=== PATIENT | male | born 1940 | race Caucasian/White ===

== ENCOUNTER 2024-06-28 05:46 | Emergency (ER) | payer MEDICARE, SELFPAY ==
[2024-06-28 05:52] VITALS: BP 166/88; PULSE 98; TEMP 37.2; O2SAT 91; BMI 22.6
--- NOTE | 2024-06-28 06:37 | ED_ITS ---
HPI - Abdominal Pain General Chief Complaint: Abdominal Pain Stated Complaint: LEFT FLANK PAIN Time Seen by Provider: 06/28/24 06:21 Source: patient Mode of arrival: walk-in Limitations: no limitations History of Present Illness HPI narrative: 83-year-old male to the emergency department with chief complaint of left-sided flank/abdominal pain. Patient reports it has been ongoing for the last week. He reports it is intermittent in nature. It was worse tonight. Seems to have moved lower to the level of the hip. He reports a history of kidney stones with similar symptoms. He denies any fever, sweats, chills, nausea, vomiting. No blood in the urine. No dysuria, urgency, frequency. He is otherwise at his baseline health. Reports normal bowel movements. Related Data Allergies Allergy/AdvReac Type Severity Reaction Status Date / Time codeine Allergy Unknown Unknown Verified 06/28/24 05:52 Review of Systems ROS Status of ROS 10 or more systems reviewed and unremark able except as noted in history and below PFSH PFSH Social History Little interest or pleasure in doing things: not at all Feeling down, depressed, or hopeless: not at all Exam Narrative Exam Narrative: VITALS: I have reviewed the triage vital signs. GENERAL: Well developed, well appearing adult in no acute distress. NEURO: Alert and oriented. Moves all extremities. Face is symmetric and expressive. EYES: PERRL. No scleral icterus or conjunctival injection. No discharge. HENT: Normocephalic, atraumatic. Hearing is grossly intact. Nares grossly patent and without discharge. Mucous membranes moist. NECK: No JVD. Patient moves neck without restriction. CARDIO: Rhythm regular. Normal rate. No murmur, rub, or gallop. Pulses equal bilaterally in the upper and lower extremity. No lower extremity edema. PULM: Lungs clear to auscultation in all live. No wheezes, rales, or rhonchi. No conversational dyspnea. No splinting, stridor, or accessory muscle use. GI/: Abdomen is soft and non-tender. Normoactive bowel sounds. EXTREMITIES: Symmetric muscle bulk. No joint swelling. No clubbing, cyanosis, or deformity. SKIN: Warm and dry. Normal turgor. No rash or lesions appreciated. PSYCH: Mood, affect, and interaction is appropriate to the setting. Constitutional Vital Signs, click to edit/add: Last Vital Signs Temp 98.9 F 06/28/24 05:52 Pulse 98 H 06/28/24 05:52 Resp 18 06/28/24 05:52 BP 166/88 H 06/28/24 05:52 Pulse Ox 91 L 06/28/24 05:52 O2 Del Method Room Air 06/28/24 05:52 Course Vital Signs Vital signs: Vital Signs Temperature 98.9 F 06/28/24 05:52 Pulse Rate 98 H 06/28/24 05:52 Respiratory Rate 18 06/28/24 05:52 Blood Pressure 166/88 H 06/28/24 05:52 Pulse Oximetry 91 L 06/28/24 05:52 Oxygen Delivery Method Room Air 06/28/24 05:52 Temperature 98.9 F 06/28/24 05:52 Pulse Rate 98 H 06/28/24 05:52 Respiratory Rate 18 06/28/24 05:52 Blood Pressure 166/88 H 06/28/24 05:52 Pulse Oximetry 91 L 06/28/24 05:52 Oxygen Delivery Method Room Air 06/28/24 05:52 MDM - Abdominal Pain MDM Narrative Medical decision making narrative: 83-year-old male to the emergency department chief complaint of left lower quadrant pain. Vital stable, the patient is afebrile. He has no tenderness on exam. CT scan without contrast is ordered to look for kidney stone. CBC, chemistry, urinalysis is ordered. He declines any pain medication. Care was signed out to Dr. Iqbal with results of diagnostic workup and disposition pending. Differential Diagnosis Differential diagnosis: Likely abdominal pain, calculus of kidney, constipation and diverticulitis Medical Records Attestation: I reviewed the patient's medical records. Discharge Plan Discharge Chief Complaint: Abdominal Pain Clinical Impression: Abdominal pain Patient Disposition: Still a Patient Print Language: Azerbaijani Referrals: MARII VAZQUEZ [Primary Care Provider] - 1 week
--- NOTE | 2024-06-28 06:37 | CT_ITS ---
[address] [address] Patient Name: NEGAR SABA MRN: [id number] date: 1940 Sex: M Assigned Patient Location: ER Current Patient Location: .[facility] Accession/Order Number: [id number] Exam Date: 06/28/2024 06:50 Report Date: 06/28/2024 07:23 At the request of: NGOC ALCARAZ Procedure: CT abdomen pelvis wo con EXAMINATION: CT abdomen pelvis wo con HISTORY: left flank pain COMPARISON: No relevant comparison available. TECHNIQUE: Axial, Coronal, and Sagittal images were created without IV contrast. Dose reduction techniques were achieved by using automated exposure control and/or adjustment of mA and/or kV according to patient size and/or use of iterative reconstruction technique. FINDINGS: LUNG BASES: Severe centrilobular emphysema. Focal density identified medial basilar segment of the right lower lobe axial image #5 measuring 3.8 x 1.9 cm LIVER: Scattered subcentimeter hypodensities too small to characterize BILIARY: No dilatation or calcification. PANCREAS: No lesion, fluid collection, ductal dilatation, or atrophy. SPLEEN: No enlargement or focal lesion. ADRENALS: No mass or enlargement. KIDNEYS: Right renal cortical cyst. Asymmetric enlargement of the left kidney with perinephric stranding. Moderate left hydroureteronephrosis extending to a 5.9 mm proximal ureterolith axial image #53. BOWEL/MESENTERY: Moderate hiatal hernia. Nonobstructive bowel gas pattern AORTA/VASCULAR: No aortic aneurysm. Extensive calcific atherosclerosis RETROPERITONEUM: No mass or adenopathy. LYMPH NODES: No adenopathy. URINARY BLADDER: Calcifications identified layering dependently within the urinary bladder, indeterminate measuring up to 10 mm PELVIC ORGANS: Enlarged prostate with calcifications ABDOMINAL WALL: No mass or hernia. BONES: No bony lesion or fracture. OTHER: Negative. CT/CT abdomen pelvis wo con IMPRESSION: 5.9 mm proximal left ureterolith with moderate obstructive uropathy Calcifications in the urinary bladder, indeterminate Right basilar infiltrate, atelectasis suspected Electronically authenticated by: ZEKE TREVINO Date: 06/28/2024 07:23
[2024-06-28 06:51] LABS: Basophils Absolute Auto 0.1 10^3/uL (0.0-0.1); Basophils Percent Auto 0.6 % (0.2-2.0); Eosinophils Absolute Auto 0.1 10^3/uL (0.0-0.7); Hematocrit 45.5 % (42.0-54.0); Hemoglobin 15.3 g/dL (14.0-18.0); Immature Granulocytes Abs Auto 0.04 10^3/uL (0.00-0.03); Immature Granulocytes Pct Auto 0.3 % (0.0-0.5); Mean Corpuscular HGB Conc 33.6 g/dL (29.9-35.2); Mean Corpuscular Hemoglobin 30.8 pg (25.9-34.0); Mean Corpuscular Volume 91.5 fL (80.0-94.0); Mean Platelet Volume 9.2 fL (9.5-13.5); Monocytes Absolute Auto 1.4 10^3/uL (0.3-0.8); Monocytes Percent Auto 11.1 % (1.7-12.0); Neutrophils Absolute Auto 10.1 10^3/uL (1.4-6.5); Platelet Count 371 10^3/uL (150-450); Red Blood Count 4.97 10^6/uL (4.70-6.10); Red Cell Distribution Width 13.2 % (11.0-15.0); White Blood Count 12.8 10^3/uL (4.0-11.0)
[2024-06-28 06:51] LABS: Bilirubin Urine NEGATIVE (NEGATIVE); Blood Urine MODERATE (NEGATIVE); Clarity Urine CLEAR (CLEAR); Color Urine LT. YELLOW (YELLOW); Glucose Urine UA NEGATIVE (NEGATIVE); Ketones Urine 15 mg/dL (NEGATIVE); Leukocyte Esterase Urine NEGATIVE (NEGATIVE); Nitrite Urine NEGATIVE (NEGATIVE); Protein Urine 30 mg/dL (NEG/TRACE); Specific Gravity Urine 1.025 (1.005-1.025); Urobilinogen Urine 0.2 EU/dL (0.2-1.0); pH Urine 5.5 (5.0-9.0)
[2024-06-28 07:00] LABS: Anion Gap 11.1; BUN Creatinine Ratio 13.1; Calcium 9.4 mg/dL (8.5-10.1); Carbon Dioxide 26.6 mmol/L (21.0-32.0); Chloride 98 mmol/L (98-107); Estimated GFR (African America 39 (>=60 mL/min/1.73m^2); Estimated GFR (Non-African Ame 32 (>=60 mL/min/1.73m^2); Glucose 140 mg/dL (74-106); Potassium 3.7 mmol/L (3.5-5.1); Sodium 132 mmol/L (136-145)
[2024-06-28 07:13] LABS: RBC Urine 0-2 #/HPF (0-2); WBC Urine 0-2 #/HPF (NONE SEEN)
[2024-06-28 07:14] LABS: Bacteria Urine NONE SEEN #/HPF (NONE SEEN); Calcium Oxalate Crystals Urine RARE; Crystals Seen? Seen #/HPF (None Seen); Mucus Urine NONE SEEN (NONE SEEN); Squamous Epithelial Cell Urine FEW #/LPF (NONE/RARE)
[2024-06-28 07:15] LABS: Urine Culture Indicated NO
--- NOTE | 2024-06-28 07:50 | ED.GENADUL1 ---
HPI HPI - General Adult General Chief complaint: Abdominal Pain Stated complaint: LEFT FLANK PAIN Time Seen by Provider: 06/28/24 06:21 Source: patient Mode of arrival: walk-in Limitations: no limitations History of Present Illness HPI narrative: 83-year-old male presented to the emergency department and was initially seen by Dr. Slaughter and signed out to me after discussing the case with him thoroughly. Please see his full history and physical exam. Related Data Previous Rx's ?Medication ?Instructions ?Recorded ondansetron 4 mg disintegrating 4 mg PO Q6H PRN nausea and 06/28/24 tablet vomiting #20 tabs tamsulosin 0.4 mg capsule (Flomax) 0.4 mg PO DAILY #7 caps 06/28/24 tramadol 25 mg tablet 25 mg PO Q6H PRN pain #14 tabs 06/28/24 Allergies Allergy/AdvReac Type Severity Reaction Status Date / Time codeine Allergy Unknown Unknown Verified 06/28/24 05:52 Opioid HPI Opioid Management Most Recent Opioid Data: No Data to Display PFSH PFSH Social History Little interest or pleasure in doing things: not at all Feeling down, depressed, or hopeless: not at all Exam Constitutional Vital Signs, click to edit/add: Last Vital Signs Temp 98.9 F 06/28/24 05:52 Pulse 98 H 06/28/24 05:52 Resp 18 06/28/24 05:52 BP 166/88 H 06/28/24 05:52 Pulse Ox 91 L 06/28/24 05:52 O2 Del Method Room Air 06/28/24 05:52 Course Vital Signs Vital signs: Vital Signs Temperature 98.9 F 06/28/24 05:52 Pulse Rate 98 H 06/28/24 05:52 Respiratory Rate 18 06/28/24 05:52 Blood Pressure 166/88 H 06/28/24 05:52 Pulse Oximetry 91 L 06/28/24 05:52 Oxygen Delivery Method Room Air 06/28/24 05:52 Temperature 98.9 F 06/28/24 05:52 Pulse Rate 98 H 06/28/24 05:52 Respiratory Rate 18 06/28/24 05:52 Blood Pressure 166/88 H 06/28/24 05:52 Pulse Oximetry 91 L 06/28/24 05:52 Oxygen Delivery Method Room Air 06/28/24 05:52 Medical Decision Making MDM Narrative Medical decision making narrative: 5.9 mm ureteral stone is identified on the CAT scan. No evidence of UTI and he is discharged home with prescriptions for Flomax, Ultram, and Zofran. The patient states that he is very sensitive to pain medications and that he cannot take codeine so I will put him on a very low-dose of Ultram. Treatment diagnosis and follow-up were discussed with the patient and his . Differential Diagnosis Differential Diagnosis: Kidney stone, UTI Lab Data Lab results reviewed: Yes I reviewed the patient's lab results Labs: Lab Results 06/28/24 06/28/24 Range/Units 06:40 06:45 WBC 12.8 H (4.0-11.0) 10^3/uL RBC 4.97 (4.70-6.10) 10^6/uL Hgb 15.3 (14.0-18.0) g/dL Hct 45.5 (42.0-54.0) % MCV 91.5 (80.0-94.0) fL MCH 30.8 (25.9-34.0) pg MCHC 33.6 (29.9-35.2) g/dL RDW 13.2 (11.0-15.0) % Plt Count 371 (150-450) 10^3/uL MPV 9.2 L (9.5-13.5) fL Neut % (Auto) 79.0 H (43.0-75.0) % Lymph % (Auto) 8.0 L (20.5-60.0) % [place] % (Auto) 11.1 (1.7-12.0) % Eos % (Auto) 1.0 (0.9-7.0) % Baso % (Auto) 0.6 (0.2-2.0) % Neut # (Auto) 10.1 H (1.4-6.5) 10^3/uL Lymph # (Auto) 1.0 L (1.2-3.8) 10^3/uL [place] # (Auto) 1.4 H (0.3-0.8) 10^3/uL Eos # (Auto) 0.1 (0.0-0.7) 10^3/uL Baso # (Auto) 0.1 (0.0-0.1) 10^3/uL Abs Immat Gran (auto) 0.04 H (0.00-0.03) 10^3/uL Imm/Tot Granulo (auto) 0.3 (0.0-0.5) % Sodium 132 L (136-145) mmol/L Potassium 3.7 (3.5-5.1) mmol/L Chloride 98 (98-107) mmol/L Carbon Dioxide 26.6 (21.0-32.0) mmol/L Anion Gap 11.1 BUN 26.0 H (7.0-18.0) mg/dL Creatinine 1.99 H (0.70-1.30) mg/dL Est GFR ( Amer) 39 L (>=60 mL/min/1.73m^2) Est GFR (Non-Af Amer) 32 L (>=60 mL/min/1.73m^2) BUN/Creatinine Ratio 13.1 Glucose 140 H (74-106) mg/dL Calcium 9.4 (8.5-10.1) mg/dL Urine Color Lt. yellow (YELLOW) Urine Clarity Clear (CLEAR) Urine pH 5.5 (5.0-9.0) Ur Specific [place] 1.025 (1.005-1.025) Urine Protein 30 A (NEG/TRACE) mg/dL Urine Glucose (UA) Negative (NEGATIVE) mg/dL Urine Ketones 15 A (NEGATIVE) mg/dL Urine Occult Blood Moderate A (NEGATIVE) Urine Nitrite Negative (NEGATIVE) Urine Bilirubin Negative (NEGATIVE) Urine Urobilinogen 0.2 (0.2-1.0) EU/dL Ur Leukocyte Esterase Negative (NEGATIVE) Urine RBC 0-2 (0-2) #/HPF Urine WBC 0-2 A (NONE SEEN) #/HPF Ur Squamous Epith Cells Few A (NONE/RARE) #/LPF Urine Crystals Seen A (None Seen) #/HPF Calcium Oxalate Crystal Rare Urine Bacteria None seen (NONE SEEN) #/HPF Urine Mucus None seen (NONE SEEN) Ur Culture Indicated? No Imaging Data CT scan - abdomen: Radiologist's impression: ITS Impressions Abdomen/Pelvis CT 06/28/24 06:37 IMPRESSION: 5.9 mm proximal left ureterolith with moderate obstructive uropathy Calcifications in the urinary bladder, indeterminate Right basilar infiltrate, atelectasis suspected Electronically authenticated by: ZEKE TREVINO Date: 06/28/2024 07:23 Discharge Plan Discharge Chief Complaint: Abdominal Pain Clinical Impression: Kidney stone Patient Disposition: Home, Self-Care Time of Disposition Decision: 07:47 Condition: Good Mode of Transportation: Private Vehicle Prescriptions / Home Meds: New tamsulosin [Flomax] 0.4 mg capsule 0.4 mg PO DAILY Qty: 7 0RF ondansetron 4 mg tablet,disintegrating 4 mg PO Q6H PRN (Reason: nausea and vomiting) Qty: 20 0RF tramadol 25 mg tablet 25 mg PO Q6H PRN (Reason: pain) Qty: 14 0RF Print Language: Nigerien Instructions: Kidney Stones (ED), How to Strain Your Urine (ED) Referrals: MARII VAZQUEZ [Primary Care Provider] - 1 week Clyde Goodson MD [Physician] - 1 week
== END 2024-06-28 07:58 | disposition home or self-care (01) ==
PROVIDERS: Student in an Organized Health Care Education/Training Program; Emergency Provider Emergency Medicine; PCP Internal Medicine
DX: N20.0 Calculus of kidney (principal)
CPT/HCPCS: 36415; 74176; 80048; 81001; 85025; 99284

== ENCOUNTER 2025-02-08 11:05 | Emergency (ER) | payer MEDICARE, SELFPAY ==
--- OUTSIDE RECORDS SUMMARY | 2025-01-26 10:28 | XMS_ITS | Encounter Summary ---
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 to be water-tight. An intracameral injection of moxifloxa yuki/hydrocortisone was injected at the end of the case for antiinfective and antiinflammatory prophylaxis. The wound was watertight, and the intraocular pressure to be adequate. The drapes were removed, a drop of prednisolone sodium phosphate/bromphenac/moxifloxacin was placedinto the patient's operative eye, and a plastic eye shield was placed. The patient was taken from the operative suite suffering no complications. documented in this encounter Plan of Treatment Not on file documented as of this encounter Goals Goal Patient Goal Type Associated Problems Recent Progress Patient-Stated? Author Home with OP therapy General Yes Jeanette Orozco RN Note: Evaluation of progress towards goal: Patient plans to return home with OP therapy. documented as of this encounter Procedures Procedure Name Priority Date/Time Associated Diagnosis Comments DE REMV CATARACT EXTRACAP,INSERT LENS 01/26/2025 11:52 AM EDT cataract left eye documented in this encounter Visit Diagnoses Not on filedocumented in this encounter Administered Medications Inactive Administered Medications - up to 3 most recent administrations Medication Order MAR Action Action Date Dose Rate Site lactated ringers infusion 20 mL/hr, intravenous, Continuous, Starting on Vicki 01/26/25 at 1100, Pre-op Restarted 01/26/2025 12:09 PM EDT Continued by Anesthesia 01/26/2025 11:51 AM EDT 20 mL/hr New Bag 01/26/2025 11:06 AM EDT 20 mL/hr 20 mL/hr moxifloxacin 0.5%-prednisoLONE 1%-bromfenac 0.09% ophthalmic drops - Buderer 1 drop, left eye, Every 10 min, First dose on Vicki 01/26/25 at 1100, For 2 doses, Pre-op, Instill into operative eye every ten minutes for 2 doses. Look-alike/sound-alike medication - verify indication for use. Given 01/26/2025 12:01 PM EDT 1 d rop Given 01/26/2025 10:58 AM EDT 1 drop Given 01/26/2025 10:47 AM EDT 1 drop phenylephrine 3.5%, tropicamide 1% in SWFI ophth solution 1 drop, left eye, Every 10 min, First dose on Vicki 01/26/25 at 1100, For 4 doses, Pre-op Given 01/26/2025 11:15 AM EDT 1 drop Given 01/26/2025 11:06 AM EDT 1 drop Given 01/26/2025 10:58 AM EDT 1 drop tetracaine HCl (PF) (ALTACAINE) 0.5 % ophthalmic solution 1 drop 1 drop, left eye, Every 10 min PRN, q 10 minutes x 4, Starting on Vicki 01/26/25 at 1047, For 4 doses, Pre-op Given 01/26/2025 11:15 AM EDT 1 drop Given 01/26/2025 11:06 AM EDT 1 drop Given 01/26/2025 10:58 AM EDT 1 drop documented in this encounter Active and Recently Administered Medications Times are shown in EDT. Scheduled Medication Order 01/24/2025 01/25/2025 01/26/2025 lidocaine 0.75% EPINEPHrine 1:4000 in BSS metabisulfite and PF sterile injection (COMPLETED) left eye, Once, On Vicki 01/26/25 at 1100, For 1 dose, Pre-op, For intraoperative use. Look-alike/sound-alike medication - verify indication for use. 1100 (Due)1200 (Give n - Provider: Danette Santa MD) moxifloxacin 0.5%-prednisoLONE 1%-bromfenac 0.09% ophthalmic drops - Buderer (COMPLETED) 1 drop, left eye, Every 10 min, First dose on Vicki 01/26/25 at 1100, For 2 doses, Pre-op, Instill into operative eye every ten minutes for 2 doses. Look-alike/sound-alike medication - verify indication for use. 1047 (Given - Provid er: Kallie Gunderson RN)1058 (Given - Provider: Kallie Gunderson RN)1201 (Given - Provider: Renée Saravia, CAT - Comment: Per ) moxifloxacin 0.5mg, hydrocortisone 920 mcg (sod succinate) in BSS per 0.2mL ophth solution (COMPLETED) 0.5 mL, left eye, Once, On Vicki 01/26/25 at 1100, For 1 dose, Pre-op, For intraoperative use. 1100 (Due)1200 (Give n - Provider: Danette Santa MD) phenylephrine 3.5%, tropicamide 1% in SWFI ophth solution (COMPLETED) 1 drop, left eye, Every 10 min, First dose on Vicki 01/26/25 at 1100, For 4 doses, Pre-op 1047 (Given - Provid er: Kallie Gunderson RN)1058 (Given - Provider: Kallie Gunderson RN)1106 (Given - Provider: Zenobia Singh RN)1115 (Given - Provider: Zenobia Singh RN) Continuous Medication Order 01/24/2025 01/25/2025 01/26/2025 lactated ringers infusion (CANCELED) 20 mL/hr, intravenous, Continuous, Starting on Vicki 01/26/25 at 1100, Pre-op 1106 (New Bag - Prov ider: Zenobia Singh RN)1151 (Continued by Anesthesia - Provider: KENDRA Merrill)1208 (Paused - Provider: KENDRA Merrill - Comment: Switch to gravity)1209 (Restarted - Provider: KENDRA Merrill)1238 (Due: Order Ending - Provider: Automatic Transfer Provider - Comment: [Order ends at this time. Document the following action when infusion is complete: Stop Bag]) PRN Medication Order 01/24/2025 01/25/2025 01/26/2025 balanced salt soln no.1 irrig. (BSS PLUS) solution (CANCELED) As needed, Starting on Vicki 01/26/25 at 1159, Intra-op 1159 (Given - Provid er: Danette Santa MD - Comment: with epi) balanced salt soln no.2 irrig. (BSS) solution (CANCELED) As needed, Starting on Vicki 01/26/25 at 1159, Intra-op 1159 (Given - Provid er: Danette Santa MD) chondroitin sulf-sod hyaluron (DISCOVISC) intra-ocular injection (CANCELED) As needed, Starting on Vicki 01/26/25 at 1159, Intra-op 1159 (Given - Provid er: Danette Santa MD) EPINEPHrine (ADRENALIN) 1 mg/mL (1 mL) injection (CANCELED) As needed, Starting on Vicki 01/26/25 at 1159, Intra-op 1159 (Given - Provid er: Danette Santa MD - Comment: in BSS PLUS) hypromellose 2 % intraocular injection (CANCELED) As needed, Starting on Vicki 01/26/25 at 1200, Intra-op 1200 (Given - Provid er: Dantete Santa MD) lidocaine (XYLOCAINE) 2 % jelly (CANCELED) As needed, Starting on Vicki 01/26/25 at 1154, Intra-op 1154 (Given - Provid er: Danette Santa MD) tetracaine HCl (PF) (ALTACAINE) 0.5 % ophthalmic solution 1 drop (COMPLETED) 1 drop, left eye, Every 10 min PRN, q 10 minutes x 4, Starting on Vicki 01/26/25 at 1047, For 4 doses, Pre-op 1047 (Given - Provid er: Kallie Gunderson RN)1058 (Given - Provider: Kallie Gunderson RN)1106 (Given - Provider: Zenobia Singh RN)1115 (Given - Provider: Zenobia Singh RN) tetracaine HCl (PF) (ALTACAINE) 0.5 % ophthalmic solution (CANCELED) As needed, Starting on Vicki 01/26/25 at 1153, Intra-op 1145 (Given - Provid er: Austin North RN) documented in this encounter Additional Health Concerns Assessment Noted Time PHQ-9 Depression Total Score: 0 04/06/20 24 6:16 PM EST documented as of this encounter Care Teams Resident Care Supervisor Relationship Specialty Start Date End Date Damion Nuñez MD [address] [address] PCP - General Internal Medicine 02/17/18 documented as of this encounter
--- OUTSIDE RECORDS SUMMARY | 2025-01-26 11:51 | XMS_ITS | Encounter Summary ---
Author Organization [facility] tem Address [id number] [address] [place] [address] Care Team Providers Care Communication Technician Name Role Phone Damion Nuñez MD Primary Care Provider [phone] Reason for Visit * Auth/Cert Specialty Diagnoses / Procedures Referred By Yessica t Referred To Contact Diagnoses cataract left eye Procedures CA REMV CATARACT EXTRACAP,INSERT LENS EXTRACTION CATARACT INTRAOCULAR LENS Danette Santa MD [address] [place] [id number] Phone: tel: fax: Referral ID Status Reason Start Date Expiration Date Visits Re quested Visits Authorized [id number] 1 1 Encounter Details Date Type Department Care Team (Late st Contact Info) Description 01/26/2025 11:51 AM EDT Anesthesia Event [facility] - Surgery [address] [place] [address] Ryan Brown, DO [address] [place] [address] Anesthesia Record Procedure Summary Procedure Name Responsible Anesthesiologist Anesthesia Start Time Anesthesia Stop Time EXTRACTION CATARACT INTRAOCULAR LENS (Left: Eye) Ryan Brown DO 01/26/25 1151 01/26/25 1212 Events Date Time Event Comment 01/26/2025 1036 1151 An Start 1152 An Start Data 1152 An Induction The patient was reevaluated immediately before moderate or deep sedation use and before anesthesia induction. 1152 Patient Ready for Surgeon 1152 Position 1212 an stop data 1212 Transport/Transfer From the OR 1212 Handoff to RN Transported to :Phase II, Spontaneous Ventilation, O2 per Nasal Cannula, 3 LPM Pt. Tolerated procedure well, vital signs stable and document on nursing record Care transferred to receiving RN 1212 An Stop Meds Name Total midazolam (VERSED) injection 2 mg/2 mL 2 mg fentaNYL (SUBLIMAZE) injection 100 mcg lactated ringers infusion 300 mL * Agents No agents on file. * Blood No blood administrations on file. Lines, Drains, and Airways Type Details Placement Removal Wound 01/12/25; 1055; Inci arpit; Eye; Right; LENS SHLD CLR TIDISHIELD ANFG ANST [id number] DISP REPOSABLES 01/12/25 1055 by Karely Santos RN Wound 01/26/25; 1106; Inci arpit; Eye; Left; Clear eye shield 01/26/25 1106 by Renée Saravia RN Peripheral IV Placement Date: 12/31 01/23; Placement Time: 1057; Orientation: Left, Posterior; Location: Hand; Site Prep: Chlorhexadine and isopropyl alcohol; Local Anes: None; Technique: Anatomical landmarks; Inserted by: puja lawson; Insertion Attempts: 1; Patient Tolerance: Tolerated well; Removal Date: 01/26/25; Removal Time: 1238 01/26/25 1057 by Kallie Gunderson RN 01/26/25 1238 by Pat Gunderson RN documented in this encounter Social History Tobacco Use Types Packs/Day Years Used Date Smoking Tobacco: Former Cigarettes Q uit: 01/12/2002 Smokeless Tobacco: Never Comments:quit 20 years ago. Alcohol Use Standard Drinks/Week Comments Yes 0 (1 standard drink = 0.6 oz pur e alcohol) occasional [facility] Utilities Answer Date Recorded In the past 12 months has [employer], oil, or water [employer] threatened to shut off services in your [...] week 04/06/2024 How often do you attend [facility] or hindu services? Never 04/06/2024 Do you belong to any clubs o r organizations such as synagogue groups, unions, fraternal or athletic groups, or [...] Answer Date Recorded Total Score 0 04/06/2024 [facility] - Occupational Stress Questionnaire Answer Date Recorded [...] Recorded Do you need help finding a [facility] career center and/or a training program? No [...] PM EST documented as of this encounter OR Notes * Anesthesia Postprocedure Evaluation - Ryan Brown DO - 01/26/2025 12:32 PM EDT ANESTHESIA POST-EVALUATION [facility] Procedure Summary Date: 01/26/25 Room / Location: [address] SURGERY Anesthesia Start: 1151 Anesthesia Stop: 1212 Procedure: EXTRACTION CATARACT INTRAOCULAR LENS (Left: Eye) Diagnosis: (cataract left eye) Surgeons: Danette Santa MD Responsible Provider: Ryan Brown DO Anesthesia Type: MAC ASA Status: 3 Vitals: 01/26/25 1215 BP: 159/82 Pulse: 62 Resp: 13 Temp: 36.4 ??C (97.5 ??F) SpO2: 96% Patient Evaluated: Phase II Patient Participation: Complete - patient participated Patient Level of Consciousness: Awake and Alert Pain Score: 2 Pain Management: Adequate Airway Patency: Patent Anesthetic Complications: No Cardiovascular Status: Hemodynamically Stable Respiratory Status: Stable/Baseline Post-op Hydration: Euvolemic Final Anesthesia Type: MAC No notable events documented. * Anesthesia Preprocedure Evaluation - Ryan Brown DO - 12/28/2024 8:21 AM EDT Images from the original note were not included. ANESTHESIA PRE-PROCEDURE EVALUATION [facility] Procedure(s): EXTRACTION CATARACT INTRAOCULAR LENS ANESTHESIA PHYSICAL EXAM Patient summary reviewed and nursing notes reviewed. Airway Mallampati: II TM distance: <3 FB Neck ROM: Limited Patient is not intubated Patient does not have tracheostomy Dental Pulmonary : exam normal Cardiovascular : exam normal Neuro Abdominal : exam normal Other Findings ANESTHESIA PLAN ASA 3 Anesthesia Type: MAC Induction: Intravenous Anesthetic risks, plan and alternatives discussed with Patient. Plan discussed with POSTAL INSPECTOR. Airway Management: Nasal Cannula Transfer to Phase II PONV: Low Risk Total Score: 1 Non-smoker Criteria that do not apply: Female patient History of PONV and/or Motion Sickness Intended opioid administration RCRI: Low Risk: Score of 0 = 3.9% (2.8-5.4%) Risk of major cardiac event Score of 1 = 6.0% (4.9-7.4%) Risk of major cardiac event Total Score: 0 Criteria that do not apply: Cerebrovascular Disease Ischemic Heart Disease Congestive Heart Failure Elevated Risk Surgery Pre-operative Treatment with Insulin Pre-operative Creatinine >2 mg/dL / 176.8 mol/L Patient Active Problem List Diagnosis Nephrolithiasis Mineral metabolism disorder Renal cyst Prostate cancer ([facility] Renal insufficiency Calculus of upper urinary tract Closed fracture of right tibia and fibula, initial encounter Acute respiratory failure with hypoxia ([facility]) Other emphysema ([facility]) documented in this encounter Plan of Treatment Not on file documented as of this encounter Goals Goal Patient Goal Type Associated Problems Recent Progress Patient-Stated? Author Home with OP therapy General Yes Jeanette Orozco RN Note: Evaluation of progress towards goal: Patient plans to return home with OP therapy. documented as of this encounter Visit Diagnoses Not on filedocumented in this encounter Administered Medications Inactive Administered Medications - up to 3 most recent administrations Medication Order MAR Action Action Date Dose Rate Site fentaNYL (SUBLIMAZE) injection intravenous, As needed, Starting on Vicki 01/26/25 at 1154, Anesthesia Intra-op Given 01/26/2025 12:00 PM EDT 50 mcg Given 01/26/2025 11:54 AM EDT 50 mcg lactated ringers infusion 20 mL/hr, intravenous, Continuous, Starting on Vicki 01/26/25 at 1100, Pre-op Restarted 01/26/2025 12:09 PM EDT Continued by Anesthesia 01/26/2025 11:51 AM EDT 20 mL/hr New Bag 01/26/2025 11:06 AM EDT 20 mL/hr 20 mL/hr midazolam (VERSED) injection intravenous, As needed, Starting on Vicki 01/26/25 at 1151, Anesthesia Intra-op Given 01/26/2025 11:51 AM EDT 2 mg documented in this encounter Additional Health Concerns Assessment Noted Time PHQ-9 Depression Total Score: 0 04/06/20 24 6:16 PM EST documented as of this encounter Care Teams Communication Technician Relationship Specialty Start Date End Date Damion Nuñez MD [address] [phone] PCP - General Internal Medicine 02/17/18 documented as of this encounter
--- OUTSIDE RECORDS SUMMARY | 2025-01-26 12:45 | XMS_ITS | Encounter Summary ---
Author Organization [employer] [facility] [employer] [facility] Address [facility] [id number] [address] [place] [address] Care Team Providers Care Superintendent Container Terminal Name Role Phone Damion Nuñez MD Primary Care Provider [phone] Reason for Visit * Auth/Cert Specialty Diagnoses / Procedures Referred By Yessica t Referred To Contact Diagnoses cataract left eye Procedures VA REMV CATARACT EXTRACAP,INSERT LENS EXTRACTION CATARACT INTRAOCULAR LENS Danette Santa MD [address] [place] [id number] Phone: tel: fax: Referral ID Status Reason Start Date Expiration Date Visits Re quested Visits Authorized [id number] 1 1 Encounter Details Date Type Department Care Team (Late st Contact Info) Description 01/26/2025 12:45 PM EDT - 01/26/2025 1:30 PM EDT Surgery [facility] - Surgery [address] [place] [id number] Danette Santa MD [address] [place] [address] [phone] EXTRACTION CATARACT INTRAOCULAR LENS [66902 (CPT )] Surgery Details Date/Time Status Location OR Service Patient Class Case Class Case Type Trauma Case? 01/26/2025 12:45 PM Posted [address] Outpatient Surgery Elective Panel 1 Procedure LRB Anes Op Region Wound Class Comments EXTRACTION CATARACT INTRAOCULAR LENS Left Monitored Anesthesia Care Eye Clean Contaminated Surgeon Surgeon Role Service Panel Danette Santa MD Primary Ophthalmology 1 documented in this encounter Social History Tobacco Use Types Packs/Day Years Used Date Smoking Tobacco: Former Cigarettes Q uit: 01/12/2002 Smokeless Tobacco: Never Comments:quit 20 years ago. Alcohol Use Standard Drinks/Week Comments Yes 0 (1 standard drink = 0.6 oz pur e alcohol) occasional [facility] Utilities Answer Date Recorded In the past 12 months has th e electric, gas, oil, or water company threatened to shut off services in your [...] 04/06/2024 How often do you attend chur ch or restoration services? Never 04/06/2024 Do you belong to any clubs o r organizations such as presybeterian groups, unions, fraternal or athletic groups, or [...] Answer Date Recorded Total Score 0 04/06/2024 [place] [facility] - Occupational Stress [...] Recorded Do you need help finding a [facility] career center and/or a training program? No [...] REQUIRE THE PATIENT TO REPURCHASE IT FROM [facility] IN [place], AND REPLACEMENTS ARE NOT COVERED BY MEDICAL INSURANCE. The eye shield is to remain in place for 24 hours after surgery, removing only to put in eye medications. After the first day, the eye shield will be worn when you sleep and when you shower for one week. It is recommended you bring a wheat combine driver to your first postoperative appointment. Activity [...] kept. Please call the [facility] office or [place] office Immediately if you experience any of [...] swallowing) Questions, Problems, Concerns Preop phone number [phone] ext [phone] documented in this encounter Medications at Time of Discharge albuterol (PROVENTIL HFA;VENTOLIN HFA) 90 mcg/actuation inhalerIndication s:Chronic obstructive pulmonary disease, unspecified COPD type ([facility]) Inhale 2 puffs every 6 (six) hours [...] week, then daily for three weeks. 01/26/2025 moxifloxacin HCl (MOXIFLOXACIN 0.5%-PREDNISOLONE 1%-BROMFENAC 0.09% DROPS - BUDERER ) Administer 1 drop into the left eye in the morning and 1 drop before bedtime. Do all this for 30 days. One drop twice a day to operative eye for one week, then daily for three weeks. 01/26/2025 NON FORMULARY Take 12 each by mouth in the morning. Med Name: sun chlorello. NON FORMULARY Take 1 each by mouth in the morning. Med Name: immuno 150. documented as of this encounter H&P Notes * Danette Santa MD - 01/26/2025 11:08 AM EDT HISTORY AND PHYSICAL INTERVAL NOTE: Raul Shea 1940 [id number] H&P reviewed. The patient was examined and [...] 02/04/2017 Performed by Yvon Tello MD at [facility] CYSTOSCOPY HOLMIUM LASER URETEROSCOPY Right 02/04/2017 Performed by Yvon Tello MD at [facility] CYSTOSCOPY LITHOCLAST Right 02/04/2017 Performed by Yvon Tello MD at [facility] CYSTOSCOPY REMOVAL STENT Left 04/08/2021 Performed by Yvon Tello MD at [facility] CYSTOSCOPY REMOVAL STENT Right 02/23/2017 Performed by Yvon Tello MD at [facility] EXTRACTION CATARACT INTRAOCULAR LENS Right 01/12/2025 Performed by Danette Santa MD at [facility] LASER HOLMIUM URETEROSCOPY RENAL STONES < OR=1CM Left 03/25/2021 Performed by Yvon Tello MD at [facility] OPEN REDUCTION INTERNAL FIXATION TIBIA AND FIBULA Right 04/07/2024 Performed by Bradford Meredith MD at [facility] Travel History Travel Screening No screening recorded [...] min Stress: No Stress Concern Present (04/06/2024) [place] [facility] - Occupational Stress Questionnaire Feeling of Stress : Only a little Social Connections: Moderately Isolated (04/06/2024) Social Connection and Isolation Panel [NHANES] Frequency of Communication with Friends and Family: Once a week Frequency of Social Gatherings with Friends and Family: More than three times a week Attends Congregation Services: Never Active Member of Clubs or [...] 02/04/2017 Performed by Yvon Tello MD at [facility] CYSTOSCOPY HOLMIUM LASER URETEROSCOPY Right 02/04/2017 Performed by Yvon Tello MD at [facility] CYSTOSCOPY LITHOCLAST Right 02/04/2017 Performed by Yvon Tello MD at [facility] CYSTOSCOPY REMOVAL STENT Left 04/08/2021 Performed by Yvon Tello MD at [facility] CYSTOSCOPY REMOVAL STENT Right 02/23/2017 Performed by Yvon Tello MD at [facility] EXTRACTION CATARACT INTRAOCULAR LENS Right 01/12/2025 Performed by Danette Santa MD at [facility] LASER HOLMIUM URETEROSCOPY RENAL STONES < OR=1CM Left 03/25/2021 Performed by Yvon Tello MD at [facility] OPEN REDUCTION INTERNAL FIXATION TIBIA AND FIBULA Right 04/07/2024 Performed by Bradford Meredith MD at [facility] Travel History Travel Screening No screening recorded [...] min Stress: No Stress Concern Present (04/06/2024) [place] [facility] - Occupational Stress Questionnaire Feeling of Stress : Only a little Social Connections: Moderately Isolated (04/06/2024) Social Connection and Isolation Panel [NHANES] Frequency of Communication with Friends and Family: Once a week Frequency of Social Gatherings with Friends and Family: More than three times a week Attends Congregation Services: Never Active Member of Clubs or [...] 01/26/2025 11:52 AM EDT Patient Name: Raul Shea MRN Number: [id number] : 1940 Date of Operation: 01/26/25 Surgeon: Danette Santa MD Anesthesia: Topical with IV MAC per Anesthesiologist: Ryan Brown DO SPEECH LANGUAGE PATHOLOGIST ASSISTANT: KENDRA Merrill Preoperative Diagnosis: Nuclear Sclerotic Cataract, LEFT EYE Corneal Astigmatism, LEFT Eye Presbyopia, Left Eye Postoperative Diagnosis: Nuclear Sclerotic Cataract, LEFT EYE Corneal Astigmatism, LEFT Eye Presbyopia, Left Eye Procedure: Phacoemulsification with posterior chamber intraocular lens implantation, LEFT EYE Estimated Blood Loss: NONE Complications: none CDE: 12.60 Specimens: None Implants: Implant Name Type Inv. Item Serial No. Surface To Air Weapons Officer Lot No. LRB No. Used Action Clareon Vivity Toric UV IOL Lens [id number] 22.5 [id number] [employer] NA Left 1 Implanted [...] residual cellular debris was removed with the latvian setting. The capsular bag was inflated with [...] Procedure Name Priority Date/Time Associated Diagnosis Comments VA REMV CATARACT EXTRACAP,INSERT LENS 01/26/2025 11:52 AM EDT cataract left eye documented in this encounter Visit Diagnoses Not on filedocumented in this encounter Administered Medications Inactive Administered Medications - up to 3 most recent administrations Medication Order MAR Action Action Date Dose Rate Site balanced salt soln no.1 irrig. (BSS PLUS) solution As needed, Starting on Vicki 01/26/25 at 1159, Intra-op Given 01/26/2025 11:59 AM EDT 200 mL balanced salt soln no.2 irrig. (BSS) solution As needed, Starting on Vicki 01/26/25 at 1159, Intra-op Given 01/26/2025 11:59 AM EDT 20 mL chondroitin sulf-sod hyaluron (DISCOVISC) intra-ocular injection As needed, Starting on Vicki 01/26/25 at 1159, Intra-op Given 01/26/2025 11:59 AM EDT 1 mL EPINEPHrine (ADRENALIN) 1 mg/mL (1 mL) injection As needed, Starting on Vicki 01/26/25 at 1159, Intra-op Given 01/26/2025 11:59 AM EDT 0.5 mg hypromellose 2 % intraocular injection As needed, Starting on Vicki 01/26/25 at 1200, Intra-op Given 01/26/2025 12:00 PM EDT 1 mL lactated ringers infusion 20 mL/hr, intravenous, Continuous, Starting on Vicki 01/26/25 at 1100, Pre-op Restarted 01/26/2025 12:09 PM EDT Continued by Anesthesia 01/26/2025 11:51 AM EDT 20 mL/hr New Bag 01/26/2025 11:06 AM EDT 20 mL/hr 20 mL/hr lidocaine (XYLOCAINE) 2 % jelly As needed, Starting on Vicki 01/26/25 at 1154, Intra-op Given 01/26/2025 11:54 AM EDT 1 Application Operative Site lidocaine 0.75% EPINEPHrine 1:4000 in BSS metabisulfite and PF sterile injection left eye, Once, On Vicki 01/26/25 at 1100, For 1 dose, Pre-op, For intraoperative use. Look-alike/sound-alike medication - verify indication for use. Given 01/26/2025 12:00 PM EDT 1 mL moxifloxacin 0.5%-prednisoLONE 1%-bromfenac 0.09% ophthalmic drops - Buderer 1 drop, left eye, Every 10 min, First dose on Vicki 01/26/25 at 1100, For 2 doses, Pre-op, Instill into operative eye every ten minutes for 2 doses. Look-alike/sound-alike medication - verify indication for use. Given 01/26/2025 12:01 PM EDT 1 drop Given 01/26/2025 10:58 AM EDT 1 drop Given 01/26/2025 10:47 AM EDT 1 drop moxifloxacin 0.5mg, hydrocortisone 920 mcg (sod succinate) in BSS per 0.2mL ophth solution 0.5 mL, left eye, Once, On Vicki 01/26/25 at 1100, For 1 dose, Pre-op, For intraoperative use. Given 01/26/2025 12:00 PM EDT 0.5 mL phenylephrine 3.5%, tropicamide 1% in SWFI ophth [...] HCl (PF) (ALTACAINE) 0.5 % ophthalmic solution As needed, Starting on Vicki 01/26/25 at 1153, Intra-op Given 01/26/2025 11:45 AM EDT 1 drop Operative Site documented in this encounter Active and Recently [...] eye, Every 10 min, First dose on Vicik 01/26/25 at 1100, For 2 doses, Pre-op, Instill into operative eye every ten minutes for 2 doses. Look-alike/sound-alike medication - verify indication for use. 1047 (Given - Provid er: Kallie Gunderson RN)1058 (Given - Provider: Kallie Gunderson RN)1201 (Given - Provider: Renée Saravia RN - Comment: Per ) moxifloxacin 0.5mg, hydrocortisone [...] 1200, Intra-op 1200 (Given - Provid er: Danette Santa MD) lidocaine (XYLOCAINE) 2 % jelly [...] documented as of this encounter Care Teams Superintendent Container Terminal Relationship Specialty Start Date End Date Damion Nuñez MD [address] [address] PCP - General Internal Medicine 02/17/18 documented as of this encounter
--- OUTSIDE RECORDS SUMMARY | 2025-02-08 11:28 | XMS_ITS | Encounter Summary ---
Author Organization [employer] Address [id number] [address] [place] [address] Care Team Providers Care Chief Procurement Officer Name Role Phone Damion Nuñez MD Primary Care Provider [phone] Encounter Details Date Type Department Care Team ([facility] st Contact Info) Description 04/11/2024 Telephone [facility] Pulmonary/Sleep Medicine [address] [facility] [address] [place] [address] Steffen Awan MD [address] [place] [address] Social History Tobacco Use Types Packs/Day Years Used Date Smoking Tobacco: Former Smokeless Tobacco: Never Comments:quit 20 years ago. Alcohol Use Standard Drinks/Week Comments Yes 0 (1 standard drink = 0.6 oz pur e alcohol) occasional C Utilities Answer Date Recorded In the past 12 months has [employer], gas, oil, or water [employer] [place] threatened to shut off services in your [...] any clubs o r organizations such as adventist groups, unions, fraternal or athletic groups, or [...] Answer Date Recorded Total Score 0 04/06/2024 [facility] ional [facility] - [...] Recorded Do you need help finding a [facility] career center and/or a training program? [...] PM EST documented as of this encounter Miscellaneous Notes * Telephone Encounter - Amina Tatum - 04/11/2024 11:09 AM EST New patient scheduled 05/16 with [facility] in [place] for sob/hypoxia. Will need PFT order. Thanks' documented in this encounter Plan of Treatment Not on file documented as of this encounter Goals Goal Patient Goal Type Associated Problems Recent Progress Patient-Stated? Author Home with OP therapy General Yes Jeanette Orozco, CAT Note: Evaluation of progress towards goal: Patient plans to return home with OP therapy. documented as of this encounter Visit Diagnoses Not on filedocumented in this encounter Additional Health Concerns Assessment Noted Time PHQ-9 Depression Total Score: 0 04/06/20 24 6:16 PM EST documented as of this encounter Care Teams Chief Procurement Officer Relationship Specialty Start Date End Date Damion Nuñez MD [address] [facility] [address] [place] [address] PCP - General Internal Medicine 02/17/18 documented as of this encounter
--- OUTSIDE RECORDS SUMMARY | 2025-02-08 11:28 | XMS_ITS | Encounter Summary ---
Author Organization [employer] Address [facility] [id number] [address] [place] [address] Care Team Providers Care Laboratory Machinist Name Role Phone Damion Nuñez MD Primary Care Provider [phone] Encounter Details Date Type Department Care Team (Late st Contact Info) Description 01/09/2021 Orders Only [facility] [employer] [facility] [place] [address] Transcribe, Orders Support User Pain (Primary Dx) Social History Tobacco Use Types Packs/Day Years Used Date Smoking Tobacco: Former Smokeless Tobacco: Never Alcohol Use Standard Drinks/Week Comments Yes 0 (1 standard drink = 0.6 oz pur e alcohol) Childcare Answer Date Recorded Childcare Unknown 11/10/2018 Employment Answer Date Recorded Employment Unknown 11/10/2018 Purpose - Life Answer Date Recorded Purpose and direction in life Unknown Sex and Gender Information Value Date Recorded Sex Assigned at Not on file Legal Sex Male 11:33 AM EDT Gender Identity Not on file Sexual Orientation Straight 04/06/2024 6: 11 PM EST COVID-19 Exposure Response Date Recorded In the last month, have you been in contact with someone who was confirmed or suspected to have Coronavirus / COVID-19? No / Unsure 01/07/2021 12:30 PM EDT documented as of this encounter Plan of Treatment Not on file documented as of this encounter Results * CT abdomen and pelvis without contrast (12/21/2020 7:30 AM EDT) us Scanning Provider External IMG CT ORDERABLES Fin al Result documented in this encounter Visit Diagnoses Diagnosis Pain- Primary Generalized pain documented in this encounter Care Teams Laboratory Machinist Relationship Specialty Start Date End Date Damion Nuñez MD [address] [facility], [address] [address] PCP - General Internal Medicine 02/17/18 documented as of this encounter
--- OUTSIDE RECORDS SUMMARY | 2025-02-08 11:28 | XMS_ITS | Continuity of Care Document ---
Author Organization [facility] Address [address] [place] [id number] Problems Unknown Problems Results Test Value / Unit Interpretation Reference Ran ge SARS-CoV-2 (COVID-19), RT-PC R/TMA[[id number]] Collected: 04/05/2021 02:58 PM Specimen Received: 04/06/2021 05:06 PM SARS-CoV-2 INTERPRETATION [[id number]] Negative Gayathri l See Note SARS-CoV-2 RNA NOT DETECTEDN egative results do not preclude SARS-CoV-2 infection and should notbe used as the sole basis for patient management decisions. Negativeresults must be combined with clinical observations, patient history,and epidemiological information. Optimum specimen types and timingfor peak viral levels during infections caused by SARS-CoV-2 have notbeen determined. Collection of multiple specimens or types ofspecimens may be necessary to detect virus. Improper specimencollection and handling, sequence variability under primers/probes,or organism present below the limit of detection may lead to falsenegative results. Positive and negative predictive values oftesting are highly dependent on prevalence. False negative testresults are more likely when prevalence is high. SOURCE [[id number]] NASOPHARYNGEAL Normal Note: Methodology is Florin Bridestoryas Real-Time RT-PCR. The expected result or reference range is NEGATIVE (Not Detected). For more information regarding COVID-19 testing to include clinicalinformation, methodology detail, intended use, FDA authorization andrecommended fact sheets for patients or healthcare providers, see NewTest Announcement: SARS-CoV-2 (COVID-19) by NAAT at URL below (note,fact sheets are provided by method given in report:[email or web address]/client-communications/ Alternatively, see downloadable PDF fact sheet at:[email or web address]/DNAHV-49-GQ-PCR Allergies, adverse reactions, alerts No known allergies and adverse reactions Medications No administered medications reported Vital Signs No vital signs reported Social History No smoking Hx information available
--- OUTSIDE RECORDS SUMMARY | 2025-02-08 11:28 | XMS_ITS | Encounter Summary ---
Author Organization [facility] Address [address] [place] [address] Care Team Providers Care Breastfeeding Educator Name Role Phone Damion Nuñez MD Unavailable [phone] Damion Nuñez MD Primary Care Provider [phone] Thursday, Rochelle GOTTI Unavailable [phone] Encounter Details Date Type Department Care Team (Late st Contact Info) Description 04/27/2024 Abstract [facility] Matthew Chen [address] [facility] [address] [place] [phone] Damion Nuñez MD [address] [facility] [address] [place] [address] Social History Tobacco Use Types Packs/Day Years Used Date Smoking Tobacco: Never Smokeless Tobacco: Never Alcohol Use Standard Drinks/Week Comments Yes 1 (1 standard drink = 0.6 oz pur e alcohol) PHQ-2 Answer Date Recorded Patient Health Questionnaire-2 Score 0 12/16/2023 Sex and Gender Information Value Date Recorded Sex Assigned at Not on file Legal Sex Male 8:23 PM EDT Gender Identity Not on file Sexual Orientation Not on file documented as of this encounter Plan of Treatment Upcoming Encounters Date Type Department Care Team (Late st Contact Info) Description 12/04/2025 10:30 AM EDT Office Visit [facility] Chen [address] [facility] [address] [place] [address] Damion Nuñez MD [address] [facility] [address] [place] [address] documented as of this encounter Visit Diagnoses Not on filedocumented in this encounter Care Teams Breastfeeding Educator Relationship Specialty Start Date End Date Damion Nuñez MD [address] [place] [address] [place] [address] PCP - Emilio LICEA 06/01/21 Damion Nuñez MD [address] [place] [address] [place] [address] PCP - General Internal Medicine 12/10/22Thursday, SHEN Byrd [address] [place] [address] Licensed Practical Nurse Family Medicine 05/06/24 05/12/24 documented as of this encounter
--- OUTSIDE RECORDS SUMMARY | 2025-02-08 11:28 | XMS_ITS | Encounter Summary ---
Author Organization [employer] Address [facility] [id number] [address] [place] [address] Care Team Providers Care Levelman Name Role Phone Damion Nueñz MD Primary Care Provider [phone] Encounter Details Date Type Department Care Team (Late st Contact Info) Description 04/12/2024 Orders Only [facility] Pulmonary/Sleep Medicine [address] [facility] [address] [place] [address] Mae Ludwig LPN Acute respiratory failure with hypoxia (CMS-HCC) (Primary Dx) Social History Tobacco Use Types Packs/Day Years Used Date Smoking Tobacco: Former Smokeless Tobacco: Never Comments:quit 20 years ago. Alcohol Use Standard Drinks/Week Comments Yes 0 (1 standard drink = 0.6 oz pur e alcohol) occasional [facility] Utilities Answer Date Recorded In the past 12 months has e electric, gas, oil, or water company [...] often do you attend chur ch or scientologist services? Never 04/06/2024 Do you belong to any clubs o r organizations such as hinduism groups, unions, fraternal or athletic groups, or [...] Answer Date Recorded Total Score 0 04/06/2024 [facility] of Occupat ional Health - Occupational Stress [...] Recorded Do you need help finding a l al career center and/or a training program? No [...] PM EST documented as of this encounter Plan of Treatment Not on file documented as of this encounter Goals Goal Patient Goal Type Associated Problems Recent Progress Patient-Stated? Author Home with OP therapy General Yes Jeanette Orozco RN Note: Evaluation of progress towards goal: Patient plans to return home with OP therapy. documented as of this encounter Results * SPIROMETRY PRE/POST BRONCHODILATOR AND DLCO (04/26/2024 11:26 AM EST) Narrative MANUALLY TRANSCRIBED RESULTS - 05/16/2024 1:03 PM EST Date of Testin05/16/2024 Quality of Data: The patient's efforts are acceptable and reproducible. Test Performed: Pulmonary Function Test Spirometry Findings: Spirometry shows moderately reduced FEV1 to 67 of predicted with improvement by 15% after bronchodilators. Forced vital capacity is normal. FEV1/FVC ratio is severely reduced to 0.36 that improved to 0.45 after bronchodilators however continues to be obstructed. The response to bronchodilators is positive. Flow volume loops is consistent with severe obstructive pattern Diffusion Capacity: Diffusion capacity is reduced to 65% of predicted. Conclusions: The study is consistent with obstructive lung disease with reduction in diffusion capacity indicating parenchymal involvement. Most likely secondary to COPD however there is positive response to bronchodilators. Clinical correlation advised Steffen Awan MD 05/16/24 us Steffen Awan MD PFT ORDERABLES Final Result MANUALLY TRANSCRIBED RESULTS documented in this encounter Visit Diagnoses Diagnosis Acute respiratory failure with hypoxia (CMS-HCC)- Primary Acute respiratory failure with hypoxia (CMS-HCC) documented in this encounter Additional Health Concerns Assessment Noted Time PHQ-9 Depression Total Score: 0 04/06/20 24 6:16 PM EST documented as of this encounter Care Teams Levelman Relationship Specialty Start Date End Date Damion Nuñez MD [address] [facility] [address] [place] [address] PCP - General Internal Medicine 02/17/18 documented as of this encounter
--- OUTSIDE RECORDS SUMMARY | 2025-02-08 11:28 | XMS_ITS | Encounter Summary ---
Author Organization [employer] Address [facility]-[id number] [address] [place] [address] Care Team Providers Care Ranch Hand Name Role Phone Damion Nuñez MD Primary Care Provider [phone] Encounter Details Date Type Department Care Team (Late st Contact Info) Description 12/09/2016 Telephone [facility] [address] [place] [phone] Yvon Tello MD [address] [place] [id number] Social History Tobacco Use Types Packs/Day Years Used Date Smoking Tobacco: Former Smokeless Tobacco: Never Alcohol Use Standard Drinks/Week Comments Yes 0 (1 standard drink = 0.6 oz pur e alcohol) Sex and Gender Information Value Date Recorded Sex Assigned at Not on file Legal Sex Male 11:33 AM EDT Gender Identity Not on file Sexual Orientation Straight 04/06/2024 6: 11 PM EST documented as of this encounter Plan of Treatment Not on file documented as of this encounter Visit Diagnoses Not on filedocumented in this encounter Care Teams Ranch Hand Relationship Specialty Start Date End Date Damion Nuñez MD [address] [facility] [address] [place] [phone] PCP - General Internal Medicine 02/17/18 documented as of this encounter
--- OUTSIDE RECORDS SUMMARY | 2025-02-08 11:28 | XMS_ITS | Encounter Summary ---
Author Organization [facility] Address [address] [place] [address] Care Team Providers Care Subject Scientific Research Name Role Phone Damion Nuñez MD Unavailable [phone] Damion Nuñez MD Primary Care Provider [phone] Encounter Details Date Type Department Care Team (Late Contact Info) Description 06/29/2024 Abstract [facility] [place] [address] [facility] 110 [place] [phone] Damion Nuñez MD [address] [facility] [address] [place] [address] Social History Tobacco Use Types Packs/Day Years Used Date Smoking Tobacco: Never Smokeless Tobacco: Never Alcohol Use Standard Drinks/Week Comments Yes 1 (1 standard drink = 0.6 oz pur e alcohol) PHQ-2 Answer Date Recorded Patient Health Questionnaire-2 Score 0 06/22/2024 Sex and Gender Information Value Date Recorded Sex Assigned at Not on file Legal Sex Male 8:23 PM EDT Gender Identity Not on file Sexual Orientation Not on file documented as of this encounter Plan of Treatment Upcoming Encounters Date Type Department Care Team (Late st Contact Info) Description 12/04/2025 10:30 AM EDT Office Visit [facility] [place] [facility] [address] [facility] [address] [place] [phone] Damion Nuñez MD 112 [facility] [address] [place] [address] documented as of this encounter Visit Diagnoses Not on filedocumented in this encounter Care Teams Subject Scientific Research Relationship Specialty Start Date End Date Damion Nuñez MD [address] [facility] [address] [place] [address] PCP - Emilio LICEA 06/01/21 Damion Nuñez MD [address] [facility] [address] [place] [address] PCP - General Internal Medicine 12/10/22 documented as of this encounter
--- OUTSIDE RECORDS SUMMARY | 2025-02-08 11:28 | XMS_ITS ---
Author Organization [employer] Address [id number] [address] [place] [address] Care Team Providers Care Credit Verification Clerk Name Role Phone Damion Nuñez MD Primary Care Provider [phone] Active Problems Problem Noted Date Diagnosed Date Acute respiratory failure with hypoxia Other emphysema 04/08/2024 Closed fracture of right tib ia and fibula, initial encounter 04/06/2024 Calculus of upper urinary tract 01/22/2021 Overview (01/22/2021): Added automatically from request for surgery [id number] Renal insufficiency 02/17/2018 Overview (01/20/2022): ==== 01/20/2022 ==== most recent creatinine and GFR were normal. Basically 1st baseline creatinine 1.32. Patient really has not had primary medical care for years prior. Patient contact Dr. Nuñez is office. Copy of creatinine given the patient Prostate cancer 12/08/2016 Overview (01/20/2022): ==== 01/20/2022 ==== PSA 6.9.----8.23. September 2021. ==== 07/15/2021 ==== I again went through patient has well as significant other the rationale for active surveillance the need for periodic biopsies revealed discussed imaging study with MRI. Biopsy potentially under anesthesia. He understands all this for an wishes only to follow with PSA potential rectal exams in the future. ==== 01/21/2021 ==== with a discuss prostate cancer after resolution of stone ==== 01/07/2021 ==== lost to follow-up. PSA 6.07 December 2020. LORI is benign ==== 12/08/2016 ==== good size prostate on CT. ==== 04/13/2017 ==== New problem, additional workup planned. PSA 6.89. Previous PSA 6.98. 65 cc prostate #### 2 areas G 3+3=6 5%. NCCN Very low Risk prostate cancer. Life tables approx 17-18 years at the best quartile (average 11.11) ==== 08/10/2017 ==== here with and daughter and He wishes active surveillance. He understands need for psa. He does not want MRI and recent NCCN guidelines no need for molecular testing Assessment & Plan (07/28/2022 2:19 PM EST): Patient is satisfied with monitoring PSA only. PSA 6.9. It is a good number for him. Stable for him. Will see him back in 6 months time with PSA. I ordered 1 but if he gets 1 through his PCP that is fine as well Assessment & Plan (01/20/2022 1:54 PM EDT): Still only wants to check psa only. He is happy at this point. Assessment & Plan (01/07/2021 1:11 PM EDT): Give consideration for MRI or surveillance biopsy. Assessment & Plan (02/17/2018 1:38 PM EDT): The PSA centrally stable. See him back in 6 months time with a PSA repeat. Patient wishes to maintain active surveillance Assessment & Plan (06/08/2017 1:13 PM EST): New problem, additional workup planned. We had long discussion re: the NCCN guidelines and his options. Based on guidelines leaning towards ACtive Surveillance. Name date of confirmed on path report. Path report was given. Printed material given as well. NCCN guidelines as well. PLAN: Return to clinic 2 months. Patient to bring questions. 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 No family history. Mixed calcium oxalate stone. 2014 urine litho link relatively decent. Discussed adding citrate with lemon juice and increasing fluids. ==== 11/26/2016 ==== patient has been drinking fluids as well as taking lemon juice Renal cyst 11/25/2016 Overview (01/20/2022): ==== 01/20/2022 ==== ultrasound stable status no indication for any further evaluation. ==== 07/15/2021 ==== stable simple appearing cyst was visualized on ultrasound +++++++++ 11/25/2016 ALLSCRIPTS SUMMARY +++++++++++ Spring 2013 incidentally found 2.2 cm left exophytic superior pole lesion with questionable calcification. Subsequent MRI demonstrates hyperdense cyst as well as smaller simple cyst. Nephrolithiasis 11/04/2016 Overview (01/20/2022): ==== 01/20/2022 ==== no flank pain. leila is negative for stones and stable mild dilation--not an issue. ==== 07/15/2021 ==== status post left ureteroscopy stent then room placement stent removal. Ultrasound demonstrates basically some fullness left greater than right but bilateral ureteral jets are noted in he is asymptomatic from that standpoint. Repeat ultrasound but 6 months ==== 01/21/2021 ==== no significant discomfort. Stone may have migrated little bit proximally. Hounsfield units are greater than 1300. This would exclude to a degree ESWL. PLAN: Ureteroscopy holmium laser lithotripsy left side ==== 01/21/2021 ==== Established problem, worsening. Acute onset left-sided discomfort ER visit. About a 6-8 mm stone left UPJ. He is on tamsulosin. Plan: Full discussion as below. It is calcified based on the CT KUB portion. By this spine on the left. Acceptable plan for the patient is continue on with medical expulsion therapy KUB in 2 weeks if no progression then proceed with either ESWL or ureteroscopy.. +++++++++ 01/21/2021 ALLSCRIPTS SUMMARY +++++++++++ 2013 through 2014 had a long medical expulsive therapy stone right ureter eventually passed at the time of induction of anesthesia for ureteroscopy. Assessment & Plan (01/21/2021 3:16 PM EDT): We discussed low likelihood of success with ESWL given the Hounsfield units. Discussed higher success rate with the ureteroscopy for proximal stone. Understands may have a stent as well. Understands he could have a ureter which is narrow enough that would necessitate us to place a stent and come back later. Assessment & Plan (01/07/2021 1:04 PM EDT): Urinalysis was obtained: yes today Stone was Documented on imaging (CT/KUB/renal leila) CT scan Stone size and location: left sie approx 8mm prox ureter/UPJ If stone<= 10mm and non-obstructing observation was offered. Yes but not recommended If stone <= 10mm and in the distal ureter Medical expulsive therapy discussed and offered: N/a If observation/ medical expulsive therapy was not elected and the stone was in the proximal ureter, patient was informed the ESWL is the procedure with the least morbidity and lowest complication rate, but URS has a greater stone-free rate in a single procedure.yes If observation/ medical expulsive therapy was not elected and the stone was in the mid or distal ureter URS was discussed as first-line therapy. n/a Assessment & Plan (04/29/2017 1:45 PM EST): Stone protocol CT scans negative for hydronephrosis. Negative for any stones in the ureter. The calcification seen in the dependent portion of the bladder are certainly just that and from his prior cystolitholapaxy. Assessment & Plan (04/13/2017 2:44 PM EST): ==== 04/13/2017 ==== patient did have a right stent removal. Had relief of pain for short period time but has had persistent right-sided colic. Evaluate with CT scan for any residual calculi or any evidence of hydronephrosis. Assessment & Plan (12/08/2016 11:46 AM EDT): Established problem, worsening. Right proximal 8 mm stone. Calcified. Also some bladder stones. Large prostate on CT. Success rate with a ESWL certainly less than ureteroscopy also cannot treat bladder stones with ESWL. Plan: Discussed ureteroscopy in detail. Holmium laser lithotripsy. Probable stenting. In the meantime will give medical expulsive therapy. Assessment & Plan (11/26/2016 1:14 PM EDT): Established problem, worsening. KUB suggests 7 millimeter stone on the right. This will be larger than prior. Therefore CT scan to confirm. Current Treatment and Therapy Plans No current plan information found. Past Treatment and Therapy Plans No past plan information found. Lifetime Dose Tracking * Chemical Lifetime Dose Automatic Entry Manual Entr y Fluoroscopy 44.12 mGy 44.12 mGy 0 mGy Resolved Problems Problem Noted Date Diagnosed Date Resolved Date Urinary urgency 11/25/2016 02/17/2018 Overview (11/25/2016): +++++++++ 11/25/2016 ALLSCRIPTS SUMMARY +++++++++++ Had urgency frequency but these symptoms resolved after stone passage.
--- OUTSIDE RECORDS SUMMARY | 2025-02-08 11:28 | XMS_ITS | Clinical Summary ---
Author Organization [facility] Address [address] [place] [address] Care Team Providers Care Clothes Separator Name Role Phone Damion Nuñez MD Unavailable [phone] Damion Nuñez MD Primary Care Provider [phone] Allergies Active Allergy Reactions Criticality Noted Date Comments Codeine Other 02/04/2017 Pt stated he felt edgy and uptight when he took T3. 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 Family History Relation Name Status Comments Father Mother Social History Tobacco Use Types Packs/Day Years Used Date Smoking Tobacco: Never Smokeless Tobacco: Never Tobacco Cessation:Counseling Given: Not Answered Alcohol Use Standard Drinks/Week Comments Yes 1 (1 standard drink = 0.6 oz pur e alcohol) PHQ-2 Answer Date Recorded Patient Health Questionnaire-2 Score 0 06/22/2024 Sex and Gender Information Value Date Recorded Sex Assigned at Not on file Legal Sex Male 8:23 PM EDT Gender Identity Not on file Sexual Orientation Not on file Last Filed Vital Signs Vital Sign Reading Time Taken Comments Blood Pressure 128/70 06/22/2024 11:29 AM EST Pulse 70 06/22/2024 11:29 AM EST Temperature - - Respiratory Rate - - Oxygen Saturation 95% 06/22/2024 11:29 AM EST Inhaled Oxygen Concentration - - Weight 68 kg (150 lb) 06/22/2024 11:29 AM EST Height 170.2 cm (5' 7 ) 06/22/2024 11:29 AM EST Body Mass Index 23.49 06/22/2024 11:29 AM EST Plan of Treatment Upcoming Encounters Date Type Department Care Team (Late st Contact Info) Description 12/04/2025 10:30 AM EDT Office Visit [facility] [place] [facility] [address] [facility] [address] [place] [phone] Damion Nuñez MD [address] [facility] [address] [place] [address] Health Maintenance Due Date Last Done Comments Influenza Vaccine (#1) 2025 Medicare Annual Wellness (AWV) 06/22/2025 06/22/2024, 12/16/2023, 12/10/2022 Pneumococcal Vaccine: 65+ Years (1 of 2 - PCV) 06/22/2025 Postponed from 09/01 (Patient Refused) Insurance [employer] Care Teams Clothes Separator Relationship Specialty Start Date End Date Damion Nuñez MD [address] [facility] [address] [place] [address] PCP - [place] VINAYAK 06/01/21 Damion Nuñez MD [address] [facility] [address] [place], [place] [phone] PCP - General Internal Medicine 12/10/22
--- OUTSIDE RECORDS SUMMARY | 2025-02-08 11:28 | XMS_ITS | Encounter Summary ---
Author Organization [facility] Address [address] [place] [address] Care Team Providers Care Geographic Information System Surveyor Name Role Phone Damion Nuñez MD Unavailable [phone] Damion Nuñez MD Primary Care Provider [phone] Encounter Details Date Type Department Care Team (Late st Contact Info) Description 06/21/2024 Abstract [facility] [place] [facility] [address] [place] [address] [place] [phone] Damion Nuñez MD [address] [facility] [address] [place] [address] Social History Tobacco Use Types Packs/Day Years [...] on file documented as of this encounter Functional Status * Over the past 2 weeks, how often have you been bothered by any of the following problems? Question Answer Date of Assessment Author Little interest or pleasure in doing things Not at all 06/22/2024 11:00 AM Holli Rasmussen L PN Feeling down, depressed, or hopeless Not at all 06/22/2024 11:00 AM Holli Rasmussen L PN Patient Health Questionnaire -2 Score 0 06/22/2024 11:00 AM Holli Rasmussen L PN documented as of this encounter Plan of Treatment Upcoming Encounters Date Type Department Care Team (Late st Contact Info) Description 12/04/2025 10:30 AM EDT Office Visit [facility] [place] [address] [facility] [address] [place] [address] Damion Nuñez MD [address] [place] [address] [place] [address] documented as of this encounter Visit Diagnoses Not on filedocumented in this encounter Care Teams Geographic Information System Surveyor Relationship Specialty Start Date End Date Damion Nuñez MD [address] [facility] [address] [place] [address] PCP - Emilio LICEA 06/01/21 Damino Nuñez MD [address] [facility] [address] [place] [address] PCP - General Internal Medicine 12/10/22 documented as of this encounter
--- OUTSIDE RECORDS SUMMARY | 2025-02-08 11:28 | XMS_ITS | Encounter Summary ---
Author Organization [facility] Address [address] [place] [address] Care Team Providers Care Fiscal Analyst Name Role Phone Damion Nuñez MD Unavailable [phone] Damion Nuñez MD Primary Care Provider [phone] Encounter Details Date Type Department Care Team (Late st Contact Info) Description 06/22/2024 Abstract [facility] [place] [facility] [address] [place] [address] [place] [phone] Damion Nuñez MD [address] [facility] [address] [place] [address] Social History Tobacco Use Types Packs/Day Years [...] Visit [facility] [place] [address] [facility] [address] [place] [address] Damion Nuñez MD [address] [facility] [address] [place] [address] documented as of this encounter Visit Diagnoses Not on filedocumented in this encounter Care Teams Fiscal Analyst Relationship Specialty Start Date End Date Damion Nuñez MD [address] [facility] [address] [place] [address] PCP - Emilio LICEA 06/01/21 Damion Nuñez MD [address] [facility] [address] [place] [address] PCP - General Internal Medicine 12/10/22 documented as of this encounter
--- OUTSIDE RECORDS SUMMARY | 2025-02-08 11:28 | XMS_ITS | Clinical Summary ---
Author Organization [employer] Address [id number] [address] [place] [address] Care Team Providers Care Fabric Sourcer Name Role Phone Damion Nuñez MD Primary Care Provider [phone] Allergies Active Allergy Reactions Criticality Noted Date Comments Codeine Other (See Comments) 02/04/2017 Pt stated he felt edgy and uptight when he took T3. Methylprednisolone Swelling 01/21/2017 Pain Medicine Anxiety Low 01/21/2017 Pt does not know the name of the medicine. Medications albuterol (PROVENTIL HFA;VENTOLIN HFA) 90 mcg/actuation inhalerIndicat ions:Chronic obstructive pulmonary disease, unspecified COPD type ([facility]) Inhale 2 puffs every 6 (six) hours as needed for wheezing. 18 g 11 05/16/20 24 Active diphenhydrAMIN E (BENADRYL) 25 mg capsule Take 1 capsule (25 mg total) by mouth nightly as needed for itching. Active APPLE CIDER VINEGAR ORAL Take 3 capsules by mouth in the morning. Active NON FORMULARY Take 12 each by mouth in the morning. Med Name: sun chlorello. Active NON FORMULARY Take 1 each by mouth in the morning. Med Name: immuno 150. Active moxifloxacin HCl (MOXIFLOXACIN 0.5%-PREDNISOL ONE 1%-BROMFENAC 0.09% DROPS - BUDERER ) Administer 1 drop to the right eye in the morning for 14 days. One drop twice a day to operative eye for one week, then daily for three weeks. 01/27/20 25 025 Active moxifloxacin HCl (MOXIFLOXACIN 0.5%-PREDNISOL ONE 1%-BROMFENAC 0.09% DROPS - BUDERER ) Administer 1 drop into the left eye in the morning and 1 drop before bedtime. Do all this for 30 days. One drop twice a day to operative eye for one week, then daily for three weeks. 01/27/20 25 025 Active tiotropium-olo dateroL (STIOLTO RESPIMAT) 2.5-2.5 mcg/actuation mistIndication s:Chronic obstructive pulmonary disease, unspecified COPD type ([facility]) Inhale 2 Inhalations in the morning. 12 g 11 05/16/20 24 025 Discontinued(T herapy completed) moxifloxacin HCl (MOXIFLOXACIN 0.5%-PREDNISOL ONE 1%-BROMFENAC 0.09% DROPS - BUDERER ) Administer 1 drop to the right eye in the morning and 1 drop before bedtime. Do all this for 30 days. One drop twice a day to operative eye for one week, then daily for three weeks. 01/13/20 025 Discontinued Active Problems Problem Noted Date Diagnosed Date Acute respiratory failure with hypoxia Other emphysema 04/08/2024 Closed fracture of right tib ia and fibula, initial encounter 04/06/2024 Calculus of upper urinary tract 01/22/2021 Overview (01/22/2021): Added automatically from request for surgery [id number] Renal insufficiency 02/17/2018 Overview (01/20/2022): ==== 01/20/2022 ==== most recent creatinine and GFR were normal. Basically 1st baseline creatinine 1.32. Patient really has not had primary medical care for years prior. Patient contact Dr. Nuñez is office. Copy of creatinine given the patient Prostate cancer 12/08/2016 Overview (01/20/2022): ==== 01/20/2022 ==== PSA -2020 6.9.----8.23. September 2021. ==== 07/15/2021 ==== I [...] Previous PSA 6.98. 65 cc prostate #### -2016 2 areas G 3+3=6 5%. NCCN Very [...] than prior. Therefore CT scan to confirm. Resolved Problems Problem Noted Date Diagnosed Date Resolved Date Urinary urgency 11/25/2016 02/17/2018 Overview (11/25/2016): +++++++++ 11/25/2016 ALLSCRIPTS SUMMARY +++++++++++ Had urgency frequency but these symptoms resolved after stone passage. Encounters Date Type Department Care Team Description 01/26/2025 12:45 PM EDT - 01/26/2025 1:30 PM EDT Surgery [facility] - Surgery [address] [place] [address] Danette Santa MD EXTRACTION CATARACT INTRAOCULAR LENS [59658 (CPT )] 01/26/2025 11:51 AM EDT Anesthesia Event [facility] - Surgery [address] [place] [address] Ryan Brown, DO 01/26/2025 10:28 AM EDT - 01/26/2025 12:39 PM EDT Hospital Encounter [facility] - Surgery [address] [place] [address] Danette Santa MD Discharge Disposition: Home 01/26/2025 Travel 01/12/2025 12:45 PM EDT - 01/12/2025 1:30 PM EDT Surgery [facility] - Surgery [address] [place] [address] Danette Santa MD EXTRACTION CATARACT INTRAOCULAR LENS [[id number] (CPT )] 01/12/2025 12:02 PM EDT Anesthesia Event [facility] - Surgery [address] [place] [address] Grant Quiñones MD Reynolds, Vern D, DO 01/12/2025 10:33 AM EDT - 01/12/2025 1:02 PM EDT Hospital Encounter [facility] - Surgery [address] [place] [address] Danette Santa MD Discharge Disposition: Home 01/12/2025 Travel 12/22/2024 10:31 AM EDT - 12/22/2024 11:59 PM EDT Hospital Encounter [facility] - Cardiovascular [address] [place] [address] Grant Quiñones MD Preop examination; Other emphysema ([facility]) Discharge Disposition: Home 12/22/2024 10:30 AM EDT Procedure visit [facility] - Pre Admit [address] [place] [address] Preop examination (Primary Dx); Other emphysema ([facility]) 12/22/2024 Travel from Last 3 Months Family History Relation Name Status Comments Father Mother Social History Tobacco Use Types Packs/Day Years Used Date Smoking Tobacco: Former Cigarettes Q uit: 01/12/2002 Smokeless Tobacco: Never Tobacco Cessation:Counseling Given: Not Answered Comments:quit 20 years ago. Alcohol Use Standard Drinks/Week Comments Yes 0 (1 standard drink = 0.6 oz pur e alcohol) occasional [facility] Utilities Answer Date Recorded In the past [...] often do you attend chur ch or tenriism services? Never 04/06/2024 Do you belong to any clubs o r organizations such as amish groups, unions, fraternal or athletic groups, or [...] Answer Date Recorded Total Score 0 04/06/2024 [facility] of Occupat ional Health - Occupational Stress [...] Recorded Do you need help finding a [employer] [facility] me center and/or a training program? No 04/06/2024 [...] Orientation Straight 04/06/2024 6: 11 PM EST Last Filed Vital Signs Vital Sign Reading [...] Mass Index 21.61 01/26/2025 11:00 AM EDT Plan of Treatment Health Maintenance Due Date Last Done Comments DTaP,Tdap and Td Vaccines (1 - Tdap) 1960 Zoster (Shingles) Vaccine (1 of 2) 1960 Fall Risk Screening 2006 Influenza Vaccine 01/30/2025 Depression Screening 04/06/2025 04/06/2024 Tobacco Screening 01/26/2026 01/26/2025 Abdominal Aortic Aneurysm (A AA) Screen Completed 01/06/2022, 06/11/2021, 04/09/2021 Goals Goal Patient Goal Type Associated Problems Recent Progress Patient-Stated? Author Home with OP therapy General Yes Jeanette Orozco RN Note: Evaluation of progress towards goal: Patient plans to return home with OP therapy. Medical Devices Implanted Type Area Auxiliary Engineer Device Identifier Shelf Expiration Date Model / Serial / Lot Clareon Vivity Toric Iol Implanted:Qty: 1 on 01/12/2025 by Danette Santa MD at [facility] Lens [employer] 03/10/2027 CCWET4 / [id number] / Clareon Vivity Toric Uv Iol Implanted:Qty: 1 on 01/26/2025 by Danette Santa MD at [facility] Lens Left: Eye [employer] 06/30/2027 CCWET4 / [id number] / NA Nail Im 345mm 12mm Mr Conditional Tn Adv Ti Al Vndm Pk Adlt - Sna - [id number] Implanted:Qty: 1 on 04/07/2024 by Bradford Meredith MD at [facility] Nail Right: Tibia DEPffk environment 03/31/2032 04.043.435 S / NA / [id number] Screw Bn 40mm 5mm Lck X25 Strl Im Nl - Sna - [id number] Implanted:Qty: 1 on 04/07/2024 by Bradford Meredith MD at [facility] Screw Right: Tibia DEPUY [employer] 08/29/2033 04.045.040 S / NA / [id number] Screw Bn 36mm 5mm Lck X25 Im Nl - Sna - [id number] Implanted:Qty: 1 on 04/07/2024 by Bardford Meredith MD at [facility] Screw Right: Tibia DEPUY [employer]ES [employer] 08/29/2033 04.045.036 S / NA / [id number] Screw Bn 34mm 5mm Lck Strl Im Nl - Sna - [id number] Implanted:Qty: 1 on 04/07/2024 by Bradford Meredith MD at [facility] Screw Right: Tibia [employer] 01/29/2034 04.045.034 S / NA / [id number] Screw Bn 44mm 5mm Lck X25 Im Nl - Sna - [id number] Implanted:Qty: 1 on 04/07/2024 by Bradford Meredith MD at [facility] Screw Right: Tibia [employer] 11/28/2032 04.045.044 S / NA / [id number] Screw Bn 34mm 5mm Lck Strl Im Nl - Sna - [id number] Implanted:Qty: 1 on 04/07/2024 by Bradford Meredith MD at [facility] Screw Right: Tibia DEPUY [employer] 11/28/2033 04.045.034 S / NA / [id number] Screw Bn 38mm 4mm 5mm 1.35mm Cnn St Slf Drl Sm Hex Sckt Ss . - Sna - [id number] Implanted:Qty: 1 on 04/07/2024 by Bradford Meredith MD at [facility] Screw Right: Tibia DEPUY [employer] SALES 207.738 / NA / NA Stent Percuflex 6x28 - [id number] Implanted:Qty: 1 on 02/04/2017 by Yvon Tello MD at [facility] Stent Right: Ureter [employer] 06/04/2019 [id number] / NA / [id number] Explanted Type Area Auxiliary Engineer Device Identifier Shelf Expiration Date Model / Serial / Lot Stent Uret 6fr 28cm Pgtl Crv Tpr Tip Bldr Mrk Lp Lg Inr Lum Rpl [id number] 5793 Phs Ias [place] [id number] - Sna - [id number] Implanted:Qty: 1 on 03/25/2021 by Yvon Tello MD at [facility] Explanted:Qty: 1 on 04/08/2021 by Yvon Tello MD at [facility] Stent Left: Ureter [employer] 09/06/2023 [id number] / NA / [id number] Procedures Procedure Name Priority Date/Time Associated Diagnosis Comments CO REMV CATARACT EXTRACAP,INSERT LENS 01/26/2025 11:52 AM EDT cataract left eye CO REMV CATARACT EXTRACAP,INSERT LENS 01/12/2025 12:02 PM EDT cataract right eye ECG 12-LEAD Routine 12/22/2024 10:35 AM EDT Preop examination Other emphysema (CMS-HCC) US RETROPERITONEAL COMPLETE Routine 01/06/2022 1:03 PM EDT Nephrolithiasis from Last 3 Months or Most Recently Relevant to Health Maintenance Results * ECG 12 lead (12/22/2024 10:35 AM EDT) 12/22/2024 10:3 5 AM EDT Narrative TRACEMASTERVUE - 12/22/2024 6:08 PM EDT Grant Quiñones MD ECG ORDERABLES Final Result TRACEMASTERVUE * Ultrasound retroperitoneal complete (01/06/2022 1:03 PM EDT) Anatomical Region Laterality Modality Pelvis, Body Ultrasound 01/06/2022 2:53 PM EDT Narrative 01/06/2022 2:56 PM EDT History: Kidney stones Exam/Technique: Multiple sonographic images of both kidneys were obtained. Comparison: 06/11/2021 Findings: The kidneys normal in size with right measuring 10.5 x 4.9 x 6.0 cm and left measuring 10.9 x 3.9 x 4.9 cm. Mild pelvocaliectasis of the left kidney is again seen and is unchanged. No right-sided hydronephrosis is seen. No shadowing calculi or solid renal masses were seen either kidney. Stable right renal cysts are unchanged requiring no further evaluation. Urinary bladder was sent to a volume of 204.25 mL. No mucosal abnormalities are seen. Ureteral jets are visualized bilaterally. Prostate gland is enlarged measuring 5.8 x 4.9 x 4.5 centers. IMPRESSION: 1. Stable left pelvocaliectasis. 2. Otherwise normal renal and urinary bladder ultrasound. Finalized by Grant Gold MD on 01/06/2022 2:56 PM Procedure Note Grant Gold MD - 01/06/2022 History: Kidney stones Exam/Technique: Multiple sonographic images of both kidneys wereobtained. Comparison: 06/11/2021 Findings: The kidneys normal in size with right measuring 10.5 x 4.9 x6.0 cm and left measuring 10.9 x 3.9 x 4.9 cm. Mild pelvocaliectasis of the left kidney is again seen and is unchanged.No right-sided hydronephrosis is seen. No shadowing calculi or solid renal masses were seen either kidney. Stable right renal cysts are unchanged requiring no further evaluation. Urinary bladder was sent to a volume of 204.25 mL. No mucosalabnormalities are seen. Ureteral jets are visualized bilaterally. Prostate gland is enlarged measuring 5.8 x 4.9 x 4.5 centers. IMPRESSION: 1. Stable left pelvocaliectasis. 2. Otherwise normal renal and urinary bladder ultrasound. Finalized by Grant Gold MD on 01/06/2022 2:56 PM Yvon Tello MD [facility] ORDERABLES Final Resu lt from Last 3 Months or Most Recently Relevant to Health Maintenance Insurance [address] [place] [address] [employer] Member Subscriber Plan / Payer (Ef fective 2017-Present) Name:Raul Shea Relation to Subscriber:Self Name:Raul Shea Payer ID:[id number] (NAIC) Group ID:[id number] Type:Not on file Address: [address] [place] [phone] [facility] MEDIC[facility] Member Subscriber Plan / Payer (Ef fective 2017-Present) Name:Raul Shea Relation to Subscriber:Self Name:Raul Shea Payer ID:[id number] (NAIC) Group ID:[id number] Type:Not on file Address: [facility] [address] [place] [phone] Advance Directives Documents on File Type Date Recorded Patient Respiratory Care Technician Expl anation Durable Power of Table Top Tile Setter 04/18/2024 2:07 PM * Full Code (Latest Code Status on File) Date Activated Date Inactivated Comments 04/06/2024 8:11 PM 04/10/2024 2:11 PM Care Teams Fabric Sourcer Relationship Specialty Start Date End Date Damion Nuñez MD [address] [facility] 110 [place] [address] PCP - General Internal Medicine 02/17/18
--- OUTSIDE RECORDS SUMMARY | 2025-02-08 11:28 | XMS_ITS | Encounter Summary ---
Author Organization [facility] Address [address] [place] [address] Care Team Providers Care Asphalt Tile Floor Layer Name Role Phone Damion Nuñez MD Unavailable [phone] Damion Nuñez MD Primary Care Provider [phone] Thursday, Rochelle GOTTI Unavailable [phone] Encounter Details Date Type Department Care Team (Late st Contact Info) Description 05/02/2024 Abstract [facility] [place] Chen [address] [facility] [address] [place] [address] Damion Nuñez MD [address] [facility] 110 [place] [address] Social History Tobacco Use Types Packs/Day Years [...] Visit [facility] Matthew Chen [address] [facility] [address] [place] [address] Damion Nuñez MD [address] [facility] [address] [place] [address] documented as of this encounter Visit Diagnoses Not on filedocumented in this encounter Care Teams Asphalt Tile Floor Layer Relationship Specialty Start Date End Date Damion Nuñez MD [address] [facility] [address] [place] [address] PCP - Emilio LICEA 06/01/21 Damion Nuñez MD [address] [facility] [address] [place] [address] PCP - General Internal Medicine 12/10/22Thursday, SHEN Byrd [address] [place] [address] Licensed Practical Nurse Family Medicine 05/06/24 05/12/24 documented as of this encounter
--- OUTSIDE RECORDS SUMMARY | 2025-02-08 11:28 | XMS_ITS | Encounter Summary ---
Author Organization [facility] Address [address] [place] [address] Care Team Providers Care Hydroblaster Name Role Phone Damion Nuñez MD Unavailable [phone] Damion Nuñez MD Primary Care Provider [phone] Encounter Details Date Type Department Care Team (Late Contact Info) Description 05/23/2024 Abstract [facility] [place] [address] [facility] 110 [place] [phone] Damion Nuñez MD [address] [facility] 110 [place] [address] Social History Tobacco Use Types Packs/Day Years [...] Office Visit [facility] [place] Quinnnce [address] [facility] [address] [place] [phone] Damion Nuñez MD 112 [facility] 110 [place] [address] documented as of this encounter Visit Diagnoses Not on filedocumented in this encounter Care Teams Hydroblaster Relationship Specialty Start Date End Date Damion Nuñez MD [address] [facility] 110 [place] [address] PCP - Emilio LICEA 06/01/21 Damion Nuñez MD [address] [facility] [address] [place] [address] PCP - General Internal Medicine 12/10/22 documented as of this encounter
--- OUTSIDE RECORDS SUMMARY | 2025-02-08 11:28 | XMS_ITS | Encounter Summary ---
Author Organization [facility] tem Address [id number] [address] [place] [address] Care Team Providers Care Hr Internship Name Role Phone Damion Nuñez MD Primary Care Provider [phone] Encounter Details Date Type Department Care Team (Latest Contact Info) Description 01/26/2025 Travel Social History Tobacco Use Types Packs/Day Years Used Date Smoking Tobacco: Former Cigarettes Q uit: 01/12/2002 Smokeless Tobacco: Never Comments:quit 20 years ago. Alcohol Use Standard Drinks/Week Comments Yes 0 (1 standard drink = 0.6 oz pur e alcohol) occasional C Utilities Answer Date Recorded In the past 12 months has [employer] electric, gas, oil, or water company threatened [...] any clubs o r organizations such as spiritism groups, unions, fraternal or athletic groups, or [...] Answer Date Recorded Total Score 0 04/06/2024 [facility] of Occupat ional Health - Occupational Stress [...] Recorded Do you need help finding a [facility] career center and/or a training program? No [...] with OP therapy General Yes Jeanette Orozco, RN Note: Evaluation of progress towards goal: Patient plans to return home with OP therapy. documented as of this encounter Visit Diagnoses Not on filedocumented in this encounter Additional Health Concerns Assessment Noted Time PHQ-9 Depression Total Score: 0 04/06/20 24 6:16 PM EST documented as of this encounter Care Teams Hr Internship Relationship Specialty Start Date End Date Damion Nuñez MD [address] [facility] [address] [place] [address] PCP - General Internal Medicine 02/17/18 documented as of this encounter
--- OUTSIDE RECORDS SUMMARY | 2025-02-08 11:28 | XMS_ITS | Encounter Summary ---
Author Organization [facility] Address [address] [place] [address] Care Team Providers Care Computer Engineering Technologist Name Role Phone Damion Nuñez MD Unavailable [phone] Damion Nuñez MD Primary Care Provider [phone] Thursday, Rochelle GOTTI Unavailable [phone] Encounter Details Date Type Department Care Team (Late st Contact Info) Description 04/04/2024 Abstract [facility] Matthew Chen [address] [facility] [address] [place] [address] Damion Nuñez MD [address] [facility] [address] [place] [address] Social History Tobacco Use Types Packs/Day Years [...] Visit [facility] Matthew Chen [address] [facility] [address] [place] [address] Damion Nuñez MD [address] [facility] [address] [place] [address] documented as of this encounter Visit Diagnoses Not on filedocumented in this encounter Care Teams Computer Engineering Technologist Relationship Specialty Start Date End Date Damion Nuñez MD [address] [facility] [address] [place] [address] PCP - Emilio LICEA 06/01/21 Damion Nuñez MD [address] [facility] [address] [place] [address] PCP - General Internal Medicine 12/10/22Thursday, SHEN Byrd [address] [place] [address] Licensed Practical Nurse Family Medicine 05/06/24 05/12/24 documented as of this encounter
--- OUTSIDE RECORDS SUMMARY | 2025-02-08 11:29 | XMS_ITS | Encounter Summary ---
Author Organization [facility] Address [address] [place] [address] Care Team Providers Care Vp Communications Name Role Phone Damion Nuñez MD Unavailable [phone] Damion Nuñez MD Primary Care Provider [phone] Thursday, Rochelle GOTTI Unavailable [phone] Encounter Details Date Type Department Care Team (Late st Contact Info) Description 12/17/2023 Abstract [facility] Matthew Chen [address] [facility] [address] [place] [address] Damion Nuñez MD [address] [facility] [address] [place] [address] Social History Tobacco Use Types Packs/Day Years [...] Visit [facility] Matthew Chen [address] [facility] [address] [place] [address] Damion Nuñez MD [address] [facility] [address] [place] [address] documented as of this encounter Visit Diagnoses Not on filedocumented in this encounter Care Teams Vp Communications Relationship Specialty Start Date End Date Damion Nñuez MD [address] [facility] [address] [place] [address] PCP - Emilio LICEA 06/01/21 Damion Nuñez MD [address] [facility] [address] [place] [address] PCP - General Internal Medicine 12/10/22Thursday, SHEN Byrd [address] [place] [address] Licensed Practical Nurse Family Medicine 05/06/24 05/12/24 documented as of this encounter
--- OUTSIDE RECORDS SUMMARY | 2025-02-08 11:29 | XMS_ITS | Encounter Summary ---
Author Organization [facility] Address [address] [place] [address] Care Team Providers Care Rn Shift Mgr Name Role Phone Damion Nuñez MD Unavailable [phone] Damion Nuñez MD Primary Care Provider [phone] Thursday, Rochelle GOTTI Unavailable [phone] Encounter Details Date Type Department Care Team (Late st Contact Info) Description 12/10/2022 Abstract [facility] [place] [facility] [address] [facility] 110 [place] [address] Damion Nuñez MD [address] [facility] 110 [place] [address] Social History Tobacco Use Types Packs/Day Years Used Date Smoking Tobacco: Never Smokeless Tobacco: Never Tobacco Cessation:Counseling Given: Not Answered Alcohol Use Standard Drinks/Week Comments Yes 1 (1 standard drink = 0.6 oz pur e alcohol) PHQ-2 Answer Date Recorded Patient Health Questionnaire-2 Score 0 12/10/2022 Sex and Gender Information Value Date Recorded [...] pleasure in doing things Not at all 12/10/2022 12:00 PM EDT Holli Noe L PN Feeling down, depressed, or hopeless Not at all 12/10/2022 12:00 PM EDT Holli Noe L PN Patient Health Questionnaire -2 Score 0 12/10/2022 12:00 PM EDT Holli Noe L PN documented as of this encounter Plan of Treatment Upcoming Encounters Date Type Department Care Team (Late st Contact Info) Description 12/04/2025 10:30 AM EDT Office Visit [facility] [place] [address] [place] [address] [place] [address] Damion Nuñez MD [address] [facility] [address] [place] [address] documented as of this encounter Visit Diagnoses Not on filedocumented in this encounter Care Teams Rn Shift Mgr Relationship Specialty Start Date End Date Damion Nuñez MD [address] [facility] [address] [place] [address] PCP - Emilio LICEA 06/01/21 Damion Nuñez MD [address] [facility] [address] [place] [address] PCP - General Internal Medicine 12/10/22Thursday, SHEN Byrd [address] [place] [address] Licensed Practical Nurse Family Medicine 05/06/24 05/12/24 documented as of this encounter
--- OUTSIDE RECORDS SUMMARY | 2025-02-08 11:29 | XMS_ITS | Encounter Summary ---
Author Organization [facility] Address [address] [place] [address] Care Team Providers Care Heart Surgeon Name Role Phone Damion Nuñez MD Unavailable [phone] Damion Nuñez MD Primary Care Provider [phone] Thursday, Rochelle GOTTI Unavailable [phone] Encounter Details Date Type Department Care Team (Late st Contact Info) Description 12/23/2022 Abstract [facility] Matthew Chen [address] [facility] 110 [place] [address] Damion Nuñez MD [address] [facility] 110 [place] [address] Social History Tobacco Use Types Packs/Day Years [...] Visit [facility] Matthew Chen [address] [facility] [address] [place] [address] Damion Nuñez MD [address] [facility] 110 [place] [address] documented as of this encounter Visit Diagnoses Not on filedocumented in this encounter Care Teams Heart Surgeon Relationship Specialty Start Date End Date Damion Nuñez MD [address] [facility] [address] [place] [address] PCP - Emilio LICEA 06/01/21 Damion Nuñez MD [address] [facility] [address] [place] [address] PCP - General Internal Medicine 12/10/22Thursday, SHEN Byrd [address] [place] [address] Licensed Practical Nurse Family Medicine 05/06/24 05/12/24 documented as of this encounter
--- OUTSIDE RECORDS SUMMARY | 2025-02-08 11:30 | XMS_ITS | CCD ---
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 fibular and distal tibial fractures. Finalized by Tommy Fraser MD on 04/06/2024 12:36 PM Normal [facility] RESPIRATORY PANEL PLUSon Adenovirus Not detected Normal NOT DETECTED [facility] Comment on above: Performed By: #### R SPLUS #### [facility] [address] [place] [address] Dr. Shawnee Giles Parapertusis Not detected Normal NOT DETECTED [facility] Comment on above: Performed By: #### R SPLUS #### [facility] [address] [place] [address] Dr. Shawnee Giles Pertussis Not detected Normal NOT DETECTED [facility] Comment on above: Performed By: #### R SPLUS #### [facility] [address] [place] [address] Dr. Shawnee Bain Chlamydia Pneumoniae Not detected Normal NOT DETECTED [facility] Comment on above: Performed By: #### R SPLUS #### [facility] [address] [place] [address] Dr. Shawnee Bain Coronavirus 229E Not detected Normal NOT DETECTED [facility] Comment on above: Performed By: #### R SPLUS #### [facility] [address] [place] [address] Dr. Shawnee Bain Coronavirus HKU1 Not detected Normal NOT DETECTED [facility] Comment on above: Performed By: #### R SPLUS #### [facility] [address] [place] [address] Dr. Shawnee Bain Coronavirus NL63 Not detected Normal NOT DETECTED [facility] Comment on above: Performed By: #### R SPLUS #### [facility] [address] [place] [address] Dr. Shawnee Bain Coronavirus OC43 Not detected Normal NOT DETECTED [facility] Comment on above: Performed By: #### R SPLUS #### [facility] [address] [place] [address] Dr. Shawnee Bain Influenza A H1 2009 Not detected Normal NOT DETECTED [facility] Comment on above: Performed By: #### R SPLUS #### [facility] [address] [place] [address] Dr. Shawnee Bain Influenza A H3 Not detected Normal NOT DETECTED [facility] Comment on above: Performed By: #### R SPLUS #### [facility] [address] [place] [address] Dr. Shawnee Bain Influenza B Not detected Normal NOT DETECTED [facility] Comment on above: Performed By: #### R SPLUS #### [facility] [address] [place] [address] Dr. Shawnee Bain Metapneumovirus Not detected Normal NOT DETECTED [facility] Comment on above: Performed By: #### R SPLUS #### [facility] [address] [place] [address] Dr. Shawnee Bain Mycoplas. Pneumoniae Not detected Normal NOT DETECTED [facility] Comment on above: Performed By: #### R SPLUS #### [facility] [address] [place] [address] Dr. Shawnee Bain Parainfluenza 1 Not detected Normal NOT DETECTED [facility] Comment on above: Performed By: #### R SPLUS #### [facility] [address] [place] [address] Dr. Shawnee Bain Parainfluenza 2 Not detected Normal NOT DETECTED [facility] Comment on above: Performed By: #### R SPLUS #### [facility] [address] [place] [address] Dr. Shawnee Bain Parainfluenza 3 Not detected Normal NOT DETECTED [facility] Comment on above: Performed By: #### R SPLUS #### [facility] [address] [place] [address] Dr. Shawnee Bain Parainfluenza 4 Not detected Normal NOT DETECTED [facility] Comment on above: Performed By: #### R SPLUS #### [facility] [address] [place] [address] Dr. Shawnee Bain Rhino/Enterovirus Not detected Normal NOT DETECTED [facility] Comment on above: Performed By: #### R SPLUS #### [facility] [address] [place] [address] Dr. Shawnee Bain RP2 Header 1 RESPIRATORY PANEL: VIRUSES Normal [facility] Comment on above: Performed By: #### R SPLUS #### [facility] [address] [place] [address] Dr. Shawnee Bain RP2 Header 2 RESPIRATORY PANEL: BACTERIA Normal [facility] Comment on above: Performed By: #### R SPLUS #### [facility] [address] [place] [address] Dr. Shawnee Bain RSV Not detected Normal NOT DETECTED [facility] Comment on above: Performed By: #### R SPLUS #### [facility] [address] [place] [address] Dr. Shawnee Bain SARS-CoV-2 (COVID-19) RNA ELENA+probe Ql (Unsp spec) Detected Critically abnormal NOT DETECTED [facility] Comment on above: Performed By: #### R SPLUS #### [facility] [address] [place] [address] Dr. Shawnee Bain Complete Blood Counton 10-07 Erythrocyte distribution width (RBC) [Ratio] 13.4 % Normal 11.0-15.0 [facility] Comment on above: Performed By: #### L IPD, CBC, CMP #### [facility] [address], [place] [id number] Hematocrit (Bld) [Volume fraction] 48.4 % Normal 38.5-50.0 [facility] Comment on above: Performed By: #### L IPD, CBC, CMP #### [facility] [address], [place] [id number] Hemoglobin (Bld) [Mass/Vol] 16.0 g/dL Normal 13.0-17.1 [facility] Comment on above: Performed By: #### L IPD, CBC, CMP #### [facility] [address], [place] [id number] MCH (RBC) [Entitic mass] 30.9 pg Normal 27.0-33.0 [facility] Comment on above: Performed By: #### L IPD, CBC, CMP #### [facility] [address], [place] [id number] MCHC (RBC) [Mass/Vol] 33.1 g/dL Normal 32.0-36.0 [facility] Comment on above: Performed By: #### L IPD, CBC, CMP #### [facility] [address], [place] [id number] MCV (RBC) [Entitic vol] 94 fL Normal 80-100 [facility] Comment on above: Performed By: #### L IPD, CBC, CMP #### [facility] [address], [place] [id number] Platelet mean volume (Bld) [Entitic vol] 9.90 fL Normal 7.50-12.50 [facility] Comment on above: Performed By: #### L IPD, CBC, CMP #### [facility] [address], [place] [id number] Platelets (Bld) [#/Vol] 302 10*3/uL Normal 140-400 [facility] Comment on above: Performed By: #### L IPD, CBC, CMP #### [facility] [address], [place] [id number] RBC (Bld) [#/Vol] 5.17 10*6/uL Normal 4.20-5.80 [facility] Comment on above: Performed By: #### L IPD, CBC, CMP #### [facility] [address], [place] [id number] RDW-SD 46.3 fL Normal 37.0-50.0 [facility] Comment on above: Performed By: #### L IPD, CBC, CMP #### [facility] [address], [place] [id number] WBC (Bld) [#/Vol] 6.6 10*3/uL Normal 3.8-11.0 [facility] Comment on above: Performed By: #### L IPD, CBC, CMP #### [facility] [address], [place] [id number] Comprehensive Metabolic Pane [place] 10-07-2021 Albumin [Mass/Vol] 4.4 g/dL Normal 3.6-5.1 [facility] Comment on above: Performed By: #### L IPD, CBC, CMP #### [facility] [address], [place] [id number] Albumin/Globulin [Mass ratio] 1.7 {ratio} Normal 1.0-2.5 [facility] Comment on above: Performed By: #### L IPD, CBC, CMP #### [facility] [address], [place] [id number] ALP [Catalytic activity/Vol] 106 U/L Normal 40-129 [facility] Comment on above: Performed By: #### L IPD, CBC, CMP #### [facility] [address], [place] [id number] ALT [Catalytic activity/Vol] 14 U/L Normal 9-46 [facility] Comment on above: Result Comment: 05/01 Female reference range changed. Performed By: #### L IPD, CBC, CMP #### [facility] [address], [place] [id number] Anion gap [Moles/Vol] 18 mmol/L Normal 12-20 [facility] Comment on above: Result Comment: Effe ctive 06/06/2019 reference range changed. Performed By: #### L IPD, CBC, CMP #### [facility] [address], [place] [id number] AST [Catalytic activity/Vol] 22 U/L Normal 10-40 [facility] Comment on above: Performed By: #### L IPD, CBC, CMP #### [facility] [address], [place] [id number] Bilirubin [Mass/Vol] 0.46 mg/dL Normal 0.30-1.20 [facility] Comment on above: Performed By: #### L IPD, CBC, CMP #### [facility] [address], [place] [id number] BUN/CREA 22 Ratio Normal 6-22 [facility] Comment on above: Performed By: #### L IPD, CBC, CMP #### [facility] [address], [place] [id number] Calcium [Mass/Vol] 9.6 mg/dL Normal 8.6-10.2 [facility] Comment on above: Performed By: #### L IPD, CBC, CMP #### [facility] [address], [place] [id number] Chloride [Moles/Vol] 107 mmol/L Normal 98-107 [facility] Comment on above: Performed By: #### L IPD, CBC, CMP #### [facility] [address], [place] [id number] CO2 [Moles/Vol] 24 mmol/L Normal 20-31 [facility] Comment on above: Performed By: #### L IPD, CBC, CMP #### [facility] [address], [place] [id number] Creatinine [Mass/Vol] 1.2 mg/dL Normal 0.7-1.4 [facility] Comment on above: Performed By: #### L IPD, CBC, CMP #### [facility] [address], [place] [id number] eGFRAA 73 mL/min/1.73m2 Normal >60 [facility] Comment on above: Performed By: #### L IPD, CBC, CMP #### [facility] [address], [place] [id number] eGFRNAA 60 mL/min/1.73m2 Low >60 [facility] Comment on above: Performed By: #### L IPD, CBC, CMP #### [facility] [address], [place] [id number] Globulin (S) [Mass/Vol] 2.6 g/dL Normal 1.9-3.7 [facility] Comment on above: Performed By: #### L IPD, CBC, CMP #### [facility] [address], [place] [id number] Glucose [Mass/Vol] 97 mg/dL Normal 65-99 [facility] Comment on above: Result Comment: For FASTING Glucose --- ADA reference ranges: Normal 65-99 mg/dl Prediabetes 100-125 Diabetes >/= 126 Performed By: #### L IPD, CBC, CMP #### [facility] [address], [place] [id number] Potassium [Moles/Vol] 4.5 mmol/L Normal 3.5-5.5 [facility] Comment on above: Performed By: #### L IPD, CBC, CMP #### [facility] [address], [place] [id number] Protein [Mass/Vol] 7.0 g/dL Normal 6.1-8.1 [employer] [place] [employer] Comment on above: Performed By: #### L IPD, CBC, CMP #### [facility] [address], [place] [id number] Sodium [Moles/Vol] 144 mmol/L Normal 135-146 [employer] [place] [employer] Comment on above: Performed By: #### L IPD, CBC, CMP #### [facility] [address], [place] [id number] Urea nitrogen [Mass/Vol] 26 mg/dL High 7-25 [facility] Comment on above: Performed By: #### L IPD, CBC, CMP #### [facility] [address], [place] [id number] Lipid Panelon 10-07-2021 Cholesterol [Mass/Vol] 224 mg/dL High 125-200 [facility] Comment on above: Result Comment: Low risk < 200mg/dL Borderline risk 201-239 mg/dl High risk > or equal to 240 Performed By: #### L IPD, CBC, CMP #### [facility] [address], [place] [id number] Cholesterol in HDL [Mass/Vol] 55 mg/dL Normal >40 [facility] Comment on above: Result Comment: High Cardiovascular Risk HDL <40 mg/dL Low Cardiovascular Risk HDL > or equal to 60 mg/dl Performed By: #### L IPD, CBC, CMP #### [facility] [address], [place] [id number] Cholesterol in LDL [Mass/Vol] 152 mg/dL Normal [facility] Comment on above: Result Comment: LDL ATP III CLASSIFICATION LDL less than 100 mg/dl Optimal LDL 100-129 mg/dl Near or above optimal LDL 130-159 Borderline high LDL 160-189 High LDL greater than 189 mg/dl Very High Performed By: #### L IPD, CBC, CMP #### [facility] [address], [place] [id number] Cholesterol in VLDL [Mass/Vol] 17 mg/dL Normal [facility] Comment on above: Performed By: #### L IPD, CBC, CMP #### [facility] [address], [place] [id number] Cholesterol.total/ Cholesterol in HDL [Mass ratio] 4 {ratio} Normal [facility] Comment on above: Performed By: #### L IPD, CBC, CMP #### [facility] [address], [place] [id number] Triglyceride [Mass/Vol] 83 mg/dL Normal 30-150 [facility] Comment on above: Result Comment: TRIG ATPIII CLASSIFICATIONS TRIG less than 150 mg/dl Normal TRIG 150-199 mg/dl Borderline High TRIG 200-500 mg/dl High TRIG greather than 500 mg/dl Very High Performed By: #### L IPD, CBC, CMP #### [facility] [address], [place] [id number] Prostatic Specific Antigen, Totalon 10-07-2021 TPSA 8.530 ng/mL High <4.000 [facility] Comment on above: Result Comment: PSA Test Method: ECLIA/Barron e 601 Performed By: #### P SA #### [facility] [address], [place] [id number] CBC W MANUAL DIFFon 12-22-19 21 ATYPICAL LYMPH # Normal [facility] Comment on above: Performed By: #### C SHERIF #### [facility] [address] [place] [id number] Bri Dali ATYPICAL LYMPH % Normal [facility] Comment on above: Performed By: #### C SHERIF #### [facility] [address] [place], [place] [id number] Bri Dali BAND # 0.1 103/ul Normal 0.0-0.3 [facility] Comment on above: Performed By: #### C SHERIF #### [facility] [address] [place] [address] Bri Dali BAND % 1 % Normal 0-5 [facility] Comment on above: Performed By: #### C SHERIF #### [facility] [address] [place], [place] [id number] Bri Dali BASOM # 0.00 103/ul Normal 0.00-0.10 [facility] Comment on above: Performed By: #### C SHERIF #### [facility] [address] [place], [place] [address] Bri Dali BASOM % 0.0 % Critically low 0.2-2.[address] [facility] Comment on above: Performed By: #### C SHERIF #### [facility] [address] [place], [place] [id number] Bri Dali BLAST # Normal [facility] Comment on above: Performed By: #### C SHERIF #### [facility] [address] [place], [place] [id number] Bri Dali BLAST % Normal [facility] Comment on above: Performed By: #### C SHERIF #### [facility] [address] [place], [place] [address] Bri Dali CORRECTED WBC Normal 4.0-11.0 [facility] Comment on above: Performed By: #### C SHERIF #### [facility] [address] [place] [address] Bri Dali EOS # 0.11 103/ul Normal 0.00-0.70 [facility] Comment on above: Performed By: #### C SHERIF #### [facility] [address] [place] [address] Bri Dali EOS% 1.0 % Normal 0.9-7.0 [facility] Comment on above: Performed By: #### C SHERIF #### [facility] [address] [place] [address] Bri Dali HCT 46.5 % Normal 42.0-54.0 [facility] Comment on above: Performed By: #### C SHERIF #### [facility] [address] [place] [address] Bri Dali HGB 15.9 g/dl Normal 14.0-18.0 [facility] Comment on above: Performed By: #### C SHERIF #### [facility] [address] [place] [address] Bri Dali LYMPHM # 1.93 103/ul Normal 1.20-3.80 [facility] Comment on above: Performed By: #### C SHERIF #### [facility] [address] [place] [address] Bri Dali LYMPHM% 18.0 % Critically low 20.5-60.[address] [facility] Comment on above: Performed By: #### Perico GORMAN #### [facility] [address] [place], [place] [id number] Bri Dali MCH 31.2 pg Normal 25.9-34.0 [facility] Comment on above: Performed By: #### C SHERIF #### [facility] [address] [place] [address] Bri Dali MCHC 34.2 g/dl Normal 29.9-35.2 [facility] Comment on above: Performed By: #### C SHERIF #### [facility] [address] [place] [address] Bri Dali MCV 91.2 fL Normal 80.0-94.0 [facility] Comment on above: Performed By: #### Perico GORMAN #### [facility] [address] [place] [address] Bri Dali METAMYELOCYTE # Normal [facility] Comment on above: Performed By: #### Perico GORMAN #### [facility] [address] [place] [address] Bri Dali METAMYELOCYTE % Normal [facility] Comment on above: Performed By: #### Perico GORMAN #### [facility] [address] [place] [address] Bri Dali MONOM# 0.64 103/ul Normal 0.30-0.80 [facility] Comment on above: Performed By: #### Perico GORMAN #### [facility] [address] [place] [address] Bri Dali MONOM% 6.0 % Normal 1.7-12.0 [facility] Comment on above: Performed By: #### Perico GORMAN #### [facility] [address] [place], [place] [id number] Bri Dali MPV 9.4 fL Critically low 9.5-13.[address] [facility] Comment on above: Performed By: #### Perico GORMAN #### [facility] [address] [place] [address] Bri Dali MYELOCYTE # Normal [facility] Comment on above: Performed By: #### Perico GORMAN #### [facility] [address] [id number] Bri Dali MYELOCYTE % Normal [facility] Comment on above: Performed By: #### Perico GORMAN #### [facility] [address] [phone] Bri Dali NRBC Normal [facility] Comment on above: Performed By: #### Perico GORMAN #### [facility] [address] [id number] Bri Dali PLT 279 103/ul Normal 150-450 [facility] Comment on above: Performed By: #### C SHERIF #### [facility] [address] [place], [place] [address] Bri Dali RBC 5.10 106/ul Normal 4.70-6.10 [facility] Comment on above: Performed By: #### Perico GORMAN #### [facility] [address] [place] [address] Bri Dali RDW 13.2 % Normal 11.0-15.0 [facility] Comment on above: Performed By: #### Perico GORMAN #### [facility] [address] [place], [place] [id number] Bri Dali SEG # 7.92 103/ul Critically high 1.40-6.50 [facility] Comment on above: Performed By: #### Perico GORMAN #### [facility] [address] [place], [place] [address] Bri Dali SEG % 74.0 % Normal 43.0-75.0 [facility] Comment on above: Performed By: #### C SHERIF #### [facility] [address] [place], [place] [address] Bri Dali WBC 10.7 103/ul Normal 4.0-11.0 [facility] Comment on above: Performed By: #### C SHERIF #### [facility] [address] [place], [place] [address] Bri Dali CT ABD/PELVIS WO CONon 12-21 CT ABD/PELVIS WO CON EXAMINATION: CT ABD/PELVIS WO CON, 12/21/2020 7:09 AM EDT HISTORY: CALCULUS OF KIDNEY , left flank pain COMPARISON: 08/31/2014 TECHNIQUE: CT scan of the abdomen and pelvis was performed without IV contrast. CT dose reduction technique was used, including Automated Exposure Control. FINDINGS: LUNG BASES: Mild centrilobular emphysema. LIVER: Multiple subcentimeter hypodensities too small to characterize possibly cysts BILIARY: No dilatation or calcification. PANCREAS: No lesion, fluid collection, ductal dilatation, or atrophy. SPLEEN: No enlargement or focal lesion. ADRENALS: No mass or enlargement. KIDNEYS: Asymmetric enlargement of the left kidney with moderate perinephric stranding. Moderate left hydroureteronephrosis extending to an obstructing 8.6 x 6.1 mm stone at the left ureteral pelvic junction axial image 52. No right hydronephrosis. Multiple bilateral cortical cystic lesions, grossly stable BOWEL/MESENTERY: Small to moderate hiatal hernia. Nonobstructive bowel gas pattern. AORTA/VASCULAR: No aortic aneurysm. Moderate diffuse atherosclerosis RETROPERITONEUM: No mass or adenopathy. LYMPH NODES: No adenopathy. URINARY BLADDER: No visible focal wall thickening, lesion, or calculus. PELVIC ORGANS: No enlargement of the prostate gland which measures 5.6 cm transversely. Scattered calcifications ABDOMINAL WALL: No mass or hernia. BONES: No bony lesion or fracture. OTHER: Negative. IMPRESSION: 8.6 mm obstructing stone at the left ureteral pelvic junction with moderate associated obstructive uropathy Electronically authenticated by: ZEKE TREVNIO Date: 2020-12-21 07:50 Normal [facility] URINE PROFILEon 1 Bilirubin Ql (U) Negative Normal NEGATIVE [facility] Comment on above: Performed By: #### U MICRO, ERUR #### [facility] [address] [place], [place] [address] Bri Dali Clarity (U) CLEAR Normal CLEAR [facility] Comment on above: Performed By: #### U MICRO, ERUR #### [facility] [address] [place], [place] [address] Bri Dali Color (U) LT. YELLOW Normal YELLOW [facility] Comment on above: Performed By: #### U MICRO, ERUR #### [facility] [address] [address] Bri Dali ERUAHD A micrscopic examina tion will be performed if indicated. Normal [facility] Comment on above: Performed By: #### U MICRO, ERUR #### [facility] [address] [address] Bri Dali Glucose Ql (U) Negative Normal NEGATIVE [facility] Comment on above: Performed By: #### U MICRO, ERUR #### [facility] [address] [address] Bri Dali Hemoglobin Ql (U) SMALL Abnormal NEGATIVE [facility] Comment on above: Performed By: #### U MICRO, ERUR #### [facility] [address] [address] Bri Dali Ketones Ql (U) Negative Normal NEGATIVE [facility] Comment on above: Performed By: #### U MICRO, ERUR #### [facility] [address] [address] Bri Dali LEUKOCYTES Negative Normal NEGATIVE [facility] Comment on above: Performed By: #### U MICRO, ERUR #### [facility] [address] [address] Bri Dali Nitrite Ql (U) Negative Normal NEGATIVE [facility] Comment on above: Performed By: #### U MICRO, ERUR #### [facility] [address] [address] Bri Dali pH (U) 6.0 [pH] Normal 5-9 [facility] Comment on above: Performed By: #### U MICRO, ERUR #### [facility] [address] [address] Bri Dali SPEC GRAVITY 1.020 Normal 1.005-<=1.0 25 [facility] Comment on above: Performed By: #### U MICRO, ERUR #### [facility] [address] [address] Bri Dali UA PROTEIN Negative Normal NEGATIVE/ TRACE [facility] Comment on above: Performed By: #### U MICRO, ERUR #### [facility] [address] [address] Bri Dali UR MICRO IND INDICATED Normal [facility] Comment on above: Performed By: #### U MICRO, ERUR #### [facility] [address] [phone] Bri Dali Urobilinogen Qn (U) 0.2 {Zohreh'U}/dL Normal 0.2 - 1.0 [facility] Comment on above: Performed By: #### U MICRO, ERUR #### [facility] [address] [address] Bri Dali PROF CHEM 8 (BAS METB)on Anion gap [Moles/Vol] 15.0 mmol/L Normal [facility] Comment on above: Performed By: #### B MP #### [facility] [address] [place] [address] Bri Dali Calcium [Mass/Vol] 9.1 mg/dL Normal 8.4-10.2 [facility] Comment on above: Performed By: #### B MP #### [facility] [address] [place] [address] Bri Dali Chloride [Moles/Vol] 101 mmol/L Normal 98-107 [facility] Comment on above: Performed By: #### B MP #### [facility] [address] [place] [address] Bri Dali CO2 [Moles/Vol] 27.0 mmol/L Normal 22.0-30.0 [facility] Comment on above: Performed By: #### B MP #### [facility] [address] [place] [address] Bri Dali Creatinine [Mass/Vol] 1.81 mg/dL Critically high 0.66-1.25 [facility] Comment on above: Performed By: #### B MP #### [facility] [address] [place], [place] [address] Bri Dali EGFR-AF MONTSERRATIAN 44 mL/min/1.73m2 Critically low >=60 [facility] Comment on above: Performed By: #### B MP #### [facility] [address] [phone] Bri Dali EGFR-NON AF MONTSERRATIAN 36 mL/min/1.73m2 Critically low >=60 [facility] Comment on above: Performed By: #### B MP #### [facility] [address] [phone] Bri Dali Glucose [Mass/Vol] 132 mg/dL Critically high 74-106 [facility] Comment on above: Performed By: #### B MP #### [facility] [address] [place], [place] [address] Bri Dali Potassium [Moles/Vol] 4.0 mmol/L Normal 3.4-5.0 [facility] Comment on above: Performed By: #### B MP #### [facility] [address] [place], [place] [address] Bri Dali Sodium [Moles/Vol] 139 mmol/L Normal 137-145 [facility] Comment on above: Performed By: #### B MP #### [facility] [address] [place], [place] [address] Bri Dali Urea nitrogen [Mass/Vol] 20.0 mg/dL Normal 9.0-20.0 [facility] Comment on above: Performed By: #### B MP #### [facility] [address] [place], [place] [address] Bri Dali Urea nitrogen/Creatinin e [Mass ratio] 11.0 mg/mg Normal [facility] Comment on above: Performed By: #### B MP #### [facility] [address] [place], [place] [address] Bri Dali URINE MICROSCOPIC ONLYon BACTERIA TRACE Abnormal NONE SEEN [facility] Comment on above: Performed By: #### U MICRO, ERUR #### [facility] [address] [place], [place] [address] Bri Dali Bacteria identified Cx Nom (U) NOT INDICATED Normal [facility] Comment on above: Performed By: #### U MICRO, ERUR #### [facility] [address] [place], [place] [address] Bri Dali CAST NONE SEEN Normal NONE SEEN [facility] Comment on above: Performed By: #### U MICRO, ERUR #### [facility] [address] [phone] Bri Dali Crystals LM Nom (Urine sed) NONE SEEN Normal NONE SEEN [facility] Comment on above: Performed By: #### U MICRO, ERUR #### [facility] [address] [place], [place] [address] Bri Dali Epithelial cells LM Ql (Urine sed) RARE Normal NONE SEEN /RARE [facility] Comment on above: Performed By: #### U MICRO, ERUR #### [facility] [address] [place], [place] [address] Bri Dali MUCOUS NONE SEEN Normal NONE SEEN [facility] Comment on above: Performed By: #### U MICRO, ERUR #### [facility] [address] [place], [place] [address] Bri Dali RBC 5-10 Abnormal 0-2 [facility] Comment on above: Performed By: #### U MICRO, ERUR #### [facility] [address] [place], [place] [address] Bri Dali WBC 0-2 Abnormal NONE SEEN [facility] Comment on above: Performed By: #### U MICRO, ERUR #### [facility] [address] [place], [place] [address] Bri Dali Vital Signs Date Time Vital Sign Value Performing Clinician Ang alvarado 12-22-2024 10:220400 Body height 170.2 cm Pmh 1 [facility] 12-22-2024 10:22-0400 Body mass index (BMI) [Ratio] 21.46 kg/m2 Pmh 1 [facility] 12-22-2024 10:0400 Body weight 62.14 kg Pmh 1 [facility] 06-22-2024 11:29-0500 Body height 170.2 cm Damion Nuñez MD Work Phone: [facility] 06-22-2024 11:29-0500 Body mass index (BMI) [Ratio] 23.49 kg/m2 Damion Nuñez MD Work Phone: [facility] 06-22-2024 11:29-0500 Body weight 68.04 kg Damion Nuñez MD Work Phone: [facility] 06-22-2024 11:29-0500 Diastolic blood pressure 70 mm[Hg] Damion Nuñez MD Work Phone: [facility] 06-22-2024 11:29-0500 Heart rate 70 /min Damion Nuñez MD Work Phone: [facility] 06-22-2024 11:29-0500 SaO2% (BldA) [Mass fraction] 95 % Damion Nuñez MD Work Phone: [facility] 06-22-2024 11:29-0500 Systolic blood pressure 128 mm[Hg] Damion Nuñez MD Work Phone: [facility] 04-27-2024 11:12-0500 Body height 170.2 cm Damion Nuñez MD Work Phone: [facility] 04-27-2024 11:12-0500 Diastolic blood pressure 76 mm[Hg] Damion Nuñez MD Work Phone: [facility] 04-27-2024 11:12-0500 Heart rate 79 /min Damion Nuñez MD Work Phone: [facility] 04-27-2024 11:12-0500 SaO2% (BldA) [Mass fraction] 92 % Damion Nuñez MD Work Phone: [facility] 04-27-2024 11:12-0500 Systolic blood pressure 130 mm[Hg] Damion Nuñez MD Work Phone: [facility] Healthcare Encounters Encounter Date Encounter Type Care Provider Facility Start: 01-26-2025 End: 01-26-2025 Evaluation and management of inpatient DANETTE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 [address] PCP - Emilio LICEA 06/01/21 Damion Nuñez MD [address] [place] [address] [place] [address] PCP - General Internal Medicine 12/10/22 Day Trader Relationship Specialty Start Date End Date Damion Nuñez MD [address] [facility] [address] [place] [address] PCP - Emilio LICEA 06/01/21 Damion Nuñez MD [address] [facility] [address] [place] [address] PCP - General Internal Medicine 12/10/22 Day Trader Relationship Specialty Start Date End Date Damion Nuñez MD [address] [facility] [address] [place] [address] PCP - Emilio LICEA 06/01/21 Damion Nuñez MD [address] [facility] [address] [place] [address] PCP - General Internal Medicine 12/10/22 Day Trader Relationship Specialty Start Date End Date Damion Nuñez MD [address] [facility] [address] [place] [address] PCP - General Internal Medicine 02/17/18 FOR RECORDS PERTAINING TO PATIENTS WHO ARE OR HAVE BEEN ENROLLED IN A CHEMICAL DEPENDENCY/SUBSTANCEABUSE PROGRAM, SOME INFORMATION MAY BE OMITTED. This clinical summary was aggregated from multiple sources. Caution should be exercised in using it in the provision of clinical care. This summary normalizes information from multiple sources, and as a consequence, information in this document may materially change the coding, format and clinical context of patient data. In addition, data may be omitted in some cases. CLINICAL DECISIONS SHOULD BE BASED ON THE PRIMARY CLINICAL RECORDS. [facility]. provides no warranty or guarantee of the accuracy or completeness of information in this document.
[2025-02-08 11:38] VITALS: BP 161/91; PULSE 91; TEMP 36.7; O2SAT 92; BMI 21.5
[2025-02-08 12:00] LABS: Glucose Urine UA NEGATIVE (NEGATIVE)
[2025-02-08 12:12] LABS: Cast Seen? NONE SEEN #/LPF (NONE SEEN); Crystals Seen? None Seen #/HPF (None Seen)
--- NOTE | 2025-02-08 13:20 | ED_ITS ---
HPI - Male Genitourinary General Chief complaint: Urogenital-Male Stated complaint: blood in urine Time Seen by Provider: 02/08/25 12:46 Source: patient and family Mode of arrival: walk-in Limitations: no limitations History of Present Illness HPI Narrative: 84-year-old male with a history of kidney stone several months ago (thought to have passed, no urology follow-up) presents with cayla hematuria since last nigh t. He denies flank pain, dysuria, urinary frequency, urgency, nausea, vomiting, diarrhea, or fever. Eating and drinking normally. No known anticoagulant use reported. He states he takes apple cider vinegar and uses a vibrator on his muscles for fibromyalgia as he believes he has poison in his blood from the environment and is concerned this maybe causing his kidney stones as well. Related Data Home Medications ?Medication ?Instructions ?Recorded ?Confirmed brimonidine 0.2 % eye drops 1 drp ophthalmic (eye) QDA Y 02/08/25 02/08/25 Previous Rx's ?Medication ?Instructions ?Recorded tamsulosin 0.4 mg capsule (Flomax) 0.4 mg PO DAILY #7 caps 02/08/25 Allergies Allergy/AdvReac Type Severity Reaction Status Date / Time codeine Allergy Unknown Unknown Verified 02/08/25 11:38 PFSH PFSH Social History Little interest or pleasure in doing things: not at all Feeling down, depressed, or hopeless: not at all Exam Narrative Exam Narrative: General: Well-appearing, in no acute distress. Vital Signs: BP 161/91, HR 91, RR normal, Temp normal, O? sat 92% on room air. Abdomen: Soft, nontender, no palpable masses, no CVA tenderness. : no suprapubic tenderness. Cardiac: Normal rate and rhythm. Lungs: Clear to auscultation bilaterally. Extremities: No edema. Neuro: Alert and oriented ?3. Constitutional Vital Signs, click to edit/add: Last Vital Signs Temp 98.1 F 02/08/25 11:38 Pulse 91 H 02/08/25 11:38 Resp 16 02/08/25 11:38 BP 161/91 H 02/08/25 11:38 Pulse Ox 92 L 02/08/25 11:38 O2 Del Method Room Air 02/08/25 11:38 Course Vital Signs Vital signs: Vital Signs Temperature 98.1 F 02/08/25 11:38 Pulse Rate 91 H 02/08/25 11:38 Respiratory Rate 16 02/08/25 11:38 Blood Pressure 161/91 H 02/08/25 11:38 Pulse Oximetry 92 L 02/08/25 11:38 Oxygen Delivery Method Room Air 02/08/25 11:38 Temperature 98.1 F 02/08/25 11:38 Pulse Rate 91 H 02/08/25 11:38 Respiratory Rate 16 02/08/25 11:38 Blood Pressure 161/91 H 02/08/25 11:38 Pulse Oximetry 92 L 02/08/25 11:38 Oxygen Delivery Method Room Air 02/08/25 11:38 MDM - Male Genitourinary MDM Narrative Medical decision making narrative: Patient presents with painless gross hematuria. History notable for prior kidney stones. Laboratory evaluation including CBC, CMP, and urinalysis shows hematuria without evidence of infection. CT scan demonstrates a 6 mm stone in the left ureteropelvic junction (UPJ). Vitals are stable and exam unremarkable. Presentation is consistent with acute ureteral calculus causing hematuria. Given stone size, patient may pass spontaneously, but urology referral strongly recommended for further evaluation and management. Referred to Dr. Goodson. Patient advised on hydration, pain control, and straining urine to capture the stone. Return precautions discussed for severe pain, inability to urinate, fever, or worsening hematuria. Treated with flomax 1 x day for 5-7 days. No pain control needed at this time. Patient voices understands and will follow up as discussed. Differential Diagnosis Differential diagnosis: Likely urinary tract infection, urethritis, prostatitis and other Medical Records Attestation: I reviewed the patient's medical records. Lab Data Attestation: I reviewed the patient's lab results. Labs: Lab Results 02/08/25 02/08/25 Range/Units 11:50 13:14 WBC 9.0 (4.0-11.0) 10^3/uL RBC 5.43 (4.70-6.10) 10^6/uL Hgb 16.9 (14.0-18.0) g/dL Hct 49.9 (42.0-54.0) % MCV 91.9 (80.0-94.0) fL MCH 31.1 (25.9-34.0) pg MCHC 33.9 (29.9-35.2) g/dL RDW 13.8 (11.0-15.0) % Plt Count 307 (150-450) 10^3/uL MPV 9.3 L (9.5-13.5) fL Neut % (Auto) 76.9 H (43.0-75.0) % Lymph % (Auto) 12.0 L (20.5-60.0) % Dukes % (Auto) 9.1 (1.7-12.0) % Eos % (Auto) 0.9 (0.9-7.0) % Baso % (Auto) 0.9 (0.2-2.0) % Neut # (Auto) 6.9 H (1.4-6.5) 10^3/uL Lymph # (Auto) 1.1 L (1.2-3.8) 10^3/uL Dukes # (Auto) 0.8 (0.3-0.8) 10^3/uL Eos # (Auto) 0.1 (0.0-0.7) 10^3/uL Baso # (Auto) 0.1 (0.0-0.1) 10^3/uL Abs Immat Gran (auto) 0.02 (0.00-0.03) 10^3/uL Imm/Tot Granulo (auto) 0.2 (0.0-0.5) % Sodium 140 (136-145) mmol/L Potassium 3.9 (3.5-5.1) mmol/L Chloride 104 (98-107) mmol/L Carbon Dioxide 26.7 (21.0-32.0) mmol/L Anion Gap 13.2 BUN 27.0 H (7.0-18.0) mg/dL Creatinine 1.30 (0.70-1.30) mg/dL Est GFR ( Amer) >60 (>=60 mL/min/1.73m^2) Est GFR (Non-Af Amer) 53 L (>=60 mL/min/1.73m^2) BUN/Creatinine Ratio 20.8 Glucose 110 H (74-106) mg/dL Calcium 9.5 (8.5-10.1) mg/dL Total Bilirubin 0.5 (0.2-1.0) mg/dL AST 16 (15-37) U/L ALT 23 (16-63) U/L Alkaline Phosphatase 129 H (46-116) U/L Total Protein 8.0 (6.4-8.2) g/dL Albumin 3.8 (3.4-5.0) g/dL Globulin 4.2 g/dL Albumin/Globulin Ratio 0.9 Urine Color Dk. brown (YELLOW) Urine Clarity Cloudy A (CLEAR) Urine pH 6.0 (5.0-9.0) Ur Specific Bonnyman 1.025 (1.005-1.025) Urine Protein 100 A (NEG/TRACE) mg/dL Urine Glucose (UA) Negative (NEGATIVE) mg/dL Urine Ketones Negative (NEGATIVE) mg/dL Urine Occult Blood Large A (NEGATIVE) Urine Nitrite Negative (NEGATIVE) Urine Bilirubin Small A (NEGATIVE) Urine Urobilinogen 1.0 (0.2-1.0) EU/dL Ur Leukocyte Esterase Trace A (NEGATIVE) Urine RBC 75-100 A (0-2) #/HPF Urine WBC 0-2 A (NONE SEEN) #/HPF Ur Squamous Epith Cells Rare (NONE/RARE) #/LPF Urine Crystals None seen (None Seen) #/HPF Calcium Oxalate Crystal Rare Urine Bacteria Trace A (NONE SEEN) #/HPF Urine Casts None seen (NONE SEEN) #/LPF Urine Mucus Trace A (NONE SEEN) Imaging Data CT scan - abdomen: Attestation: I have reviewed the pertinent imaging results. Radiologist's impression: ITS Impressions Abdomen/Pelvis CT 02/08/25 13:23 IMPRESSION: Left nephrolithiasis with 6 mm obstructing stone left UPJ. Urinary bladder calculus. Impression dictated by: Pilo Jiménez Jr., D.O. 02/08/2025 2:10 PM Dictation Location: [place] [id number] Electronically authenticated by: [id number] Y Date: 02/08/2025 14:10 Discharge Plan Discharge Chief Complaint: Urogenital-Male Clinical Impression: Kidney stone, Hematuria Patient Disposition: Home, Self-Care Time of Disposition Decision: 15:00 Condition: Good Prescriptions / Home Meds: New tamsulosin [Flomax] 0.4 mg capsule 0.4 mg PO DAILY Qty: 7 0RF No Action brimonidine 0.2 % drops 1 drp OPHTHALMIC (EYE) QDAY Print Language: Mexican Instructions: Kidney Stones (ED), Hematuria (ED) Additional Instructions: Medications: * Flomax 0.4 mg once a day for 5-7 days to help kidney stone pass into the bladder. * Continue any current medications as directed by your doctor. Self-Care / Monitoring: * Drink plenty of fluids to help pass the stone (aim for 2?3 liters per day unless restricted). * Monitor urine for blood and stone passage. * Strain urine to catch stones if possible for analysis. * Maintain normal diet unless otherwise instructed. Return to Care Immediately If: * Severe pain not relieved by medication. * Inability to urinate or complete urinary retention. * Fever, chills, or signs of infection. * Significant worsening of hematuria or large blood clots in urine. * Dizziness, weakness, or other concerning symptoms. Follow-Up: * Schedule an appointment with urology for evaluation of hematuria and possible imaging (CT urogram or ultrasound). * follow-up labs urinalysis 1 week to make sure hematuria resolves Additional Instructions: * Notify your provider if hematuria persists beyond a few days or worsens. Referrals: MARII VAZQUEZ [Primary Care Provider, Internal Medicine] - 1 week Clyde Goodson MD [Physician, Urology] - 1 week Referral Note: call for follow up 1 week Discharge Date/Time: 02/08/25 15:22
--- NOTE | 2025-02-08 13:23 | CT_ITS ---
The [address] [address] Patient Name: NEGAR SABA MRN: [id number] date: 1940 Sex: M Assigned Patient Location: ER Current Patient Location: ER Accession/Order Number: [id number] Exam Date: 02/08/2025 13:20 Report Date: 02/08/2025 14:10 At the request of: MATTHEW BHATT Procedure: CT abdomen pelvis wo con CT ABDOMEN AND PELVIS WITHOUT INTRAVENOUS CONTRAST: CLINICAL HISTORY: hematuria, hx stones COMPARISON: None TECHNIQUE: Spiral images were obtained through the abdomen and pelvis without intravenous contrast. This CT exam was performed using one or more following dose reduction techniques: Automated exposure control, adjustment of the mA and/or kV according to patient size, or use of iterative reconstruction technique. FINDINGS: Lung Bases: [Bibasilar fibrotic changes without significant honeycombing.] Organs:Suboptimal evaluation due to lack of IV contrast.[Subcentimeter low attenuating lesions are seen within the liver too small fracture characterization. Presumed sludge seen within the gallbladder lumen. No CBD dilatation. Splenic granuloma. Pancreas and adrenal glands appear unremarkable. Cystic changes involving the kidneys with punctate stone left kidney. Obstructing calculus left UPJ measuring 6 mm. Aorta appears normal in caliber. GI: Small hiatal hernia. Distal stomach is grossly unremarkable. Small bowel appears nondilated. No acute colonic abnormality.[ Pelvis:[Urinary bladder calculus is noted. Prostatomegaly.] Peritoneum/Retroperitoneum:No free air or free fluid or lymphadenopathy.[ Abd wall/Bones:Abdominal wall demonstrates no acute findings. Osseous structures demonstrate degenerative change.[ CT/CT abdomen pelvis wo con IMPRESSION: Left nephrolithiasis with 6 mm obstructing stone left UPJ. Urinary bladder calculus. Impression dictated by: Pilo Jiménez Jr., D.O. 02/08/2025 2:10 PM Dictation Location: [employer] [facility] [employer] Electronically authenticated by: [id number] Y Date: 02/08/2025 14:10
[2025-02-08 13:25] LABS: Hematocrit 49.9 % (42.0-54.0); Hemoglobin 16.9 g/dL (14.0-18.0); Immature Granulocytes Abs Auto 0.02 10^3/uL (0.00-0.03); Immature Granulocytes Pct Auto 0.2 % (0.0-0.5); Lymphocytes Absolute Auto 1.1 10^3/uL (1.2-3.8); Mean Corpuscular HGB Conc 33.9 g/dL (29.9-35.2); Mean Corpuscular Hemoglobin 31.1 pg (25.9-34.0); Mean Corpuscular Volume 91.9 fL (80.0-94.0); Platelet Count 307 10^3/uL (150-450); Red Blood Count 5.43 10^6/uL (4.70-6.10); White Blood Count 9.0 10^3/uL (4.0-11.0)
[2025-02-08 13:39] LABS: Alanine Aminotransferase 23 U/L (16-63); Albumin Globulin Ratio 0.9; Albumin Level 3.8 g/dL (3.4-5.0); Alkaline Phosphatase 129 U/L (46-116); Anion Gap 13.2; Aspartate Amino Transferase 16 U/L (15-37); Blood Urea Nitrogen 27.0 mg/dL (7.0-18.0); Calcium 9.5 mg/dL (8.5-10.1); Carbon Dioxide 26.7 mmol/L (21.0-32.0); Chloride 104 mmol/L (98-107); Estimated GFR (African America >60 (>=60 mL/min/1.73m^2); Estimated GFR (Non-African Ame 53 (>=60 mL/min/1.73m^2); Globulin 4.2 g/dL; Glucose 110 mg/dL (74-106); Potassium 3.9 mmol/L (3.5-5.1); Sodium 140 mmol/L (136-145); Total Protein 8.0 g/dL (6.4-8.2)
== END 2025-02-08 15:22 | disposition home or self-care (01) ==
PROVIDERS: Physician Assistant; Emergency Provider Emergency Medicine; PCP Internal Medicine
DX: N20.1 Calculus of ureter (principal); Z87.442 Personal history of urinary calculi; R31.0 Gross hematuria; M79.7 Fibromyalgia
CPT/HCPCS: 36415; 74176; 80053; 81001; 85025; 99285

== ENCOUNTER 2025-05-11 09:33 | Outpatient (OUT) | payer MEDICARE, SELFPAY ==
--- OUTSIDE RECORDS SUMMARY | 2025-05-11 09:43 | XMS_ITS | CCD ---
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 64452-4, CBCA, CMP ####[facility] ([id number])[address] [place] [address] 42160MGK morphology finding Nom (Bld)NORMALExcelsior Springs Medical CenteralAdena Health System Comment on above:Performed By: #### 54499-7, CBCA, CMP ####[facility] ([id number])[address] [place] [address] 87280NDL JUQHXBOWES15.0 %NormalProChristus Saint Michael HospitalComment on above:Performed By: #### 57869-8, CBCA, CMP ####[facility] ([id number])[address] [place] [address] 25723LMX (Bld) [#/Vol]18.0 10*3/uLHigh4.0-11.0 ProMedicRancho Springs Medical CenterComment on above:Performed By: #### 30621-3, CBCA, CMP ####[facility] ([id number])[address] [place] [address] 99773XFJLAJQSBJYAF METABOLIC PANELon 53-50-3935Nqhobii [Mass/Vol]3.2 g/dLNormal3.2-5.3[facility] Medical CenterComment on above: Performed By: #### 42765-2, CBCA, CMP ####[facility] ([id number])[address] [place] [address] 43377LKM [Catalytic activity/Vol]78 U/SQyiozw70-755XgqLsfentAdena Health SystemComment on above: Performed By: #### 07824-2, CBCA, CMP ####[facility] ([id number])[address] [place] [address] [place] 97905ARY [Catalytic activity/Vol]17 U/LNormal0-40ProChristus Saint Michael HospitalComment on above: Performed By: #### 83768-1, CBCA, CMP ####[facility] ([id number])[address] [place] [address] 82802Walot gap [Moles/Vol]11 mmol/LNormal5-15ProChrist[facility] Saint Michael HospitalComment on above: Performed By: #### 25216-5, CBCA, CMP ####[facility] ([id number])[address] [place] [address], [place] 55566NNS [Catalytic activity/Vol]49 U/LHigh0-41ProChristus Saint Michael HospitalComment on above:Performed By: #### 49512-8, CBCA, CMP ####[facility] ([id number])[address] [place] [address], [place] 50412Odcemdoro [Mass/Vol]0.6 mg/dLNormal 0.3-1.2PDoctors HospitalComment on above:Performed By: #### 00271-0, CBCA, CMP ####[facility] ([id number])[address] [place] [address], [place] 747[address]Npjbgzt [Mass/Vol]8.6 mg/dLNormal8.5-10.5PDoctors HospitalComment on above:Performed By: #### 91589-4, CBCA, CMP ####[facility] ([id number])[address] [place] [address], [place] 63009Mtqmuwhz [Moles/Vol]101 mmol/HMznpdj25-363QljDgczsbAdena Health SystemComment on above:Performed By: #### 53856-5, CBCA, CMP ####[facility] ([id number])[address] [place] [address], [place] 01469CD6 [Moles/Vol]24 mmol/WZlbazn30-92WkjTfegpeDoctors HospitalComment on above:Performed By: #### 52847-7, CBCA, CMP ####[facility] ([id number])[address] [place] [address], [place] 027[address]Uwgyoerria [Mass/Vol]1.53 mg/dLHigh0.70-1.20[facility] Comment on above:Result Comment: METHOD TRACEABLE TO IDMS STANDARDPerformed By: #### 74024-5, CBCA, CMP ####[facility] ([id number])[address] [place] [address] 77161BBI/1.73 sq M.predicted among non-blacks MDRD (S/P/Bld) [Vol rate/Area]45 mL/min/{1.73_m2}Low>59ProChristus Saint Michael HospitalComment on above:Result Comment: Reported eGFR is based on the CKD-EPI 2020 equation that does not use a race coefficient.Performed By: #### 78073-5JÚNIOR Parker, CMP ####[facility] ([id number])[address] [place] [address] 45782Hvzqcrh [Mass/Vol]144 mg/yVUvow45-92VllEwpyqbChristus Saint Michael HospitalComment on above:Performed By: #### 60804-1JÚNIOR Day, CMP ####[facility] ([id number])[address] [place] [address] 63865Cbgltunwn [Moles/Vol]4.4 mmol/LNormal3.5-5.0ProChristus Saint Michael HospitalComment on above: Performed By: #### 59595-5, CBCA, CMP ####[facility] ([id number])[address] [place] [address] 63394Goiegom [Mass/Vol]5.8 g/dLLow6.0-8.0ProChrist[facility] Saint Michael HospitalComment on above:Performed By: #### 42847-1, CBCA, CMP ####[facility] ([id number])[address] [place] [address] 32899Gahfji [Moles/Vol]136 mmol/LNormal 134-146ProChristus Saint Michael HospitalComment on above:Performed By: #### Ana CBCA, CMP ####[facility] ([id number])[address] [place] [address] 01328Ighh nitrogen [Mass/Vol]33 mg/dLHigh5-27ProChristus Saint Michael HospitalComment on above:Performed By: #### 21627-5, CBCA, CMP ####[facility] ([id number])[address] [place] [address] 44405MUDPQDPRLvy 41-31-8797Vmhypsnmd [Mass/Vol]2.2 mg/dLNormal1.8-2.6A[facility]a Health SystemComment on above:Performed By: #### 25899-0, CBCA, CMP ####[facility] ([id number])[address] [place] [address] 03076OL CHEST 1 VWon 89-06-8189IZ CHEST 1 VWXR CHEST 1 VW Clinical history: Hypoxia and shortness of breath Views: 1 Comparison: 04/06/2024 Findings/Impression: 1. Lungs hyperinflated. No volume loss or consolidation. Heart and mediastinal structures normal. No pleural effusion or pneumothorax. 2. Advanced chronic lung disease without interval change. Finalized by Ronald Mendez MD on 04/08/2024 2:10 PMNormalAdena Health System CBC AND AUTO DIFFon 99-88-3441NJIVHQGY BASOPHIL0.0 X10E9/LNormal0.0-0.2PDoctors HospitalComment on above:Performed By: #### 24846-1, CBCA, CMP #### [facility] ([id number]) [address] [place] [address] 51837UTCPATTV NEUTROPHIL9.9 X10E9/LHigh1.5-6.6ProChristus Saint Michael HospitalComment on above:Performed By: #### 05408-9, CBCA, CMP #### [facility] ([id number]) [address] [place] [address] 92717Hkqtjzuri/100 WBC (Bld)0.3 %NormalAdena Health System Comment on above:Performed By: #### 77001-3, CBCA, CMP #### [facility] ([id number]) [address] [place] [address] 58706Uvsqnchvlod (Bld) [#/Vol]0.0 10*3/uLNormal0.0-0.4Adena Health SystemComment on above:Performed By: #### 16584-2, CBCA, CMP #### [facility] ([id number]) [address] [place] [address] 86139Vflcocvexfx/100 WBC (Bld)0.2 %NormalProChristus Saint Michael Hospital Comment on above:Performed By: #### 28785-5, CBCA, CMP #### [facility] ([id number]) [address] [place] [address] 24179Zmjrgmhlkrg distribution width (RBC) [Ratio]13.9 %Normal 11.5-15.0Adena Health SystemComment on above:Performed By: #### 56003-4, CBCA, CMP #### [facility] ([id number]) [address] [place] [address] 93994Vqvcbcoycg (Bld) [Volume fraction]40.2 %Drvtic14-00BivQljenpChristus Saint Michael HospitalComment on above:Performed By: #### 67631-3, CBCA, CMP #### [facility] ([id number]) [address] [place] [address] 53795Jqfkapoxme (Bld) [Mass/Vol]13.4 g/aBDvovtf65.0-17.0A[facility]a Health SystemComment on above:Performed By: #### 88443-8, CBCA, CMP #### [facility] ([id number]) [address] [place] [address] 15515Izaohkvddoq (Bld) [#/Vol]1.3 10*3/uLNormal1.0-3.5PDoctors HospitalComment on above:Performed By: #### 05007-9, CBCA, CMP #### [facility] ([id number]) [address] [place] [address] 22654Adnpaashhfh/100 WBC (Bld)10.1 %[facility] Comment on above:Performed By: #### 17630-5, CBCA, CMP #### [facility] ([id number]) [address] [place] [address] 54788ZHS (RBC) [Entitic mass]30.6 zrYifowf73-09ZiaSpmyjdAdena Health SystemComment on above:Performed By: #### 65626-4, CBCA, CMP #### [facility] ([id number]) [address] [place] [address] 99761KLDF (RBC) [Mass/Vol]33.2 g/zFUicmcm07-73XzaEatetgChristus Saint Michael HospitalComment on above:Performed By: #### 26707-5, CBCA, CMP #### [facility] ([id number]) [address] [place] [address] 27993PWU (RBC) [Entitic vol]92 xPHclyna91-751OaqBrbcvx [facility] HospitalComment on above:Performed By: #### 71583-8, CBCA, CMP #### [facility] ([id number]) [address] [place] [address] 39348Ktlbbdszg (Bld) [#/Vol]1.4 10*3/uLHigh0-0.9A[facility]a Health SystemComment on above:Performed By: #### 96389-2, CBCA, CMP #### [facility] ([id number]) [address] [place] [address] 50316Dxoaukljq/100 WBC (Bld)11.3 %[facility] Comment on above:Performed By: #### 78346-6, CBCA, CMP #### [facility] ([id number]) [address] [place] [address] 93876Nqhjovwlehu/100 WBC (Bld)78.1 %[facility] Comment on above:Performed By: #### 98454-1, CBCA, CMP #### [facility] ([id number]) [address] [place] [address] 00198Vvfqrrbe mean volume (Bld) [Entitic vol]7.8 fLNormal7-12 ProMSalinas Surgery CenterComment on above:Performed By: #### 68460-6, CBCA, CMP #### [facility] ([id number]) [address] [place] [address] 67386Cnqareohg (Bld) [#/Vol]261 10*3/jONpinwa327-129YfwRpuyqjAdena Health SystemComment on above:Performed By: #### 67669-3, CBCA, CMP #### [facility] ([id number]) [address] [place] [address] 20439QZC COUNT4.37 X10E12/LNormal4.10-5.70[facility] Comment on above:Performed By: #### 50197-8, CBCA, CMP #### [facility] ([id number]) [address] [place] [address] 49045GXG (Bld) [#/Vol]12.6 10*3/uLHigh4.0-11.0Adena Health SystemComment on above:Performed By: #### 70166-8, CBCA, CMP #### [facility] ([id number]) [address] [place] [address] 44468RZTIOZQJMTKWK METABOLIC PANELon 68-59-3089Ygzlpmg [Mass/Vol]3.5 g/dLNormal3.2-5.3PDoctors HospitalComment on above:Performed By: #### 18520-1, CBCA, CMP ####[facility] ([id number])[address] [place] [address] 80678TJC [Catalytic activity/Vol]93 U/LNormal 39-130ProChristus Saint Michael HospitalComment on above:Performed By: #### 51522-5, CBCA, CMP ####[facility] ([id number])[address] [place] [address], [place] 20983JZB [Catalytic activity/Vol]21 U/LNormal0-40ProChrist[facility] Saint Michael HospitalComment on above:Performed By: #### 51533-5, CBCA, CMP ####[facility] ([id number])[address] [place] [address], [place] 46359Ibmpj gap [Moles/Vol]9 mmol/LNormal5-15Pro[facility] Saint Michael HospitalComment on above:Performed By: #### 25400-2, CBCA, CMP ####[facility] ([id number])[address] [place] [address], [place] 79696TXH [Catalytic activity/Vol]45 U/LHigh0-41Pro[facility] Saint Michael HospitalComment on above:Performed By: #### 91296-6, CBCA, CMP ####[facility] ([id number])[address] [place] [address], [place] 06779Iifqcpsxo [Mass/Vol]0.6 mg/dLNormal0.3-1.2PDoctors HospitalComment on above: Performed By: #### 98286-3, CBCA, CMP ####[facility] ([id number])[address] [place] [address], [place] 92058Clhzpvp [Mass/Vol]9.0 mg/dLNormal8.5-10.5PDoctors HospitalComment on above: Performed By: #### 46435-9, CBCA, CMP ####[facility] ([id number])[address] [place] [address], [place] 54718Ykfnajty [Moles/Vol]106 mmol/RAhdzqv36-514OafCgwwmkChristus Saint Michael HospitalComment on above: Performed By: #### 79549-4JÚNIOR, CMP ####[facility] ([id number])[address] [place] [address], [place] 56053NX9 [Moles/Vol]24 mmol/TKlxjpm68-87RbmHdppnf [facility] CenterComment on above:Performed By: #### 28075-2, CBCA, CMP ####[facility] ([id number])[address] [place] [address], [place] 88322Ewacunqkcj [Mass/Vol]1.31 mg/dLHigh0.70-1.20 ProMedicRancho Springs Medical CenterComment on above:Result Comment: METHOD TRACEABLE TO IDMS STANDARDPerformed By: #### 53795-6JÚNIOR Day, CMP ####[facility] ([id number])[address] [place] [address] 83088ZIC/1.73 sq M.predicted among non-blacks MDRD (S/P/Bld) [Vol rate/Area]54 mL/min/{1.73_m2} Low>59ProChristus Saint Michael HospitalComment on above:Result Comment: Reported eGFR is based on the CKD-EPI 2020 equation that does not use a race coefficient.Performed By: #### 63443-1, CBCA, CMP ####[facility] ([id number])[address] [place] [address], [place] 95184Qxsehpt [Mass/Vol]139 mg/xZYdrx80-02SqiWqbqmcChristus Saint Michael HospitalComment on above:Performed By: #### 46621-4, CBCA, CMP ####[facility] ([id number])[address] [place] [address], [place] 06600Bnqvvgact [Moles/Vol]4.4 mmol/LNormal3.5-5.0ProChristus Saint Michael HospitalComment on above: Performed By: #### 62596-0JÚNIOR, CMP ####[facility] ([id number])[address] [place] [address], [place] 035[address]Sluonio [Mass/Vol]6.1 g/dLNormal6.0-8.0Adena Health SystemComment on above: Performed By: #### 90916-9, CBCA, CMP ####[facility] ([id number])[address] [place] [address], [place] 38233Wnwfky [Moles/Vol]139 mmol/JMtmosl336-094PzxSmovsu [facility]ont HospitalComment on above: Performed By: #### 47509-4, CBCA, CMP ####[facility] ([id number])[address] [place] [address], [place] 16647Zapg nitrogen [Mass/Vol]26 mg/dLNormal5-27ProChrist[facility] Saint Michael HospitalComment on above:Performed By: #### 58582-1, CBCA, CMP ####[facility] ([id number])[address] [place] [address], [place] 07587RWNTTODDUkn 49-60-5847Hmkprgncw [Mass/Vol]2.2 mg/dLNormal1.8-2.6ProChrist[facility] Saint Michael HospitalComment on above: Performed By: #### 29584-5, CBCA, CMP ####[facility] ([id number])[address] [place] [address], [place] 538[address]MC ANKLE RT MIN 3 VWSon 44-22-7789CR ANKLE RT MIN 3 VWSXR ANKLE RT MIN 3 VWS HISTORY: Tibial [...] by Nickolas Bonilla MD on 04/07/2024 1:07 PMNormalProChristus Saint Michael HospitalBASIC METABOLIC PANLon 17-08-2114Keyon gap [Moles/Vol]9 mmol/LNormal5-15 [facility] SystemComment on above:Performed By: #### JÚNIOR ROSE #### [facility] ([id number]) [address] [place] [address] 35083Ndumdzk [Mass/Vol]9.2 mg/dLNormal8.5-10.5PDoctors HospitalComment on above:Performed By: #### MILTON, JÚNIOR #### [facility] ([id number]) [address] [place] [address], [place] 20[address]Uixpldkm [Moles/Vol]104 mmol/EXklzeo51-903ErxBoiieaAdena Health SystemComment on above:Performed By: #### MILTON, JÚNIOR #### [facility] ([id number]) [address] [place] [address] 38254LJ3 [Moles/Vol]25 mmol/RSakzri88-34LisJnstsgDoctors Hospital Comment on above:Performed By: #### JÚNIOR ROSE #### [facility] ([id number]) [address] [place] [address] 64145Wyqqxczyzz [Mass/Vol]1.30 mg/dLHigh0.70-1.20Adena Health SystemComment on above:Result Comment: METHOD TRACEABLE TO IDMS STANDARD Performed By: #### MILTON, JÚNIOR #### [facility] ([id number]) [address] [place] [address] 04345NIG/1.73 sq M.predicted among non-blacks MDRD (S/P/Bld) [Vol rate/Area]55 mL/min/{1.73_m2}Low>59ProChristus Saint Michael HospitalComment on above: Result Comment: Reported eGFR is based on the CKD-EPI 2020 equation that does not use a race coefficient.Performed By: #### MILTON, JÚNIOR #### [facility] ([id number]) [address] [place] [address] 81899Boddkoj [Mass/Vol]170 mg/bMZgrb10-53CbqSkzikvAdena Health System Comment on above:Performed By: #### MILTON, CBCA #### [facility] ([id number]) [address] [place] [address] 73542Zbtoxiclg [Moles/Vol]3.9 mmol/LNormal3.5-5.0ProChristus Saint Michael HospitalComment on above:Performed By: #### MILTON, CBCA #### [facility] ([id number]) [address] [place] [address] 62116Ykivib [Moles/Vol]138 mmol/XTmrcdr800-986IgsYuhzmh [facility] HospitalComment on above:Performed By: #### MILTON, CBCA #### [facility] ([id number]) [address] [place] [address] 43273Enar nitrogen [Mass/Vol]15 mg/dLNormal5-27ProChristus Saint Michael HospitalComment on above:Performed By: #### MILTON, CBCA #### [facility] ([id number]) [address] [place] [address], [place] 93[address]NOD AND AUTO DIFFon 76-03-5781UVMKSKKF BASOPHIL0.0 X10E9/L Normal0.0-0.2ProMedKaiser Martinez Medical CenterComment on above:Performed By: #### MILTON, CBCA #### [facility] ([id number]) [address] [place] [address] 55016OANSMBWL OXMXHCOPPO94.9 X10E9/LHigh1.5-6.6ProChristus Saint Michael HospitalComment on above:Performed By: #### MILTON, CBCA #### [facility] ([id number]) [address] [place] [address] 74661Ejhjpkqjn/100 WBC (Bld)0.2 %NormalAdena Health System Comment on above:Performed By: #### MILTON, CBCA #### [facility] ([id number]) [address] [place] [address] 80796Vahbsjbwehv (Bld) [#/Vol]0.0 10*3/uLNormal0.0-0.4Adena Health SystemComment on above:Performed By: #### MILTON, CBCA #### [facility] ([id number]) [address] [place] [address] 19103Pnkszkpjexj/100 WBC (Bld)0.1 %NormalProChristus Saint Michael Hospital Comment on above:Performed By: #### MILTON, CBCA #### [facility] ([id number]) [address] [place] [address] 05554Mxflmxqanee distribution width (RBC) [Ratio]13.8 %Normal 11.5-15.0ProChristus Saint Michael HospitalComment on above:Performed By: #### MILTON, CBCA #### [facility] ([id number]) [address] [place] [address] 37510Undscrvmjh (Bld) [Volume fraction]46.7 %Xyajuy02-31BgrDctnzoChristus Saint Michael HospitalComment on above:Performed By: #### MILTON, CBCA #### [facility] ([id number]) [address] [place] [address] 82051Lqsjespubl (Bld) [Mass/Vol]15.5 g/tIYugzey83.0-17.0ProChristus Saint Michael HospitalComment on above:Performed By: #### MILTON, CBCA #### [facility] ([id number]) [address] [place] [address] 51083Kbffzpfjbtk (Bld) [#/Vol]0.9 10*3/uLLow1.0-3.5PDoctors HospitalComment on above:Performed By: #### MILTON, CBCA #### [facility] ([id number]) [address] [place] [address] 40597Lbrdokcwatn/100 WBC (Bld)5.0 %[facility] Comment on above:Performed By: #### BMP, CBCA #### [facility] ([id number]) [address] [place] [address] 71353UBO (RBC) [Entitic mass]31.0 wvBbabbt91-39CldCtliqoAdena Health SystemComment on above:Performed By: #### BMP, CBCA #### [facility] ([id number]) [address] [place] [address] 13184MQQO (RBC) [Mass/Vol]33.3 g/eRUnrljf80-71OwiOjdzsxAdena Health SystemComment on above:Performed By: #### BMP, CBCA #### [facility] ([id number]) [address] [place] [address] 29077MUI (RBC) [Entitic vol]93 cNDtwosf04-980HejBmzutdAdena Health SystemComment on above:Performed By: #### BMP, CBCA #### [facility] ([id number]) [address] [place] [address] 16035Yqoogbzjf (Bld) [#/Vol]1.3 10*3/uLHigh0-0.9Adena Health SystemComment on above:Performed By: #### BMP, CBCA #### [facility] ([id number]) [address] [place] [address] 07968Gvuakfxrf/100 WBC (Bld)7.4 %[facility] Comment on above:Performed By: #### BMP, CBCA #### [facility] ([id number]) [address] [place] [address] 87087Gpodjtmskcn/100 WBC (Bld)87.3 %[facility] Comment on above:Performed By: #### BMP, CBCA #### [facility] ([id number]) [address] [place] [address] 82807Wggnpqrb mean volume (Bld) [Entitic vol]7.8 fLNormal7-12 [facility] SystemComment on above:Performed By: #### JÚNIOR ROSE #### [facility] ([id number]) [address] [place] [address] 34297Sbzurcdqs (Bld) [#/Vol]305 10*3/kVOnpqae026-836NeoPvjzop Fremont HospitalComment on above:Performed By: #### JÚNIOR ROSE #### [facility] ([id number]) [address] [place] [address] 00793NEO COUNT5.01 X10E12/LNormal4.10-5.70[facility] Comment on above:Performed By: #### JÚNIOR ROSE #### [facility] ([id number]) [address] [place] [address] 62549OQH (Bld) [#/Vol]17.1 10*3/uLHigh4.0-11.0Adena Health SystemComment on above:Performed By: #### JÚNIOR ROSE #### [facility] ([id number]) [address] [place] [address] 61341IT ANKLE RT WO CONTon 60-35-5909UN ANKLE RT WO CONTCT ANKLE RT WO CONT CT OF THE [...] by Wolf Teresa MD on 04/06/2024 6:02 [facility] CONTon 55-28-2463NV BRAIN WO CONTCT BRAIN WO CONT CT BRAIN WO CONT [...] by Heath Kennedy MD on 04/06/2024 2:35 [facility] CT CERVICAL SPINE WO CONTon 55-85-2295TQ CERVICAL SPINE WO CONTCT CERVICAL SPINE WO CONT EXAM: CERVICAL SPINE [...] by Kemal Fletcher MD on 04/06/2024 2:34 [facility] XR ANKLE RT 2 VWSon 32-16-7008PR ANKLE RT 2 VWSXR ANKLE RT 2 VWS History: Injury, displaced proximal fibular and distal tibia fracture. EXAM: Right ankle AP lateral COMPARISON: Right tibia-fibula IMPRESSION: Displaced oblique distal tibial fracture partly imaged. Nondisplaced fracture line extends through the medial malleolus. No dislocation or osseous destruction. Finalized by Tad Mcnulty MD on 04/06/2024 12:42 [facility] 1 VWon 63-89-6944QM CHEST 1 VWXR CHEST 1 VW HISTORY: An 83-year-old male [...] by Ap Forrester MD on 04/06/2024 5:19 [facility] CenterXR SHOULDER RT MIN 2 VWSon 01-65-5058MD SHOULDER RT MIN 2 VWSXR SHOULDER RT MIN 2 VWS XR SHOULDER [...] by Julián Franco MD on 04/06/2024 2:34 PMNUniversity [facility] CenterXR TIBIA FIBULA RT MIN 2 VWSon 47-51-2127ZB TIBIA FIBULA RT MIN 2 VWSXR TIBIA FIBULA RT MIN 2 VWS CLINICAL [...] by Tommy Fraser MD on 04/06/2024 12:36 [facility] ColumbusRESPIRATORY PANEL PLUSon 18-30-6101ZwvohqtqsgHuh detectedNormalNOT DETECTEDThe [facility] Pike Medical CenterComment on above:Performed By: #### RSPLUS #### [facility] [address] [place], [place] [address] Dr. Shawnee Barlow ParapertusisNot detectedNormalNOT DETECTEDThe [facility] Medical CenterComment on above:Performed By: #### RSPLUS #### [facility] [address] [address] [address] Shawnee Barlow PertussisNot detectedNormalNOT DETECTEDThe [facility] Comment on above:Performed By: #### RSPLUS #### [facility] [address] [address] [address] Shawnee BainChlamydia PneumoniaeNot detectedNormalNOT DETECTEDThe [facility] Medical CenterComment on above:Performed By: #### RSPLUS #### [facility] [address] [address] [address] Shawnee BainCoronavirus 229ENot detectedNormalNOT DETECTEDThe [facility] CenterComment on above:Performed By: #### RSPLUS #### [facility] [address] [address] [address] Shawnee BainCoronavirus IHL3Dbo detectedNormalNOT DETECTEDThe [facility] CenterComment on above:Performed By: #### RSPLUS #### [facility] [address] [address] [address] Shawnee BainCoronavirus AW09Vgn detectedNormalNOT DETECTEDThe [facility] CenterComment on above:Performed By: #### RSPLUS #### [facility] [address] [address] [address] Shawnee BainCoronavirus GG88Skq detectedNormalNOT DETECTEDThe [facility] CenterComment on above:Performed By: #### RSPLUS #### [facility] [address] [address] [address] Shawnee BainInflkathe A H1 2009Not detectedNormalNOT DETECTEDThe [facility] CenterComment on above:Performed By: #### RSPLUS #### [facility] [address] [address] [address] Shawnee BainInflsonnynhumza A H3Not detectedNormalNOT DETECTEDThe [facility] Comment on above:Performed By: #### RSPLUS #### [facility] [address] [address] [address] Shawnee Crocker BNot detectedNormalNOT DETECTEDThe [facility] Comment on above:Performed By: #### RSPLUS #### [facility] [address] [address] [address] Shawnee CantuapneumovirusNot detectedNormalNOT DETECTEDThe [facility] CenterComment on above:Performed By: #### RSPLUS #### [facility] [address] [address] [address] Shawnee Miller. PneumoniaeNot detectedNormalNOT DETECTEDThe [facility] CenterComment on above:Performed By: #### RSPLUS #### [facility] [address] [address] [address] Shawnee Saunders 1Not detectedNormalNOT DETECTEDThe [facility] CenterComment on above:Performed By: #### RSPLUS #### [facility] [address] [address] [address] Shawnee Saunders 2Not detectedNormalNOT DETECTEDThe [facility] CenterComment on above:Performed By: #### RSPLUS #### [facility] [address] [address] [address] Shawnee Saunders 3Not detectedNormalNOT DETECTEDThe [facility] CenterComment on above:Performed By: #### RSPLUS #### [facility] [address] [address] [address] Shawnee Saunders 4Not detectedNormalNOT DETECTEDThe [facility] CenterComment on above:Performed By: #### RSPLUS #### [facility] [address] [address] [address] Shawnee BainRhdemi/EnterovirusNot detectedNormalNOT DETECTEDThe [facility] CenterComment on above:Performed By: #### RSPLUS #### [facility] [address] [address] [address] Shawnee Davis Header 1RESPIRATORY PANEL: VIRUSESNormAvita Health [facility] Comment on above:Performed By: #### RSPLUS #### [facility] [address] [place] [address] Dr. Shawnee Yoder2 Header 2RESPIRATORY PANEL: [facility] on above:Performed By: #### RSPLUS #### [facility] [address] [place] [address] Dr. Shawnee BainRSVNot detectedNormalNOT DETECTEDThe [facility] CenterComhel[facility] on above:Performed By: #### RSPLUS #### [facility] [address] [place] [address] Dr. Shawnee Dixon-CoV-2 (COVID-19) RNA ELENA+probe Ql (Unsp spec)Detected Critically abnormalNOT DETECTEDThe [facility] CenterComhelen [facility] on above:Performed By: #### RSPLUS #### [facility] [address] [place] [address] Dr. Shawnee Youngpletbrandi Blood Counton [id number] distribution width (RBC) [Ratio]13.4 %Igmbwy41.0-15.0[facility]Com[facility] on above:Performed By: #### LIPD, CBC, CMP #### [facility] [address] [place], [place] [id number] (Bld) [Volume fraction]48.4 %Xkwoov99.5-50.0 [facility] on above:Performed By: #### LIPD, CBC, CMP #### [facility] [address] [place], [place] [id number] (Bld) [Mass/Vol]16.0 g/zSPtgsyb60.0-17.1NorthSumma HealthComment on above:Performed By: #### LIPD, CBC, CMP #### [facility] [address] [place], [place] [id number] (RBC) [Entitic mass]30.9 sfMhalqi05.0-33.0NoOhio State Health System SpecialistComment on above:Performed By: #### LIPD, CBC, CMP #### [facility] [address], [place] [id number] (RBC) [Mass/Vol]33.1 g/fMYjezgi00.0-36.0NoOhio State Health System SpecialistComment on above:Performed By: #### LIPD, CBC, CMP #### [facility] [address], [place] [id number] (RBC) [Entitic vol]94 oPCzlaff89-404Iafbyeif [place] [facility] SpecialistComment on above:Performed By: #### LIPD, CBC, CMP #### [facility] [address] [place], [place] [id number] mean volume (Bld) [Entitic vol]9.90 fLNormal 7.50-12.50NortSCCI Hospital [facility] SpecialistComment on above:Performed By: #### LIPD, CBC, CMP #### [facility] [address] [place], [place] [id number] (Bld) [#/Vol]302 10*3/jUSdxgzv038-785Wxdfrqnc [place] [facility] SpecialistComment on above:Performed By: #### LIPD, CBC, CMP #### [facility] [address] [place], [place] [id number] (Bld) [#/Vol]5.17 10*6/uLNormal4.20-5.80[facility]ortSCCI Hospital [facility] SpecialistComment on above:Performed By: #### LIPD, CBC, CMP #### [facility] [address] [place], [place] [id number]-ES45.3 tWEkyfhj43.0-50.0NoOhio State Health System Specialist Comment on above:Performed By: #### LIPD, CBC, CMP #### [facility] [address] [place], [place] [id number] (Bld) [#/Vol]6.6 10*3/uLNormal3.8-11.0[facility]ortSCCI [facility] SpecialistComment on above:Performed By: #### LIPD, CBC, CMP #### [facility] [address] [place], [place] [id number] Metabolic Panelon 42-05-8817Mwzupor [Mass/Vol] 4.4 g/dLNormal3.6-5.1[facility] SpecialistComment on above:Performed By: #### LIPD, CBC, CMP #### [facility] [address] [place], [place] [id number]/Globulin [Mass ratio]1.7 {ratio}Normal1.0-2.5NoOhio State Health System SpecialistComment on above:Performed By: #### LIPD, CBC, CMP #### [facility] [address] [place], [place] [id number] [Catalytic activity/Vol]106 U/MWtghoq29-779Oyloczjw [place] [facility] SpecialistComment on above:Performed By: #### LIPD, CBC, CMP #### [facility] [address] [place], [place] [id number] [Catalytic activity/Vol]14 U/LNormal9-46NoOhio State Health System SpecialistComment on above:Result Comment: 05/01/2021 Female reference range changed.Performed By: #### LIPD, CBC, CMP #### [facility] [address] [place], [place] [id number] gap [Moles/Vol]18 mmol/WRxdirc24-17Ctbvzxwg [place] [facility] SpecialistComment on above:Result Comment: Effective 06/06/2019 reference range changed.Performed By: #### LIPD, CBC, CMP #### [facility] [address], [place] [id number] [Catalytic activity/Vol]22 U/MRgcjpb47-11Xzlwyvyb [place] [facility] SpecialistComment on above:Performed By: #### LIPD, CBC, CMP #### [facility] [address], [place] [id number] [Mass/Vol]0.46 mg/dLNormal0.30-1.20NoOhio State Health System SpecialistComment on above:Performed By: #### LIPD, CBC, CMP #### [facility] [address] [place], [place] [id number]/CREA22 RatioNormal6-22[facility] [place] [employer] Comment on above:Performed By: #### LIPD, CBC, CMP #### [facility] [address] [place], [place] [id number] [Mass/Vol]9.6 mg/dLNormal8.6-10.2[facility] SpecialistComment on above:Performed By: #### LIPD, CBC, CMP #### [facility] [address], [place] [id number] [Moles/Vol]107 mmol/BOlmduq55-240Gmybhnil [place] [facility] SpecialistComment on above:Performed By: #### LIPD, CBC, CMP #### [facility] [address], [place] [id number] [Moles/Vol]24 mmol/VLvadqq69-28Semdpmky [place] [facility] SpecialistComment on above:Performed By: #### LIPD, CBC, CMP #### [facility] [address], [place] [id number] [Mass/Vol]1.2 mg/dLNormal0.7-1.4Nortbanner md anderson [facility] centern [facility] SpecialistComment on above:Performed By: #### LIPD, CBC, CMP #### [facility] [address], [place] [id number] mL/min/1.13p4Xwkslh>60[facility] SpecialistComment on above:Performed By: #### LIPD, CBC, CMP #### [facility] [address] [place], [place] [id number] mL/min/1.86g8Ocq>60NoOhio State Health System Specialist Comment on above:Performed By: #### LIPD, CBC, CMP #### [facility] [address], [place] [id number] (S) [Mass/Vol]2.6 g/dLNormal1.9-3.7[facility]SCC[facility] SpecialistComment on above:Performed By: #### LIPD, CBC, CMP #### [facility] [address], [place] [id number] [Mass/Vol]97 mg/tJFdlaly04-35Tcjubyna [place] [facility] SpecialistComment on above:Result Comment: For FASTING Glucose --- ADA reference ranges: Normal 65-99 mg/dl Prediabetes 100-125 Diabetes >/= 126Performed By: #### LIPD, CBC, CMP #### [facility] [address], [place] [id number] [Moles/Vol]4.5 mmol/LNormal3.5-5.5NoOhio State Health System SpecialistComment on above:Performed By: #### LIPD, CBC, CMP #### [facility] [address], [place] [id number] [Mass/Vol]7.0 g/dLNormal6.1-8.1NortherMain Campus Medical Center SpecialistComment on above:Performed By: #### LIPD, CBC, CMP #### [facility] [address], [place] [id number] [Moles/Vol]144 mmol/BVmghje640-793Mukimveg [place] [facility] SpecialistComment on above:Performed By: #### LIPD, CBC, CMP #### [facility] [address], [place] [id number] nitrogen [Mass/Vol]26 mg/dLHigh7-25NoOhio State Health System SpecialistComment on above:Performed By: #### LIPD, CBC, CMP #### [facility] [address], [place] [id number] Panelon 69-45-2128Mngrspkuagr [Mass/Vol]224 mg/dLHigh 125-200NoOhio State Health System SpecialistComment on above:Result Comment: Low risk < 200mg/dL Borderline risk 201-239 mg/dl High risk > or equal to 240Performed By: #### LIPD, CBC, CMP #### [facility] [address], [place] [id number] in HDL [Mass/Vol]55 mg/dLNormal>40NoOhio State Health System SpecialistComment on above:Result Comment: High Cardiovascular Risk HDL <40 mg/dL Low Cardiovascular Risk HDL > or equal to 60 mg/dlPerformed By: #### LIPD, CBC, CMP #### [facility] [address] [place], [place] [id number] in LDL [Mass/Vol]152 mg/dLNoTogus VA Medical CenterComment on above:Result Comment: LDL ATP III CLASSIFICATION LDL less than 100 mg/dl Optimal LDL 100-129 mg/dl Near or above optimal LDL 130-159 Borderline high LDL 160-189 High LDL greater than 189 mg/dl Very HighPerformed By: #### LIPD, CBC, CMP #### [facility] [address] [place], [place] [id number] in VLDL [Mass/Vol]17 mg/dLNoThe [facility] SpecialistComment on above:Performed By: #### LIPD, CBC, CMP #### [facility] [address] [place], [place] [id number].total/Cholesterol in HDL [Mass ratio]4 {ratio} NormalOhiohealth Shelby Hospital SpecialistComment on above:Performed By: #### LIPD, CBC, CMP #### [facility] [address] [place], [place] [id number] [Mass/Vol]83 mg/wAJosoeo43-726ZtrhwxqrMercy HealthComment on above:Result Comment: TRIG ATPIII CLASSIFICATIONS TRIG less than 150 mg/dl Normal TRIG 150-199 mg/dl Borderline High TRIG 200-500 mg/dl High TRIG greather than 500 mg/dl Very HighPerformed By: #### LIPD, CBC, CMP #### [facility] [address] [place], [place] [id number] Specific Antigen, Totalon 17-67-8050RMMD9.530 ng/mL High<4.000NortSCC[facility] SpecialistComment on above:Result Comment: PSA Test Method: ECLIA/Barron e 601Performed By: #### PSA #### [facility] [address] [place], [place] [id number] W MANUAL DIFFon 40-53-2476CGWTFJMD LYMPH #NormalMarietta Osteopathic ClinicComment on above:Performed By: #### CBCMAN #### [facility] [address] [place] [address] Bri KarenATYPICAL LYMPH %NormalThe Norborne HospitalComment on above: Performed By: #### KELIN #### [facility] [address] [place] [address] Bri KarenBAND #0.1 103/ulNormal0.0-0.3The [facility] CenterComment on above: Performed By: #### KELIN #### [facility] [address] [place] [address] Bri KarenBAND %1 %Normal0-5The [facility] Medical CenterComment on above:Performed By: #### KELIN #### [facility] [address] [place] [address] Bri KarenBASOM #0.00 103/ulNormal0.00-0.10The [facility] Medical CenterComment on above:Performed By: #### KELIN #### [facility] [address] [place] [address] Bri KarenBASOM %0.0 %Critically low0.2-2.0The [facility] Medical CenterComment on above:Performed By: ###Pepe NEVILLE #### [facility] [address] [place] [address] Bri KarenBLAST #NormalMarietta Osteopathic ClinicComhelen newberry [facility] hospital on above:Performed By: #### KELIN #### [facility] [address] [place] [address] Bri KarenBLAST %NormalMarietta Osteopathic ClinicComment on above:Performed By: #### KELIN #### [facility] [address] [place] [address] Bri KarenCORRECTED WBCNormal4.0-11.0The [facility] CenterComment on above: Performed By: #### KELIN #### [facility] [address] [place] [address] Bri KarenEOS #0.11 103/ulNormal0.00-0.70The [facility] Medical CenterComment on above:Performed By: #### KELIN #### [facility] [address] [place] [address] Bri KarenEOS%1.0 %Normal0.9-7.0The [facility] Medical CenterComment on above: Performed By: #### KELIN #### [facility] [address] [place] [address] Bri OgmqlPVZ03.5 %Ckjbqh83.0-54.0The [facility] CenterComment on above: Performed By: #### KELIN #### [facility] [address] [place] [address] Bri TqfilNNO81.9 g/zdWxdlrf31.0-18.0The [facility] CenterComment on above: Performed By: #### KELIN #### [facility] [address] [place] [address] Bri KarenLYMPHM #1.93 103/ulNormal1.20-3.80The [facility] CenterComment on above:Performed By: #### KELIN #### [facility] [address] [place] [address] Bri KarenLYMPHM%18.0 %Critically low20.5-60.0The [facility] CenterComment on above:Performed By: #### KELIN #### [facility] [address] [place] [address] Bri SxjlyNKL47.2 jeGrzwdn44.9-34.0The [facility] CenterComment on above: Performed By: #### KELIN #### [facility] [address] [place] [address] Bri MkefmSUYQ30.2 g/mkXbttyp73.9-35.2The [facility] CenterComment on above: Performed By: #### KELIN #### [facility] [address] [place] [address] Bri AvqwrRYQ76.2 pTAgwkkv09.0-94.0The [facility] CenterComment on above: Performed By: #### KELIN #### [facility] [address] [place] [address] Bri KarenMETAMYELOCYTE #NormalThe [facility] Medical CenterComment on above:Performed By: #### KELIN #### [facility] [address] [place] [address] Bri KarenMETAMYELOCYTE %NormalMarietta Osteopathic ClinicComment on above:Performed By: #### KELIN #### [facility] [address] [place] [address] Bri KarenMONOM#0.64 103/ulNormal0.30-0.80The [facility] CenterComment on above:Performed By: #### KELIN #### [facility] [address] [place] [address] Bri KarenMONOM%6.0 %Normal1.7-12.0The [facility] CenterComment on above: Performed By: #### KELIN #### [facility] [address] [place] [address] Bri KarenMPV9.4 fLCritically low9.5-13.5The [facility] CenterComment on above:Performed By: #### KELIN #### [facility] [address] [place] [address] Bri KarenMYELOCYTE #NormalUniversity Hospitals Parma [facility] Center on above:Performed By: #### KELIN #### [facility] [address] [place] [address] Bri KarenMYELOCYTE %NormalMarietta Osteopathic ClinicComhelen [facility]berry [facility] hospital on above:Performed By: #### KELIN #### [facility] [address] [place] [address] Bri KarenNRBCNormalThe [facility] CenterComment on above:Performed By: #### KELIN #### [facility] [address] [place] [address] Bri GbgxeGFA663 103/ukLzdrag947-589Lrp [facility] CenterComhelen [facility] hospital on above: Performed By: #### KELIN #### [facility] [address] [place] [address] Bri KarenRBC5.10 106/ulNormal4.70-6.10The [facility] Memorial Hospitalment on above: Performed By: #### KELIN #### [facility] [address] [place], [place] [address] Bri McnallyRDW13.2 %Xqcipx54.0-15.0The [facility] Medical CenterComment on above: Performed By: #### ZIGGYSUNDAY #### [facility] [address], [place] [address] Bri BurtonG #7.92 103/ulCritically high1.40-6.50The [facility] CenterComment on above:Performed By: #### CBCSUNDAY #### [facility] [address] [place], [place] [address] Bri BurtonG %74.0 %Ybcnja42.0-75.0The [facility] CenterComment on above: Performed By: #### CBCSUNDAY #### [facility] [address] [place], [place] [address] Bri NievesenWBC10.7 103/ulNormal4.0-11.0The [facility] CenterComment on above: Performed By: #### KELIN #### [facility] [address] [id number] Bri KarenCT ABD/PELVIS WO CONon [id number] ABD/PELVIS WO CONEXAMINATION: CT ABD/PELVIS WO CON, 12/21/2020 7:09 AM [...] associated obstructive uropathy Electronically authenticated by: ZEKE TREVINO Date: 2020-12-21 07:50[facility] URINE PROFILEon 53-70-8912Uorvdvjmn Ql (U)NegativeNormal NEGATIVEMarietta Osteopathic ClinicComment on above:Performed By: #### COURTNEY GOMEZ #### [facility] [address] [place] [address] Bri KarenClarity (U)CLEARNormalCLEARMarietta Osteopathic ClinicComment on above: Performed By: #### COURTNEY GOMEZ #### [facility] [address] [place] [address] Bri KarenColor (U)LT. YELLOWNormalYELLOWMarietta Osteopathic ClinicComment on above:Performed By: #### COURTNEY GOMEZ #### [facility] [address] [place] [address] Bri KarenERUAHDA micrscopic examination will be performed if indicated.Normal The [facility] CenterComment on above:Performed By: #### NAHUM GOMEZR #### [facility] [address] [place] [address] Bri KarenGlucose Ql (U)NegativeNormalNEGATIVEMarietta Osteopathic ClinicComment on above:Performed By: #### COURTNEY GOMEZ #### [facility] [address] [place] [address] Bri KarenHemoglobin Ql (U)SMALLAbnormalNEGATIVEMarietta Osteopathic ClinicComment on above:Performed By: #### NAHUM GOMEZR #### [facility] [address] [place] [address] Bri KarenKetones Ql (U)NegativeNormalNEGATIVEThe Norborne HospitalComment on above:Performed By: #### COURTNEY GOMEZ #### [facility] [address] [place] [address] Bri KarenLEUKOCYTESNegativeNormalNEGATIVEMarietta Osteopathic ClinicComment on above:Performed By: #### JASON ERUR #### [facility] [address] [place] [address] Bri KarenNitrite Ql (U)NegativeNormalNEGATIVEThe [facility] HospitalComment on above:Performed By: #### NAHUM GOMEZR #### [facility] [address] [place] [address] Bri KarenpH (U)6.0 [pH]Normal5-9The [facility] CenterComment on above: Performed By: #### NAHUM GOMEZR #### [facility] [address] [place] [address] Bri KarenSPEC GRAVITY1.823Nlswkp2.005-<=1.025The [facility] Medical CenterComment on above:Performed By: #### COURTNEY GOMEZ #### [facility] [address] [place] [address] Bri KarenUA PROTEINNegativeNormalNEGATIVE/ TRACEThe [facility] CenterComment on above:Performed By: #### NAHUM GOMEZR #### [facility] [address] [place] [address] Bri KarenUR MICRO INDINDICATEDNormalThe [facility] CenterComment on above: Performed By: #### NAHUM GOMEZR #### [facility] [address] [place] [address] Bri KarenUrobilinogen Qn (U)0.2 {Zohreh'U}/dLNormal0.2 - 1.0The Norborne HospitalComment on above:Performed By: #### NAHUM GOMEZR #### [facility] [address] [place] [address] Bri KarenPROF CHEM 8 (BAS METB)on 77-92-7257Gyzqt gap [Moles/Vol]15.0 mmol/L NormalMarietta Osteopathic ClinicComment on above:Performed By: #### BMP #### [facility] [address] [place] [address] Bri KarenCalcium [Mass/Vol]9.1 mg/dLNormal8.4-10.2The [facility] Comment on above:Performed By: #### BMP #### [facility] [address] [place] [address] Bri KarenChloride [Moles/Vol]101 mmol/TSvgwyx87-249Sjj [facility] Comment on above:Performed By: #### BMP #### [facility] [address] [place] [address] Bri KarenCO2 [Moles/Vol]27.0 mmol/RTaqjfj17.0-30.0The [facility] Comment on above:Performed By: #### BMP #### [facility] [address] [place] [address] Bri KarenCreatinine [Mass/Vol]1.81 mg/dLCritically high0.66-1.25The [facility] CenterComment on above:Performed By: #### BMP #### [facility] [address] [place] [address] Bri KarenEGFR-AF KUJNWIZH90 mL/min/1.75e2Cpfzcjjfzk low>=60The [facility] CenterComment on above:Performed By: #### BMP #### [facility] [address] [place] [address] Bri KarenEGFR-NON AF TYIKZNEX60 mL/min/1.45t4Tsnwumvvkz low>=60The [facility] CenterComment on above:Performed By: #### BMP #### [facility] [address] [place] [address] Bri KarenGlucose [Mass/Vol]132 mg/dLCritically allg99-449Csq [facility] CenterComment on above:Performed By: #### BMP #### [facility] [address] [place] [address] Bri KarenPotassium [Moles/Vol]4.0 mmol/LNormal3.4-5.0[facility] Comment on above:Performed By: #### BMP #### [facility] [address] [address] Bri KarenSodium [Moles/Vol]139 mmol/QIicmry827-595Ybt [facility] Comment on above:Performed By: #### BMP #### [facility] [address] [address] Bri KarenUrea nitrogen [Mass/Vol]20.0 mg/dLNormal9.0-20.0M[facility] Osteopathic ClinicComment on above:Performed By: #### BMP #### [facility] [address] [place] [address] Bri KarenUrea nitrogen/Creatinine [Mass ratio]11.0 mg/mgNoalThe [facility] CenterComment on above:Performed By: #### BMP #### [facility] [address] [place] [address] Bri KarenURINE MICROSCOPIC ONLYon 52-00-7255AHNJZMIRSRBMGZeraqmtcTDGN SEENMarietta Osteopathic ClinicComment on above:Performed By: #### JASON ERUR #### [facility] [address] [place] [address] Bri KarenBacteria identified Cx Nom (U)NOT INDICATEDNoalThMain Campus Medical CenterComment on above:Performed By: #### JASON ERUR #### [facility] [facility] [address] [place] [address] Bri KarenCASTNONE SEENNormalNONE SEENMarietta Osteopathic ClinicComment on above: Performed By: #### JASON ERUR #### [facility] [address] [place], [place] [id number] Bri KarenCrystals LM Nom (Urine sed)NONE SEENNormalNONE SEENMarietta Osteopathic ClinicComment on above:Performed By: #### JASON ERUR #### [facility] [address] [place], [place] [address] Bri KarenEpithelial cells LM Ql (Urine sed)RARENormalNONE SEEN /RAREMarietta Osteopathic ClinicComment on above:Performed By: #### JASON, ERUR #### [facility] [address], [place] [address] Bri NievesenMUCOUSNONE SEENNormalNONE SEENMarietta Osteopathic ClinicComhelen newberry [facility] on above: Performed By: #### JASON, ERUR #### [facility] [address] [id number] Bri McnallyTndywLZA6-51Aydxyghn9-9Agx [facility] CenterComment on above:Performed By: #### JASON, ERUR #### [facility] [address], [place] [address] Bri NievesenWBC0-2AbnormalNONE SEENMarietta Osteopathic ClinicComment on above: Performed By: #### JASON, ERUR #### [facility] [address] [id number] Bri Mcnally Vital Signs Date TimeVital SignValuePerforming GizpkfujtYuuwreso23-19-5660 10:22-0400Body .[address]07-24-2025 10:22-0400Body mass index (BMI) [Ratio]21.46 kg/m2Pmh [address] [place], [place] 1774407-24-2025 10:22-0400Body qtzsju73.[address] [place], [place] 1774401-22-2025 11:29-0500Body jwriiq450.2 cmDamion Nuñez MD Work Phone: [facility] HospitalShnjpupyui70-65-8185 11:29-0500Body mass index (BMI) [Ratio]23.49 kg/x3MvldvpDamion Nuñez MD Work Phone: [phone] Joseph Hospital WestAcownzzptp43-69-9744 11:29-0500Body .04 kgDamion Nuñez MD Work Phone: [facility] HospitalUmubxectux91-77-7167 11:29-0500Diastolic blood xvxtpwon80 mm[Hg]Damion Nuñez MD Work Phone: [facility] HospitalXzpultxvaz26-83-9476 11:29-0500Heart rate70 /min Damion Nuñez MD Work Phone: [facility] HospitalNclpompsff13-28-5179 11:29-0098JpC9% (BldA) [Mass fraction]95 %Damion Nuñez MD Work Phone: [phone])[facility]-584DoctorCSoutheast Missouri HospitalHahltfchjx28-69-5434 11:29-0500Systolic blood rsxecafs982 mm[Hg]Damion Nuñez MD Work Phone: [phone])[facility] [place], [place] [address]Lelmfrfpxj34-85-0812 11:12-0500Body tkcxgu266.2 cmDakavon Nuñez MD Work Phone: 1(051)[facility] [place], [place] [address]Kfbczxcdqj37-07-9567 11:12-0500Diastolic blood cuuxqura62 mm[Hg]Damion Nuñez MD Work Phone: 1(170)[facility] [place], [place] [address]Mllcsdngnj49-63-2268 11:12-0500Heart rate79 /min Damion Nuñez MD Work Phone: [phone])[facility] [place], [place] [address]Nydmgdmntz76-67-1813 11:12-7081RhQ1% (BldA) [Mass fraction]92 %Damion Nuñez MD Work Phone: [phone])[facility]-[address] [place], [place] [address]Wbbgphjulv28-51-0981 11:12-0500Systolic blood mm[Hg]Damion Nuñez MD Work Phone: [facility] Healthcare Encounters Encounter DateEncounter TypeCare ProviderFacilityStart: 01-26-2025 End: 53-07-3408Tzvhzpphja and management of inpatientSUSAN E [facility] Centertart: 01-12-2025 End: 52-92-0762Ntmsiaqeac and management of inpatientSUSAN E [facility] HospitalStart: 12-22-2024 End: 66-74-1336Nkdvfcs encounter procedurePmh Pre-Admission Testing [address] [place] [address] - Pre AdmitComment on above:Preop examination (Primary Dx); Other emphysema (CMS-HCC)Start: 12-22-2024 End: 75-26-0864Ptrzntnmozxpi examination donePmh [address] [place] [address] SystemStart: 12-22-2024 End: 63-52-9495codixujloeOHYGJ M SOMMERSUC Medical Center HospitalStart: 06-22-2024 End: 06-59-5065Mpbjjx flowsheetDamion Nuñez MD Work Phone: [facility] FMStart: 06-22-2024 End: 24-40-6122Adodxs flowsJong Nuñez MD Work Phone: [facility] CI FMStart: 06-22-2024 End: 51-16-0480Ukopi of hemosiderin, quantDamion Nuñez MD Work Phone: [facility] Work Phone: Start: 06-22-2024 End: 13-18-3466Dvueuwi encounter procedureDamion Nuñez MD Work Phone: noms CI FMComment on above:Routine general medical examination at health care facility (Primary Dx); ACP (advance care planning); Panlobular emphysema (CMS/HCC); Prostate cancer (CMS/HCC)Start: 06-22-2024 End: 15-33-0845qwswbvbzbeUPHOIA B BERRYNot AvailableStart: 05-16-2024 End: 12-54-9478yutxzilxnyCFUNXHTPChoctaw Nation Health Care Center – [facility] PPGStart: 04-27-2024 End: 28-20-7810Kafppktkkqvu care manage srvc 14 day dischargeDweston Nuñez MD Work Phone: noms CI FMComment on above:Closed fracture of right tibia and fibula with routine healing, subsequent encounter (Primary Dx); Panlobular emphysema (CMS/HCC); Prostate cancer (CMS/HCC)Start: 04-27-2024 End: 34-86-9649nogzkqzudcWQGHIV B BERRYNot AvailableStart: 04-26-2024 End: 33-45-6215zwhrnwqapyBQMKIQIKKindred Hospital - [facility] South HospitalStart: 43-05-3473Rtyfuaosk for other preprocedural examinationPAUL [facility] HospitalStart: 04-06-2024 End: 63-99-6328Hbtkbggjeq and management of inpatientDAMION NUÑEZUC Medical Center HospitalStart: 12-16-2023 End: 82-84-2654hjijhirlglGWOQYT B BERRYNot AvailableStart: 11-21-2021 End: 76-40-1808hxjacfkuhbQP DAMION TAYLORFacility:B7Xdmga: 12-21-2020 End: 38-16-3317hczjricfxpEP SANIA TREFacility:H1 Procedures DateProcedureProcedure DetailPerforming ClinicianStart: 33-57-2109Nbdso depression screening assessmentC[facility] Plan of Treatment DateCare ActivityDetailAuthorStart: 94-40-8487Pkydvez ScreeningTobacco Screening [facility] SystemStart: 01-22-2026Medicare Annual Wellness (AWV)Medicare Annual Wellness (AWV)[facility] HealthcareStart: 20-05-9364Iohdeabwmt Screening Depression ScreeningProMedica Fostoria Community Hospital SystemStart: 68-70-8463Zxyelyexa vaccinationInfluenza VaccineProMedica Fostoria Community Hospital SystemStart: 01-26-2025 End: 91-10-5307Qkogcmbmw to same day surgery figcnk5601/26/2025 12:45 PM EDT - 01/26/2025 1:30 PM EDT Surgery [facility] [address] [place] [address] Danette Santa MD [address] [place] [address] [id number] EXTRACTION CATARACT INTRAOCULAR LENS [76571 (CPT )][facility] SurgeryComment on above:EXTRACTION CATARACT INTRAOCULAR LENS [05159 (CPT )] Start: 50-99-9345Uahrsxrsao hospital visit by zqgzkdpby35/28/2025 12:45 PM EDT Hospital Encounter [facility] [address] [place] [address] Danette Santa MD [address] [place] [address] [facility] SurgeryStart: 01-26-2025 End: 55-30-9772Doqzka ctrc rmvl insj io lens prosth w/o ecpEXTRACTION CATARACT INTRAOCULAR LENS cataract left eye 01/26/2025 12:45 PM EDTFREMONT SURGERYStart: 01-25-2025 End: 32-31-8050ixnhakltir93/27/2025 3:40 PM EDT Support Visit [facility] Admit [address] [place] [address] [facility] AdmitStart: 01-12-2025 End: 14-37-8979Zbuyjlime to same day surgery lkmuxn7001/12/2025 12:45 PM EDT - 01/12/2025 1:30 PM EDT Surgery [facility] - Surgery [address] [facility] [address] Danette Santa MD [address] [place] [address] [phone] EXTRACTION CATARACT INTRAOCULAR LENS [90566 (CPT )][facility] - SurgeryComment on above:EXTRACTION CATARACT INTRAOCULAR LENS [89678 (CPT )] Start: 23-03-7641Seucimlrtf hospital visit by prnabftnl51/14/2025 12:45 PM EDT Hospital Encounter [facility] - Surgery [address] [address] Danette Santa MD [address] [place] [address] [phone] [facility] - SurgeryStart: 01-12-2025 End: 10-22-7834Oqrsly ctrc rmvl insj io lens prosth w/o ecpEXTRACTION CATARACT INTRAOCULAR LENS cataract right eye 01/12/2025 12:45 PM EDTFREMONT SURGERYStart: 12-19-2024 End: 26-65-5756Cfjyruz encounter eunbvqzjb66/21/2025 1:30 PM EDT Office Visit [facility] [address] [place] [address] Damion Nuñez MD [address] [facility] [address] [place] [address] [facility] FMStart: 07-17-2025Medicare Annual Wellness (AWV) Medicare Annual Wellness (AWV)[facility] HealthcareStart: 06-22-2024 End: 09-88-3127Zphusnx encounter procedureNOMS CI FMComment on above:Arrived Start: 02-48-4491Kjyqjzjzj vaccinationInfluenza Vaccine (#1)[facility] Healthcare Start: 77-17-0521Nuut Risk ScreeningFall Risk ScreeningProMedica F[facility] System Start: 51-44-1164Xptosnfufxygzo of varicella zoster vaccineZoster (Shingles) Vaccine (1 of 2)[facility] Hospitaltart: 19-46-3972KNjD,Tdap and Td Vaccines (1 -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
--- NOTE | 2025-05-11 09:44 | US_ITS ---
The [address] [address] Patient Name: NEGAR SABA MRN: [id number] date: 1940 Sex: M Assigned Patient Location: US Current Patient Location: US Accession/Order Number: [id number] Exam Date: 05/11/2025 09:45 Report Date: 05/11/2025 11:06 At the request of: MARII VAZQUEZ Procedure: US renal BI BILATERAL RENAL AND BLADDER ULTRASOUND CLINICAL HISTORY: Follow-up left hydronephrosis. Left renal, UPJ and bladder stones. COMPARISON: CT 02/08/2025 Estimation of renal size is approximately 9.8 cm on the right and 10.9 cm on the left. Bilateral renal cysts are present. The largest cyst on the right is at the upper pole measuring 2.3 x 2.5 x 2.3 cm. There is an echogenic focus with twinkle artifact associated with a cyst at the midpole on that side that might be a stone. On the left, the largest cyst is at the midpole measuring 8 mm. There is also a potential stone at the inferior pole on the left measuring 8 mm. . There is continued mild left hydronephrosis. There is no perinephric fluid. The urinary bladder is partially distended with a volume of 149 ml. Bladder stones are visualized measuring up to 14 mm in size. There is an enlarged prostate which contains calcification. US/US renal BI IMPRESSION: SMALL RENAL CYSTS AND POTENTIAL BILATERAL NEPHROLITHIASIS. CONTINUED MILD LEFT HYDRONEPHROSIS. URINARY BLADDER STONES. PROSTATE HYPERTROPHY Impression dictated by: Dali Castillo M.D. 05/11/2025 11:06 AM Dictation Location: [place] [address] Electronically authenticated by: [id number] Y Date: 05/11/2025 11:06
--- NOTE | 2025-05-11 09:44 | XR_ITS ---
The [address] [address] Patient Name: NEGAR SABA MRN: [id number] date: 1940 Sex: M Assigned Patient Location: US Current Patient Location: US Accession/Order Number: [id number] Exam Date: 05/11/2025 10:45 Report Date: 05/11/2025 11:10 At the request of: MARII VAZQUEZ Procedure: XR abdomen 1V SINGLE VIEW ABDOMEN COMPARISON: Ultrasound 05/11/[address] 02/08/2025 CLINICAL DATA: Renal and bladder stones Supine view the abdomen pelvis was obtained. There is scattered small and large bowel air, without disproportionate distention. There is no prominent colonic stool. No soft tissue masses are seen. There is a calcification at the lower pole of left kidney measuring approximately 7 mm size which may be a stone. This is more lateral than the UPJ stone at the time of the comparison CT and it may have been displaced back into a lower pole calyx of the kidney. No obvious radiopaque stones are seen on the right. There are multiple pelvic calcifications measuring up to 14 mm in size that may correlate with stones seen within the urinary bladder at the time of the CT evaluation. The bony structures are osteopenic. XR/XR abdomen 1V IMPRESSION: LEFT RENAL AND BLADDER CALCULI Impression dictated by: Dali Castillo M.D. 05/11/2025 11:10 AM Dictation Location: [place] [address] Electronically authenticated by: [id number] Y Date: 05/11/2025 11:10
== END 2025-05-11 09:34 | disposition home or self-care (01) ==
PROVIDERS: PCP Internal Medicine; Visit Provider Internal Medicine
DX: N20.0 Calculus of kidney (principal); N28.89 Other specified disorders of kidney and ureter; N13.30 Unspecified hydronephrosis
CPT/HCPCS: 74018; 76775

== ENCOUNTER 2025-05-30 10:36 | Outpatient (OUT) | payer MEDICARE, SELFPAY ==
--- OUTSIDE RECORDS SUMMARY | 2025-05-30 10:39 | XMS_ITS ---
Author Organization [facility] Address [id number] [address] [place] [address] Care Team Providers Care Dog Behaviorist Name Role Phone Damion Nuñez MD Primary Care Provider [phone] Active Problems ProblemNoted DateDiagnosed DateAcute respiratory failure with kwnbiev1704/08/2024 Other phfsiafep66/08/2024Closed fracture of right tibia and fibula, initial ibwfcoafb17/06/2024Calculus of upper urinary tract01/22/2021 Overview (01/22/2021): Added automatically from request for surgery [id number] Renal wenxvqehwyhlq98/19/2018 Overview (01/20/2022): ==== 01/20/2022 ==== most recent creatinine and GFR were normal. Basically 1st baseline creatinine 1.32. Patient really has not had primary medical care for years prior. Patient contact Dr. Nuñez is office. Copy of creatinine given the patient Prostate awuivj6612/08/2016 Overview (01/20/2022): ==== 01/20/2022 ==== PSA -2020 [...] prostate biopsy--confirms knowledge of such Mineral metabolism /27/2017 Overview (11/26/2016): +++++++++ 11/25/2016 ALLSCRIPTS SUMMARY +++++++++++ Patient with history of multiple stones very small. No family history. Mixed calcium oxalate stone. 2014 urine litho link relatively decent. Discussed adding citrate with lemon juice and increasing fluids. ==== 11/26/2016 ==== patient has been drinking fluids as well as taking lemon juice Renal cyst11/25/2016 Overview (01/20/2022): ==== 01/20/2022 ==== ultrasound stable status no indication for any further evaluation. ==== 07/15/2021 ==== stable simple appearing cyst was visualized on ultrasound +++++++++ 11/25/2016 ALLSCRIPTS SUMMARY +++++++++++ Spring 2013 incidentally found 2.2 cm left exophytic superior pole lesion with questionable calcification. Subsequent MRI demonstrates hyperdense cyst as well as smaller simple cyst. Rfleupfjhbjxtor96/06/2017 Overview (01/20/2022): ==== 01/20/2022 ==== no flank pain. elila is negative for stones and stable mild [...] medical expulsion therapy KUB in 2 weeks ifno progression then proceed with either ESWL or [...] and the stone was in the proximal ureter,patient was informed the ESWL is the procedure [...] plan information found. Lifetime Dose Tracking * ChemicalLifetime DoseAutomatic EntryManual FodlnOejxwfobljw43.12 mGy44.12 mGy0 mGy Resolved Problems ProblemNoted DateDiagnosed DateResolved DateUrinary ymelhcw15 Overview (11/25/2016): +++++++++ 11/25/2016 ALLSCRIPTS SUMMARY +++++++++++ Had urgency frequency but these symptoms resolved after stone passage.
--- OUTSIDE RECORDS SUMMARY | 2025-05-30 10:39 | XMS_ITS | Clinical Summary ---
Author Organization [facility] Address [address] [place] [address] Care Team Providers Care Design Tech Name Role Phone Damion Nuñez MD Unavailable [phone] Damion Nuñez MD Primary Care Provider [phone] Allergies Active AllergyReactionsCriticalityNoted SeizBueahsqoAwjwyzsOdzhc32/06/2017 Pt stated he felt edgy and uptight when he took T3. Medications MedicationSigDispense QuantityRefillsLast FilledStart DateEnd DateStatus tamsulosin (Flomax) 0.4 MG 24 hr capsule Indications:NephrolithiasisTake 1 capsule (0.4 mg) by mouth Daily 30 capsule 5006/08/2025ctive tamsulosin (Flomax) 0.4 MG 24 hr capsule Indications:NephrolithiasisTake 1 capsule (0.4 mg) by mouth Daily for 14 days 14 capsule Discontinued(Reorder) Active Problems ProblemNoted DateDiagnosed DatePanlobular xmcneteiw63/27/2024Pure hypercholesterolemia with target low density lipoprotein (LDL) cholesterol less than 130 mg/dL12/19/20221537Gpohsxppucrapcg12/10/2023Pain in right hand12/08/2022 Primary osteoarthritis of right hand12/08/2022rostate ontpqe0012/08/2022 Resolved Problems ProblemNoted DateDiagnosed DateResolved MwejMpdasioo01/10/202307/ Encounters DateTypeDepartmentCare LtjhQymibpzlvuy24/11/2025linisync Result Encounter [facility] External Department Unsolicited Damion Nuñez MD 5Clinisync Result Encounter [facility] External Department Unsolicited Damion Nuñez MD 05/09/2025Refill [facility] [place] [facility] [address] [place] [phone] Holli Noe, PHOTOVOLTAIC TESTING TECHNICIAN Qykothinnbqulpb71/24/2025Telephone [facility] [place] [facility] [address] [place] [address] Damion Nuñez MD 04/24/2025Telephone [facility] [place] [facility] [address] [place] [phone] Damion Nuñez MD 04/05/2025bstract [facility] [place] [facility] [address] [place] [phone] Damion Nuñez MD from Last 3 Months Family History RelationNameStatusCommentsFatherDeceasedMotherDeceased Social History Tobacco UseTypesPacks/DayYears UsedDateSmoking Tobacco: NeverSmokeless Tobacco: Never Tobacco Cessation:Counseling Given: Not Answered Alcohol UseStandard Drinks/WeekCommentsYes1 (1 standard drink = 0.6 oz pure alcohol)PHQ-2AnswerDate RecordedPatient Health Questionnaire-2 Tjvmk432 Sex and Gender InformationValueDate RecordedSex Assigned at BirthNot on file Legal EmsNmay0508/13/2022 8:23 PM EDTGender IdentityNot on fileSexual Orientation Not on file Last Filed Vital Signs Vital SignReadingTime TakenCommentsBlood Ihdxanub238/70006/22/2024 11:29 AM EST Wowvw250606/22/2024 11:29 AM ESTTemperature--Respiratory Rate--Oxygen Saturation 95%06/22/2024 11:29 AM ESTInhaled Oxygen Concentration--Mrlotd76 kg (150 lb) 06/22/2024 11:29 AM LUEHeckcs619.2 cm (5' 7 )06/22/2024 11:29 AM ESTBody Mass Index23.49006/22/2024 11:29 AM EST Plan of Treatment DateTypeDepartmentCare Team (Latest Contact Info)Sjknnmequmj35/05/2026 4:15 PM ESTOffice Visit [facility] [place] [facility] [address] [place] [address] Damion Nñuez MD [address] [place] [address] 12/04/2025 10:30 AM EDTOffice Visit [facility] [place] [facility] [address] [place] [address] Damion Nuñez MD [address] [facility] [address] [place] [address] Health MaintenanceDue DateLast DoneCommentsInfluenza Vaccine (#1)01/30/2025 Medicare Annual Wellness (AWV)6006/22/2024, 12/16/2023, 12/10/2022 Pneumococcal Vaccine: 65+ Years (1 of 2 - PCV)06/22/2025Postponed from 1960 (Patient Refused) Procedures Procedure NamePriorityDate/TimeAssociated DiagnosisCommentsXR ABDOMEN 1V 05/11/2025 11:10 AM EST US RENAL BI05/11/2025 11:06 AM EST from Last 3 Months Results * XR ABDOMEN 1V (05/11/2025 11:10 AM EST)Anatomical RegionLateralityModality OtherSpecimen (Source)Anatomical Location / LateralityCollection Method / VolumeCollection TimeReceived Time05/11/2025 11:10 AM EST Narrative 05/11/2025 11:12 AM EST [facility] ?[address] ? [place] [address] ?XRay Report ? Signed ? Patient: NEGAR SABA ?MR#: [id number] ?? : 1940 ?Acct:[id number] ?? Age/Sex: 84 / M ?ADM Date: 05/11/25 ?? Loc: US ? Attending Dr: DAMION NUÑEZ ? Ordering Physician: DAMION NUÑEZ ?? Date of Service: 05/11/25 ?? Procedure(s): XR abdomen 1V ?? Accession Number(s): [id number] ? cc: DAMION NUÑEZ ? [facility] ? [address] ? [place] [address] ? Patient Name: ?? NEGAR SABA ? MRN: [facility]:[id number] ? date: 1940 ?Sex: M ?? Assigned Patient Location: US ?? Current Patient Location: US ?? Accession/Order Number: [id number] ?? Exam Date: 05/11/2025 ??10:45 ?Report Date: 05/11/2025 ??11:10 ? At the request of: ?? DAMION ??TAYLOR ? Procedure: ??XR abdomen 1V ? SINGLE VIEW ABDOMEN ? COMPARISON: Ultrasound 05/11/[address] 02/08/2025 ? CLINICAL DATA: Renal and bladder stones ? Supine view the abdomen pelvis was obtained. ??There is scattered small and ?? large bowel air, without disproportionate distention. ??There is no prominent ?? colonic stool. ??No soft tissue masses are seen. ??There is a calcification at ?? the lower pole of left kidney measuring approximately 7 mm size which may be a ?? stone. ??This is more lateral than the UPJ stone at the time of the comparison ?? CT and it may have been displaced back into a lower pole calyx of the kidney. ? No obvious radiopaque stones are seen on the right. ??There are multiple pelvic ?? calcifications measuring up to 14 mm in size that may correlate with stones ?? seen within the urinary bladder at the time of the CT evaluation. ??The bony ?? structures are osteopenic. ? XR/XR abdomen 1V ?? IMPRESSION: ? LEFT RENAL AND BLADDER CALCULI ? Impression dictated by: Dali Castillo M.D. ??05/11/2025 11:10 AM ? Dictation Location: RADIO-PC-30 ? Electronically authenticated by: [id number] ??Y ?? Date: 05/11/2025 ??11:10 ? Dictated By: ?Dali Castillo M.D. ? Signed By: ?05/11/25 1112 ? DD/ 1110 ? TD/TT: ? Software Technician: Procedure Note Radiology, Radiologist, MD - 05/11/[address] [address] XRay Report Signed Patient: NEGAR SABA CMR#: [id number] : 1940cct:[id number] Age/Sex: 84 / MADM Date: 05/11/25 Loc: US Attending Dr: DAMION NUÑEZ Ordering Physician: DAMION NUÑEZ Date of Service: 05/11/25 Procedure(s): XR abdomen 1V Accession Number(s): [id number] cc: DAMION NUÑEZ [place] [address] Patient Name: NEGAR SABA MRN: [id number] date: 1940 Sex: M Assigned Patient Location: US Current Patient Location: US Accession/Order Number: [id number] Exam Date: 05/11/2025 10:45 Report Date: 05/11/2025 11:10 At the request of: DAMION NUÑEZ Procedure: XR abdomen 1V SINGLE VIEW ABDOMEN COMPARISON: Ultrasound 05/11/[address] 02/08/2025 CLINICAL DATA: Renal and bladder stones Supine view the abdomen pelvis was obtained. There is scattered small and large bowel air, without disproportionate distention. There is noprominent colonic stool. No soft tissue masses are seen. There is a calcificationat the lower pole of left kidney measuring approximately 7 mm size which maybe a stone. This is more lateral than the UPJ stone at the time of thecomparison CT and it may have been displaced back into a lower pole calyx of thekidney. No obvious radiopaque stones are seen on the right. There are multiplepelvic calcifications measuring up to 14 mm in size that may correlate withstones seen within the urinary bladder at the time of the CT evaluation. Thebony structures are osteopenic. XR/XR abdomen 1V IMPRESSION: LEFT RENAL AND BLADDER CALCULI Impression dictated by: Dali Castillo M.D. 05/11/2025 11:10 AM Dictation Location: [place] [address] Electronically authenticated by: [id number] Y Date: 1:10 Dictated By: Dali Castillo M.D. Signed By:05/11/25 1112 DD/ 1110 TD/TT: Software Technician: Authorizing ProviderResult TypeResult StatusDanikayleen B Nuñez MDCLINISYNC IMAGING Final Result * US RENAL BI (05/11/2025 11:06 AM EST)Anatomical RegionLateralityModalityOther Specimen (Source)Anatomical Location / LateralityCollection Method / Volume Collection TimeReceived Time05/11/2025 11:06 AM EST Narrative 05/11/2025 11:09 AM EST [facility] ?[address] ? [place] [address] ? Ultrasound Report ? Signed ? Patient: NEGAR SABA ?MR#: [id number] ?? : 1940 ?Acct:[id number] ?? Age/Sex: 84 / M ?ADM Date: 05/11/25 ?? Loc: US ? Attending Dr: DAMION NUÑEZ ? Ordering Physician: DAMION NUÑEZ ?? Date of Service: 05/11/25 ?? Procedure(s): US renal BI ?? Accession Number(s): [id number] ? cc: DAMION NUÑEZ ? [facility] ? [address] [facility] ? [place] [address] ? Patient Name: ?? NEGAR SABA ? MRN: [facility]:[id number] ? date: 1940 ?Sex: M ?? Assigned Patient Location: US ?? Current Patient Location: US ?? Accession/Order Number: [id number] ?? Exam Date: 05/11/2025 ??09:45 ?Report Date: 05/11/2025 ??11:06 ? At the request of: ?? DAMION ??TAYLOR ? Procedure: ??US renal BI ? BILATERAL RENAL AND BLADDER ULTRASOUND ? CLINICAL HISTORY: ??Follow-up left hydronephrosis. ??Left renal, UPJ and bladder ?? stones. ? COMPARISON: ??CT 02/08/2025 ? Estimation of renal size is approximately 9.8 cm ??on the right and 10.9 cm on ?? the left. ??Bilateral renal cysts are present. ??The largest cyst on the right ?? is at the upper pole measuring 2.3 x 2.5 x 2.3 cm. ??There is an echogenic ?? focus with twinkle artifact associated with a cyst at the midpole on that side ?? that might be a stone. ?On the left, the largest cyst is at the midpole ?? measuring 8 mm. ??There is also a potential stone at the inferior pole on the ?? left measuring 8 mm. ??. There is continued mild left hydronephrosis. ??There is ?? no perinephric fluid. ? The urinary bladder is partially distended with a volume of ??149 ml. ??Bladder ?? stones are visualized measuring up to 14 mm in size. ??There is an enlarged ?? prostate which contains calcification. ? US/ renal BI ?? IMPRESSION: ? SMALL RENAL CYSTS AND POTENTIAL BILATERAL NEPHROLITHIASIS. ? CONTINUED MILD LEFT HYDRONEPHROSIS. ? URINARY BLADDER STONES. ? PROSTATE HYPERTROPHY ? Impression dictated by: Dali Castillo M.D. ??05/11/2025 11:06 AM ? Dictation Location: RADIO-PC-30 ? Electronically authenticated by: [id number] ??Y ?? Date: 05/11/2025 ??11:06 ? Dictated By: ?Dali Castillo M.D. ? Signed By: ?05/11/251108 ? DD/ 1106 ? TD/TT: ? Software Technician: Procedure Note Radiology, Radiologist, MD - 05/11/2025 The [place] [id number] Ultrasound Report Signed Patient: NEGAR SABA CMR#: [id number] : 1940cct:[id number] Age/Sex: 84 / MADM Date: 05/11/25 Loc: US Attending Dr: DAMION NUÑEZ Ordering Physician: DAMION NUÑEZ Date of Service: 05/11/25 Procedure(s): US renal BI Accession Number(s): [id number] cc: DAMION NUÑEZ The [address] [address] Patient Name: NEGAR SABA MRN: [id number] date: 1940 Sex: M Assigned Patient Location: US Current Patient Location: US Accession/Order Number: [id number] Exam Date: 05/11/2025 09:45 Report Date: 05/11/2025 11:06 At the request of: DAMION NUÑEZ Procedure: US renal BI BILATERAL RENAL AND BLADDER ULTRASOUND CLINICAL HISTORY: Follow-up left hydronephrosis. Left renal, UPJ andbladder stones. COMPARISON: CT 02/08/2025 Estimation of renal size is approximately 9.8 cm on the right and 10.9 cmon the left. Bilateral renal cysts are present. The largest cyst on theright is at the upper pole measuring 2.3 x 2.5 x 2.3 cm. There is an echogenic focus with twinkle artifact associated with a cyst at the midpole on thatside that might be a stone. On the left, the largest cyst is at the midpole measuring 8 mm. There is also a potential stone at the inferior pole onthe left measuring 8 mm. . There is continued mild left hydronephrosis.There is no perinephric fluid. The urinary bladder is partially distended with a volume of 149 ml.Bladder stones are visualized measuring up to 14 mm in size. There is an enlarged prostate which contains calcification. US/US renal BI IMPRESSION: SMALL RENAL CYSTS AND POTENTIAL BILATERAL NEPHROLITHIASIS. CONTINUED MILD LEFT HYDRONEPHROSIS. URINARY BLADDER STONES. PROSTATE HYPERTROPHY Impression dictated by: Dali Castillo M.D. 05/11/2025 11:06 AM Dictation Location: [place] [address] Electronically authenticated by: [id number] Y Date: 1:06 Dictated By: Dali Castillo M.D. Signed By:05/11/25 1109 DD/ 1106 TD/TT: Software Technician: Authorizing ProviderResult TypeResult StatusDaniel Edel Nuñez MDCLINISYNC IMAGING Final Result from Last 3 Months Insurance Care Teams Team MemberRelationshipSpecialtyStart DateEnd Date Damion Nuñez MD [address] [facility] [address] [place] [address] PCP - Emilio LICEA06/01/21 Damion Nuñez MD [address] [address] [facility]12/10/22
--- OUTSIDE RECORDS SUMMARY | 2025-05-30 10:39 | XMS_ITS | Continuity of Care Document ---
Author Organization [facility] Address [address] [place] [address] Problems Unknown Problems Results Test Value / Unit Interpretation Reference Ran ge SARS-CoV-2 (COVID-19), RT-PC R/TMA[86850-2] Collected: 04/05/2021 02:58 PM Specimen Received: 04/06/2021 05:06 PM SARS-CoV-2 INTERPRETATION [85938-1] Negative Gayathri l See Note SARS-CoV-2 RNA [...] more likely when prevalence is high. SOURCE [90265-8] NASOPHARYNGEAL Normal Note: Methodology is Florin Barron Real-Time RT-PCR. The expected result or reference range is NEGATIVE (Not Detected). For more information regarding COVID-19 testing to include clinicalinformation, methodology detail, intended use, FDA authorization andrecommended fact sheets for patients or healthcare providers, see NewTest Announcement: SARS-CoV-2 (COVID-19) by NAAT at URL below (note,fact sheets are provided by method given in report:[email or web address]-communications/ Alternatively, see downloadable PDF fact sheet at:[email or web address]-23-IK-PCR Allergies, adverse reactions, alerts No known allergies and adverse reactions Medications No administered medications reported Vital Signs No vital signs reported Social History No smoking Hx information available
--- OUTSIDE RECORDS SUMMARY | 2025-05-30 10:39 | XMS_ITS | Clinical Summary ---
Author Organization M[facility] tem Address [id number] [address] 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 YwnepgbunavpxysxgvSevgvpan10/23/2017Pain TkmsgbiuGffglfiIeb78/23/2017 Pt does not know the name of the medicine. Medications MedicationSigDispense QuantityRefillsLast FilledStart DateEnd DateStatus albuterol (PROVENTIL HFA;VENTOLIN HFA) 90 mcg/actuation inhaler Indications:Chronic obstructive pulmonary disease, unspecified COPD type ([facility])Inhale 2 puffs every 6 (six) hours as needed for wheezing. 18 g 1114Active diphenhydrAMINE (BENADRYL) 25 mg capsule Take 1 capsule (25 mg total) by mouth nightly as needed for itching.Active APPLE CIDER VINEGAR ORAL Take 3 capsules by mouth in the morning.Active NON FORMULARY Take 12 each by mouth in the morning. Med Name: sun chlorello.Active NON FORMULARY Take 1 each by mouth in the morning. Med Name: immuno 150.Active Active Problems ProblemNoted DateDiagnosed DateAcute respiratory failure with qbtyusy5704/08/2024 Other xwbymzrej02/08/2024Closed fracture of right tibia and fibula, initial /06/2024Calculus of upper urinary tract01/22/2021 Overview (01/22/2021): Added automatically from request for surgery [id number] Renal fxcgxwxvzgoze92/ Overview (01/20/2022): ==== 01/20/2022 ==== most recent creatinine and GFR were normal. Basically 1st baseline creatinine 1.32. Patient really has not had primary medical care for years prior. Patient contact Dr. Nuñez is office. Copy of creatinine given the patient Prostate qcilln2112/08/2016 Overview (01/20/2022): ==== 01/20/2022 ==== PSA -2020 6.9.----8.. September 2021. ==== 07/15/2021 ==== I again went through patient has well as significant other the rationale for active surveillance the need for periodic biopsies revealed discussed imaging study with MRI. Biopsy potentially under anesthesia. He understands all this for an wishes only to follow with PSA potentialrectal exams in the future. ==== 01/21/2021 ==== [...] prostate biopsy--confirms knowledge of such Mineral metabolism chpyjpsw10/27/2017 Overview (11/26/2016): +++++++++ 11/25/2016 ALLSCRIPTS SUMMARY +++++++++++ [...] cyst as well as smaller simple cyst. Gsawdjtuydoisxv43/06/2017 Overview (01/20/2022): ==== 01/20/2022 ==== no flank [...] Therefore CT scan to confirm. Resolved Problems ProblemNoted DateDiagnosed DateResolved DateUrinary dighwin62 Overview (11/25/2016): +++++++++ 11/25/2016 ALLSCRIPTS SUMMARY +++++++++++ Had urgency frequency but these symptoms resolved after stone passage. Family History RelationNameStatusCommentsFatherDeceasedMotherDeceased Social History Tobacco UseTypesPacks/DayYears UsedDateSmoking Tobacco: XjroisXxpcbwgygf1Ofvx: 01/12/2002Smokeless Tobacco: Never Tobacco Cessation:Counseling Given: Not Answered Comments:quit 20 years ago. Alcohol UseStandard Drinks/WeekCommentsYes0 (1 standard drink = 0.6 oz pure alcohol)occasionalAHC UtilitiesAnswerDate RecordedIn the past 12 months has the [employer], gas, oil, or water [employer] threatened to shut off services in your home?No04/07/2024Social Connection and Isolation PanelAnswerDate RecordedIn a typical week, how many times do you talk on the phone with family, friends, or neighbors?Once a week04/06/2024How often do you get together with friends or relatives?More than three times a week04/06/2024How often do you attend temple or congregational services?Never04/06/2024o you belong to any clubs or organizations such as temple groups, unions, fraternal or athletic groups, or school groups?No 04/06/2024How often do you attend meetings of the clubs or organizations you belong to?Never04/06/2024re you , , , , never , or living with a partner?Keufkss5404/06/2024UDIT-CAnswerDate RecordedQ1: How often do you have a drink containing alcohol?Monthly or less04/06/2024Q2: How many drinks containing alcohol do you have on a typical day when you are drinking?1 or Q3: How often do you have six or more drinks on one occasion?Never04/06/2024Overall Financial Resource Strain (CARDIA)AnswerDate RecordedHow hard is it for you to pay for the very basics like food, housing, medical care, and heating?Not hard at all04/07/2024HQ-2AnswerDate RecordedTotal Wrlgi15306/06/2023[facility] [place] [facility] Occupational [facility] - Occupational Stress QuestionnaireAnswerDate RecordedDo you feel stress - tense, restless, nervous, or anxious, or unable to sleep at night because yourmind is troubled all the time - these days?Only a vqmpbt6604/06/2024Exercise Vital SignAnswerDate Recorded On average, how many days per week do you engage in moderate to strenuous exercise (like a brisk walk)?7 days04/06/2024On average, how many minutes do you engage in exercise at this level?60 min04/06/2024RAPARE - TransportationAnswer Date RecordedIn the past 12 months, has lack of transportation kept you from medical appointments or from getting medications?No04/07/2024In the past 12 months, has lack of transportation kept you from meetings, work, or from getting things needed for daily living?No04/07/2024Housing InstabilityAnswerDate RecordedAre you worried or concerned that in the next two months you may not have stable housing that you own, rent or stay in as a part of a household?No 04/07/2024hildcareAnswerDate RecordedDo problems getting school childcare attendant make it difficult for you to work or study?No04/06/2024EmploymentAnswerDate RecordedDo you need help finding a local career center and/or a training program?No 04/06/2024Hunger ScreeningAnswerDate RecordedWithin the past 12 months we worried whether our food would run out before we got money to buy more.Never True04/07/2024Within the past 12 months the food we bought just didn't last and we didn't have money to get more.Never True04/07/2024urpose - LifeAnswerDate RecordedI have a purpose and direction in my life.Agree04/06/2024Sex and Gender InformationValueDate RecordedSex Assigned at BirthNot on fileLegal SexMale 01/04/2015 11:33 AM EDTGender IdentityNot on fileSexual OrientationStraight 04/06/2024 6:11 PM EST Last Filed Vital Signs Vital SignReadingTime TakenCommentsBlood Idrmkvii462/8108 12:33 PM EDT Ljxts341401/26/2025 12:33 PM ZBNTlvjcjsckvd46.4 ??C (97.5 ??F)01/26/2025 12:15 PM EDTRespiratory Cgot880401/26/2025 12:33 PM EDTOxygen Lgyefpqkdz52%01/26/2025 12:33 PM EDTInhaled Oxygen Concentration--Wtotfe96.6 kg (138 lb)01/26/2025 11:00 AM RLGKrrhib427.2 cm (5' 7 )01/26/2025 11:00 AM EDTBody Mass Index21.61001/26/2025 11:00 AM EDT Plan of Treatment Health MaintenanceDue DateLast DoneCommentsDTaP,Tdap and Td Vaccines (1 - Tdap) 1960Zoster (Shingles) Vaccine (1 of 2)1960Fall Risk Screening 2006RSV ( or age 60+ yrs) (1 - 1-dose 75+ series)2016 Influenza Oykbsfg3001/30/2025Depression Kxfzmovry83/06/33500506/06/2023Tobacco Avjuxvbzl76bdominal Aortic Aneurysm (AAA) ScreenCompleted 01/06/2022, 06/11/2021, 04/09/2021 Goals GoalPatient Goal TypeAssociated ProblemsRecent ProgressPatient-Stated?Author Home with OP therapy Jeanette Wyatt RN Note: Evaluation of progress towards goal: Patient plans to return home with OP therapy. Medical Devices ImplantedTypeAreaManufacturerDevice IdentifierShelf Expiration DateModel / Serial / LotClareon Vivity Toric Iol Implanted:Qty: 1 on 01/12/2025 by Danette Santa MD at [facility] [employer]03/10/2027CCWET4 / [id number] / Clareon Vivtg Toric Uv Iol Implanted:Qty: 1 on 01/26/20[facility] [employer]06/30/2027CCWET4 / [id number] / NANail Im 345mm 12mm Mr Conditional Tn Adv Ti Al Vndm Pk Adlt - Sna - [id number] Implanted:Qty: 1 on 04/07/2024 [facility]: TibiaDEPUY SYNTHES SALES.043.435S / NA / [id number] Bn 40mm 5mm Lck X25 Strl Im Nl - Sna - [id number] Implanted:Qty: 1 on 04/07/2024 [facility]: TibiaDEPUY SYNTH[employer] SALES.045.040S / NA / [id number] Bn 36mm 5mm Lck X25 Im Nl - Sna - [id number] Implanted:Qty: 1 on 04/07/2024 [facility]: TibiaDEPUY SYNTHES .045.036S / NA / [id number] Bn 34mm 5mm Lck Strl Im Nl - Sna - [id number] Implanted:Qty: 1 on 04/07/2024 by [facility]: TibiaDEPU[employer] SY[employer] SALES.045.034S / NA / [id number] Bn 44mm 5mm Lck X25 Im Nl - Sna - [id number] Implanted:Qty: 1 on 04/07/2024 by [facility]: TibiaDEPU[employer] SY[employer] SALES.045.044S / NA / [id number] Bn 34mm 5mm Lck Strl Im Nl - Sna - [id number] Implanted:Qty: 1 on 04/07/2024 by [facility]: TibiaDEPU[employer] SY[employer]TH[employer] SALES.045.034S / NA / [id number] Bn 38mm 4mm 5mm 1[address]mm [address] Slf Drl Sm Hex Sckt Ss . - Sna - [id number] Implanted:Qty: 1 on 04/07/2024 by [facility]: TibiaDEPUY SYNTHES [id number] / NA / NAStent Percuflex 6x28 - [id number] Implanted:Qty: 1 on 02/04/2017 by [facility]ello [facility]: UreterBoston [id number] / NA / [id number]rr IdentifierShelf Expiration DateModel / Serial / LotStent Uret 6fr 28cm Pgtl Crv Tpr Tip Bldr Mrk Lp Lg Inr Lum Rpl [id number] Phs Ias [place] [id number] - Sna - [id number] Implanted:Qty: 1 on 03/25/2021 by Yvon Tello MD at [facility] Explanted:Qty: 1 on 04/08/2021 [facility] UreterBOSTON SCIENTIFIC [id number] / NA / [id number] Procedures Procedure NamePriorityDate/TimeAssociated DiagnosisCommentsUS RETROPERITONEAL CMCRHLVMXrocmac89/08/2022 1:03 PM EDT Nephrolithiasis from Last 3 Months or Most Recently Relevant to Health Maintenance Results * Ultrasound retroperitoneal complete (01/06/2022 1:03 PM EDT)Anatomical Region LateralityModalityPelvis, BodyUltrasoundSpecimen (Source)Anatomical Location / LateralityCollection Method / VolumeCollection TimeReceived Time01/06/2022 2:53 PM EDT Narrative 01/06/2022 2:56 PM EDT History: Kidney stones Exam/Technique: ??Multiple sonographic images of both kidneys were obtained. Comparison: ??06/11/2021 Findings: ??The kidneys normal in size with right measuring 10.5 x 4.9 x 6.0 cm and left measuring 10.9 x 3.9 x 4.9 cm. Mild pelvocaliectasis of the left kidney is again seen and is unchanged. ??No right-sided hydronephrosis is seen. No shadowing calculi or solid renal masses were seen either kidney. Stable right renal cysts are unchanged requiring no further evaluation. Urinary bladder was sent to a volume of 204.25 mL. ??No mucosal abnormalities are seen. ??Ureteral jets are visualized bilaterally. Prostate gland is enlarged measuring 5.8 x 4.9 x 4.5 centers. IMPRESSION: ?? 1. ??Stable left pelvocaliectasis. 2. ??Otherwise normal renal and urinary bladder ultrasound. ?? Finalized by Grant Gold MD on 01/06/2022 [...] Grant Gold MD on 01/06/2022 2:56 PM Authorizing ProviderResult TypeResult StatusMicwilliam WADEG US ORDERABLES Final Result from Last 3 Months or Most Recently Relevant to Health Maintenance Insurance Advance Directives TypeDate RecordedPatient RepresentativeExplanationDurable Power of Club Licensee 04/18/2024 2:07 PM * Full Code (Latest Code Status on File) Date ActivatedDate EchmytqsqptCgwcgrro92/6/2024 8:11 PM04/10/2024 2:11 PM Care Teams Team MemberRelationshipSpecialtyStart DateEnd Date Damion Nuñez MD [address] [facility] [address] [place] [address] PCP - GeneralInternal Medicine02/17/18
--- OUTSIDE RECORDS SUMMARY | 2025-05-30 10:40 | XMS_ITS | CCD ---
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 g/dLNormal3.2-5.3ProMedica [facility] The Valley HospitalComment on above: Performed By: #### 52991-4, CBCA, CMP ####[facility] ([id number])[address] [place] [address] 25673JMX [Catalytic activity/Vol]78 U/CKgoenf16-995HcsXysghbMansfield HospitalComment on above: Performed By: #### 15882-8, CBCA, CMP ####[facility] ([id number])[address] [place] [address] [place] 40738URB [Catalytic activity/Vol]17 U/LNormal0-40ProCarrollton Regional Medical CenterComment on above: Performed By: #### 20597-0, CBCA, CMP ####[facility] ([id number])[address] [place] [address] 59250Zrksy gap [Moles/Vol]11 mmol/LNormal5-15ProCarrollton Regional Medical CenterComment on above: Performed By: #### 99139-2, CBCA, CMP ####[facility] ([id number])[address] [place] [address], [place] 37[address]UCX [Catalytic activity/Vol]49 U/LHigh0-41ProCarrollton Regional Medical CenterComment on above:Performed By: #### 09846-7, CBCA, CMP ####[facility] ([id number])[address] [place] [address], [place] [address]Guispybju [Mass/Vol]0.6 mg/dLNormal 0.3-1.2PJoint Township District Memorial HospitalComment on above:Performed By: #### 13726-4, CBCA, CMP ####[facility] ([id number])[address] [place] [address], [place] [address]Laxssmv [Mass/Vol]8.6 mg/dLNormal8.5-10.5PJoint Township District Memorial HospitalComment on above:Performed By: #### 42181-4, CBCA, CMP ####[facility] ([id number])[address] [place] [address], [place] 480[address]Zxifsmqd [Moles/Vol]101 mmol/AYrhehi65-518TbuHlxnxbMansfield HospitalComment on above:Performed By: #### 17784-8, CBCA, CMP ####[facility] ([id number])[address] [place] [address], [place] 30883GP0 [Moles/Vol]24 mmol/OUeelis26-96AbuXjknylJoint Township District Memorial HospitalComment on above:Performed By: #### 61359-8, CBCA, CMP ####[facility] ([id number])[address] [place] [address], [place] 410[address]Hijphxwbov [Mass/Vol]1.53 mg/dLHigh0.70-1.20[facility] Comment on above:Result Comment: METHOD TRACEABLE TO IDMS STANDARDPerformed By: #### 52703-0, CBCA, CMP ####[facility] ([id number])[address] [place] [address] 85509MFP/1.73 sq M.predicted among non-blacks MDRD (S/P/Bld) [Vol rate/Area]45 mL/min/{1.73_m2}Low>59ProCarrollton Regional Medical CenterComment on above:Result Comment: Reported eGFR is based on the CKD-EPI 2020 equation that does not use a race coefficient.Performed By: #### 83568-7JÚNIOR Parker, CMP ####[facility] ([id number])[address] [place] [address] 00968Zsxeuko [Mass/Vol]144 mg/qYOkxg81-66FdqPoblqtCarrollton Regional Medical CenterComment on above:Performed By: #### 00258-7JÚNIOR Day, CMP ####[facility] ([id number])[address] [place] [address] 36913Aawcqoeie [Moles/Vol]4.4 mmol/LNormal3.5-5.0ProCarrollton Regional Medical CenterComment on above: Performed By: #### 17551-1, CBCA, CMP ####[facility] ([id number])[address] [place] [address] 40508Zkirret [Mass/Vol]5.8 g/dLLow6.0-8.0ProCarrollton Regional Medical CenterComment on above:Performed By: #### 17922-2, CBCA, CMP ####[facility] ([id number])[address] [place] [address] 63364Poxahl [Moles/Vol]136 mmol/LNormal 134-146ProCarrollton Regional Medical CenterComment on above:Performed By: #### Ana CBCA, CMP ####[facility] ([id number])[address] [place] [address] 20422Ewty nitrogen [Mass/Vol]33 mg/dLHigh5-27ProCarrollton Regional Medical CenterComment on above:Performed By: #### 22888-8, CBCA, CMP ####[facility] ([id number])[address] [place] [address] 73772DMUGRQINJzl 17-90-9247Icgyhcjce [Mass/Vol]2.2 mg/dLNormal1.8-2.6Mansfield HospitalComment on above:Performed By: #### 56191-0, CBCA, CMP ####[facility] ([id number])[address] [place] [address] 91533YL CHEST 1 VWon 87-51-0288CB CHEST 1 VWXR CHEST 1 VW Clinical history: Hypoxia and shortness of breath Views: 1 Comparison: 04/06/2024 Findings/Impression: 1. Lungs hyperinflated. No volume loss or consolidation. Heart and mediastinal structures normal. No pleural effusion or pneumothorax. 2. Advanced chronic lung disease without interval change. Finalized by Ronald Mendez MD on 04/08/2024 2:10 PMNormalMansfield Hospital CBC AND AUTO DIFFon 00-82-4252VVEYPPNB BASOPHIL0.0 X10E9/LNormal0.0-0.2PJoint Township District Memorial HospitalComment on above:Performed By: #### 31253-1, CBCA, CMP #### [facility] ([id number]) [address] [place] [address] 98431KZGVWWOB NEUTROPHIL9.9 X10E9/LHigh1.5-6.6ProCarrollton Regional Medical CenterComment on above:Performed By: #### 76180-2, CBCA, CMP #### [facility] ([id number]) [address] [place] [address] 37702Izwsntvpb/100 WBC (Bld)0.3 %NormalMansfield Hospital Comment on above:Performed By: #### 54367-4, CBCA, CMP #### [facility] ([id number]) [address] [place] [address] 02749Wodigabjtgl (Bld) [#/Vol]0.0 10*3/uLNormal0.0-0.4M[facility]field HospitalComment on above:Performed By: #### 48243-7, CBCA, CMP #### [facility] ([id number]) [address] [place] [address] 87357Ljptvpualph/100 WBC (Bld)0.2 %NormalProCarrollton Regional Medical Center Comment on above:Performed By: #### 22850-4, CBCA, CMP #### [facility] ([id number]) [address] [place] [address] 08628Qlkqhpokxmu distribution width (RBC) [Ratio]13.9 %Normal 11.5-15.0Mansfield HospitalComment on above:Performed By: #### 78974-1, CBCA, CMP #### [facility] ([id number]) [address] [place] [address] 43904Wilrlkduls (Bld) [Volume fraction]40.2 %Yyexwo47-19WuvHjssvdCarrollton Regional Medical CenterComment on above:Performed By: #### 95977-1, CBCA, CMP #### [facility] ([id number]) [address] [place] [address] 80406Hryncaifpc (Bld) [Mass/Vol]13.4 g/gSCxpkfp89.0-17.0M[facility]field HospitalComment on above:Performed By: #### 25390-5, CBCA, CMP #### [facility] ([id number]) [address] [place] [address] 44809Phyyydjnvjd (Bld) [#/Vol]1.3 10*3/uLNormal1.0-3.5PJoint Township District Memorial HospitalComment on above:Performed By: #### 11114-5, CBCA, CMP #### [facility] ([id number]) [address] [place] [address] 92445Yipziktfqjr/100 WBC (Bld)10.1 %[facility] Comment on above:Performed By: #### 34221-9, CBCA, CMP #### [facility] ([id number]) [address] [place] [address] 64656QGH (RBC) [Entitic mass]30.6 puPnajol50-49RkqOepvfdMansfield HospitalComment on above:Performed By: #### 09737-8, CBCA, CMP #### [facility] ([id number]) [address] [place] [address] 02285ZTIC (RBC) [Mass/Vol]33.2 g/kADqorkl60-70ByiWeeqrlCarrollton Regional Medical CenterComment on above:Performed By: #### 64476-6, CBCA, CMP #### [facility] ([id number]) [address] [place] [address] 68378QNR (RBC) [Entitic vol]92 oMAfujfx06-831RxvGgwphc [facility] HospitalComment on above:Performed By: #### 60342-8, CBCA, CMP #### [facility] ([id number]) [address] [place] [address] 69484Hbljqzgfb (Bld) [#/Vol]1.4 10*3/uLHigh0-0.9M[facility]field HospitalComment on above:Performed By: #### 19174-4, CBCA, CMP #### [facility] ([id number]) [address] [place] [address] 45416Sfzgzvgzx/100 WBC (Bld)11.3 %[facility] Comment on above:Performed By: #### 64415-7, CBCA, CMP #### [facility] ([id number]) [address] [place] [address] 33118Kovbdjqjhwl/100 WBC (Bld)78.1 %[facility] Comment on above:Performed By: #### 83759-3, CBCA, CMP #### [facility] ([id number]) [address] [place] [address] 54843Pwdnqgrp mean volume (Bld) [Entitic vol]7.8 fLNormal7-12 ProMArrowhead Regional Medical CenterComment on above:Performed By: #### 81453-7, CBCA, CMP #### [facility] ([id number]) [address] [place] [address] 46600Tvjkgltww (Bld) [#/Vol]261 10*3/hORdnnsi470-664HljMpmvvdMansfield HospitalComment on above:Performed By: #### 62693-5, CBCA, CMP #### [facility] ([id number]) [address] [place] [address] 08712MYF COUNT4.37 X10E12/LNormal4.10-5.70[facility] Comment on above:Performed By: #### 66777-6, CBCA, CMP #### [facility] ([id number]) [address] [place] [address] 19431UDE (Bld) [#/Vol]12.6 10*3/uLHigh4.0-11.0M[facility]field HospitalComment on above:Performed By: #### 26071-1, CBCA, CMP #### [facility] ([id number]) [address] [place] [address] 38240MIJSFXHHEBONO METABOLIC PANELon 98-82-7749Klotkyw [Mass/Vol]3.5 g/dLNormal3.2-5.3PJoint Township District Memorial HospitalComment on above:Performed By: #### 65240-9, CBCA, CMP ####[facility] ([id number])[address] [place] [address] 75096BJK [Catalytic activity/Vol]93 U/LNormal 39-130ProCarrollton Regional Medical CenterComment on above:Performed By: #### 39892-5, CBCA, CMP ####[facility] ([id number])[address] [place] [address], [place] [address]38[address]NOL [Catalytic activity/Vol]21 U/LNormal0-40ProCarrollton Regional Medical CenterComment on above:Performed By: #### 94346-7, CBCA, CMP ####[facility] ([id number])[address] [place] [address], [place] 17[address]Doqaa gap [Moles/Vol]9 mmol/LNormal5-15ProCarrollton Regional Medical CenterComment on above:Performed By: #### 27448-8, CBCA, CMP ####[facility] ([id number])[address] [place] [address], [place] 02131VBO [Catalytic activity/Vol]45 U/LHigh0-41ProCarrollton Regional Medical CenterComment on above:Performed By: #### 64076-4, CBCA, CMP ####[facility] ([id number])[address] [place] [address], [place] 56[address]Pcqsxxokf [Mass/Vol]0.6 mg/dLNormal0.3-1.2PJoint Township District Memorial HospitalComment on above: Performed By: #### 80053-9, CBCA, CMP ####[facility] ([id number])[address] [place] [address], [place] 708[address]Gxovpbz [Mass/Vol]9.0 mg/dLNormal8.5-10.5PJoint Township District Memorial HospitalComment on above: Performed By: #### 41297-4, CBCA, CMP ####[facility] ([id number])[address] [place] [address], [place] 67[address]Skpdhhdb [Moles/Vol]106 mmol/JGzcmlx68-445DkzQhoypyCarrollton Regional Medical CenterComment on above: Performed By: #### 23387-9JÚNIOR, CMP ####[facility] ([id number])[address] [place] [address], [place] 41757QI4 [Moles/Vol]24 mmol/ZPvwmfg46-65WajXxmigm [facility] HospitalComment on above:Performed By: #### 38228-0, CBCA, CMP ####[facility] ([id number])[address] [place] [address], [place] 39541Grxqwphbrv [Mass/Vol]1.31 mg/dLHigh0.70-1.20 ProMedicFremont Memorial HospitalComment on above:Result Comment: METHOD TRACEABLE TO IDMS STANDARDPerformed By: #### 56712-5JÚNIOR Day, CMP ####[facility] ([id number])[address] [place] [address] 36883LVU/1.73 sq M.predicted among non-blacks MDRD (S/P/Bld) [Vol rate/Area]54 mL/min/{1.73_m2} Low>59ProCarrollton Regional Medical CenterComment on above:Result Comment: Reported eGFR is based on the CKD-EPI 2020 equation that does not use a race coefficient.Performed By: #### 81331-1, CBCA, CMP ####[facility] ([id number])[address] [place] [address], [place] 14[address]Wwgfpij [Mass/Vol]139 mg/lSRdjg51-97HzkJozptaCarrollton Regional Medical CenterComment on above:Performed By: #### 38863-0, CBCA, CMP ####[facility] ([id number])[address] [place] [address], [place] 49[address]Tnrzwgwft [Moles/Vol]4.4 mmol/LNormal3.5-5.0ProCarrollton Regional Medical CenterComment on above: Performed By: #### 58688-1JÚNIOR, CMP ####[facility] ([id number])[address] [place] [address], [place] 326[address]Duiznjy [Mass/Vol]6.1 g/dLNormal6.0-8.0M[facility]field HospitalComment on above: Performed By: #### 37553-7, CBCA, CMP ####[facility] ([id number])[address] [place] [address], [place] [id number] [Moles/Vol]139 mmol/ZSbdekf644-346GsxRakypm [facility] HospitalComment on above: Performed By: #### 65319-7, CBCA, CMP ####[facility] ([id number])[address] [place] [address], [place] 399[address]Rwxq nitrogen [Mass/Vol]26 mg/dLNormal5-27ProCarrollton Regional Medical CenterComment on above:Performed By: #### 42369-0, CBCA, CMP ####[facility] ([id number])[address] [place] [address], [place] 65[address]ZLLIBMFDKqm 79-61-3151Wslespgbo [Mass/Vol]2.2 mg/dLNormal1.8-2.6ProCarrollton Regional Medical CenterComment on above: Performed By: #### 84262-1, CBCA, CMP ####[facility] ([id number])[address] [place] [address], [place] [id number] ANKLE RT MIN 3 VWSon 60-52-3047ZG ANKLE RT MIN 3 VWSXR ANKLE RT [...] by Nickolas Bonilla MD on 04/07/2024 1:07 PMNormalProCarrollton Regional Medical CenterBASIC METABOLIC PANLon 61-75-1877Xznfv gap [Moles/Vol]9 mmol/LNormal5-15 [facility] HospitalComment on above:Performed By: #### JÚNIOR ROSE #### [facility] ([id number]) [address] [place] [address] 50430Xcnbrft [Mass/Vol]9.2 mg/dLNormal8.5-10.5PJoint Township District Memorial HospitalComment on above:Performed By: #### MILTON, JÚNIOR #### [facility] ([id number]) [address] [place] [address], [place] [address]Rjzybsvj [Moles/Vol]104 mmol/UTnmaqd16-816BksHzzlnoMansfield HospitalComment on above:Performed By: #### MILTON, JÚNIOR #### [facility] ([id number]) [address] [place] [address] 55601XV7 [Moles/Vol]25 mmol/AMlypcx61-29VqtGeopkbJoint Township District Memorial Hospital Comment on above:Performed By: #### JÚNIOR ROSE #### [facility] ([id number]) [address] [place] [address] 08212Vpctainbyx [Mass/Vol]1.30 mg/dLHigh0.70-1.20M[facility]field HospitalComment on above:Result Comment: METHOD TRACEABLE TO IDMS STANDARD Performed By: #### MILTON, JÚNIOR #### [facility] ([id number]) [address] [place] [address] 03928QQB/1.73 sq M.predicted among non-blacks MDRD (S/P/Bld) [Vol rate/Area]55 mL/min/{1.73_m2}Low>59ProCarrollton Regional Medical CenterComment on above: Result Comment: Reported eGFR is based on the CKD-EPI 2020 equation that does not use a race coefficient.Performed By: #### MILTON, JÚNIOR #### [facility] ([id number]) [address] [place] [address] 97499Vbngxab [Mass/Vol]170 mg/fSNjra35-40YunIypygqMansfield Hospital Comment on above:Performed By: #### MILTON, CBCA #### [facility] ([id number]) [address] [place] [address] 32247Nyepawbgm [Moles/Vol]3.9 mmol/LNormal3.5-5.0ProCarrollton Regional Medical CenterComment on above:Performed By: #### MILTON, CBCA #### [facility] ([id number]) [address] [place] [address] 67436Lsqtmo [Moles/Vol]138 mmol/YHhliom621-778GqtZikwaf [facility] HospitalComment on above:Performed By: #### MILTON, CBCA #### [facility] ([id number]) [address] [place] [address] 66149Cgma nitrogen [Mass/Vol]15 mg/dLNormal5-27ProCarrollton Regional Medical CenterComment on above:Performed By: #### MILTON, CBCA #### [facility] ([id number]) [address] [place] [address], [place] [id number] AND AUTO DIFFon 64-27-0485TTLVEKYE BASOPHIL0.0 X10E9/L Normal0.0-0.2ProMedPico Rivera Medical CenterComment on above:Performed By: #### MILTON, CBCA #### [facility] ([id number]) [address] [place] [address] 49025AVOCAYIF ZDDMQRKTPA29.9 X10E9/LHigh1.5-6.6ProCarrollton Regional Medical CenterComment on above:Performed By: #### MILTON, CBCA #### [facility] ([id number]) [address] [place] [address] 74790Zplmrqsrr/100 WBC (Bld)0.2 %NormalMansfield Hospital Comment on above:Performed By: #### MILTON, CBCA #### [facility] ([id number]) [address] [place] [address] 68031Wfzyromcves (Bld) [#/Vol]0.0 10*3/uLNormal0.0-0.4M[facility]field HospitalComment on above:Performed By: #### MILTON, CBCA #### [facility] ([id number]) [address] [place] [address] 83832Decgpuuvhsa/100 WBC (Bld)0.1 %NormalProCarrollton Regional Medical Center Comment on above:Performed By: #### MILTON, CBCA #### [facility] ([id number]) [address] [place] [address] 17789Adaahupfldv distribution width (RBC) [Ratio]13.8 %Normal 11.5-15.0ProCarrollton Regional Medical CenterComment on above:Performed By: #### MILTON, CBCA #### [facility] ([id number]) [address] [place] [address] 22053Gruyhqlsbb (Bld) [Volume fraction]46.7 %Eeshuk51-42WrwUfrpvgCarrollton Regional Medical CenterComment on above:Performed By: #### MILTON, CBCA #### [facility] ([id number]) [address] [place] [address] 77142Pqvvfklwfx (Bld) [Mass/Vol]15.5 g/oBImsokc34.0-17.0ProCarrollton Regional Medical CenterComment on above:Performed By: #### MILTON, CBCA #### [facility] ([id number]) [address] [place] [address] 62840Usfwxjqgzkv (Bld) [#/Vol]0.9 10*3/uLLow1.0-3.5PJoint Township District Memorial HospitalComment on above:Performed By: #### MILTON, CBCA #### [facility] ([id number]) [address] [place] [address] 12409Otenakuxybn/100 WBC (Bld)5.0 %[facility] Comment on above:Performed By: #### BMP, CBCA #### [facility] ([id number]) [address] [place] [address] 54431CES (RBC) [Entitic mass]31.0 gdLahuze99-37SenCfpifkMansfield HospitalComment on above:Performed By: #### BMP, CBCA #### [facility] ([id number]) [address] [place] [address] 19127YASH (RBC) [Mass/Vol]33.3 g/uEAcfyxl45-67XlkWyegdgMansfield HospitalComment on above:Performed By: #### BMP, CBCA #### [facility] ([id number]) [address] [place] [address] 80859AIA (RBC) [Entitic vol]93 gZXwtgao31-804JzcIvtuhwMansfield HospitalComment on above:Performed By: #### BMP, CBCA #### [facility] ([id number]) [address] [place] [address] 58314Mkqotlbkd (Bld) [#/Vol]1.3 10*3/uLHigh0-0.9M[facility]field HospitalComment on above:Performed By: #### BMP, CBCA #### [facility] ([id number]) [address] [place] [address] 58908Zpyokuxhu/100 WBC (Bld)7.4 %[facility] Comment on above:Performed By: #### BMP, CBCA #### [facility] ([id number]) [address] [place] [address] 03679Vikdrjxmtkv/100 WBC (Bld)87.3 %[facility] Comment on above:Performed By: #### BMP, CBCA #### [facility] ([id number]) [address] [place] [address] 50209Mxejcbmy mean volume (Bld) [Entitic vol]7.8 fLNormal7-12 [facility] HospitalComment on above:Performed By: #### JÚNIOR ROSE #### [facility] ([id number]) [address] [place] [address] 00914Kkurshxdx (Bld) [#/Vol]305 10*3/rHGtjxix450-956QdxXvrfie [facility] HospitalComment on above:Performed By: #### JÚNIOR ROSE #### [facility] ([id number]) [address] [place] [address] 56774SUG COUNT5.01 X10E12/LNormal4.10-5.70[facility] Comment on above:Performed By: #### JÚNIOR ROSE #### [facility] ([id number]) [address] [place] [address] 55864WOK (Bld) [#/Vol]17.1 10*3/uLHigh4.0-11.0[facility] HospitalComment on above:Performed By: #### JÚNIOR ROSE #### [facility] ([id number]) [address] [place] [address] 90971UM ANKLE RT WO CONTon 21-20-2999ZI ANKLE RT WO CONTCT ANKLE RT WO [...] by Wolf Teresa MD on 04/06/2024 6:02 [facility]-13-0433DE BRAIN WO CONTCT BRAIN WO CONT CT [...] by Heath Kennedy MD on 04/06/2024 2:[address] [facility] [address] CERVICAL SPINE WO CONTon 05-72-5875CF CERVICAL SPINE WO CONTCT CERVICAL SPINE WO [...] by Kemal Fletcher MD on 04/06/2024 2:34 [facility] XR ANKLE RT 2 VWSon 70-84-0578AS ANKLE RT 2 VWSXR ANKLE RT 2 VWS History: Injury, displaced proximal fibular and distal tibia fracture. EXAM: Right ankle AP lateral COMPARISON: Right tibia-fibula IMPRESSION: Displaced oblique distal tibial fracture partly imaged. Nondisplaced fracture line extends through the medial malleolus. No dislocation or osseous destruction. Finalized by Tad Mcnulty MD on 04/06/2024 12:42 [facility] VWon 17-30-4600LA CHEST 1 VWXR CHEST 1 VW HISTORY: [...] by Ap Forrester MD on 04/06/2024 5:19 [facility] HospitalXR SHOULDER RT MIN 2 VWSon 19-40-8382VU SHOULDER RT MIN 2 VWSXR SHOULDER RT [...] by Julián Franco MD on 04/06/2024 2:34 [facility]NPaul[facility] HospitalXR TIBIA FIBULA RT MIN 2 VWSon 32-16-7629OT TIBIA FIBULA RT MIN 2 VWSXR TIBIA [...] by Tommy Fraser MD on 04/06/2024 12:36 [facility] HospitalRESPIRATORY PANEL PLUSon 25-73-0523IfwuqjzhcuPpg detectedNormalNOT DETECTEDThe [facility]rville HospitalComment on above:Performed By: #### RSPLUS #### [facility] [address] [place] [address] Dr. Shawnee Barlow ParapertusisNot detectedNormalNOT DETECTEDThe [facility] HospitalComment on above:Performed By: #### RSPLUS #### [facility] [address] [address] [address] Shawnee Barlow PertussisNot detectedNormalNOT DETECTEDThe [facility] Comment on above:Performed By: #### RSPLUS #### [facility] [address] [address] [address] Shawnee BainChlamydia PneumoniaeNot detectedNormalNOT DETECTEDThe [facility] HospitalComment on above:Performed By: #### RSPLUS #### [facility] [address] [address] [address] Shawnee BainCoronavirus 229ENot detectedNormalNOT DETECTEDThe [facility] HospitalComment on above:Performed By: #### RSPLUS #### [facility] [address] [address] [address] Shawnee BainCoronavirus QJG1Udn detectedNormalNOT DETECTEDThe [facility] HospitalComment on above:Performed By: #### RSPLUS #### [facility] [address] [address] [address] Shawnee BainCoronavirus OV60Mjk detectedNormalNOT DETECTEDThe Aultman Orrville HospitalComment on above:Performed By: #### RSPLUS #### [facility] [address] [address] [address] Shawnee BainCoronavirus XW36Tpv detectedNormalNOT DETECTEDThe [facility]rville HospitalComment on above:Performed By: #### RSPLUS #### [facility] [address] [address] [address] Shawnee BainInflkathe A H1 2009Not detectedNormalNOT DETECTEDThe [facility]rville HospitalComment on above:Performed By: #### RSPLUS #### [facility] [address] [address] [address] Shawnee BainInflsonnynhumza A H3Not detectedNormalNOT DETECTEDThe [facility] Comment on above:Performed By: #### RSPLUS #### [facility] [address] [address] [address] Shawnee Crocker BNot detectedNormalNOT DETECTEDThe [facility] Comment on above:Performed By: #### RSPLUS #### [facility] [address] [address] [address] Shawnee CantuapneumovirusNot detectedNormalNOT DETECTEDThe [facility] HospitalComment on above:Performed By: #### RSPLUS #### [facility] [address] [address] [address] Shawnee Miller. PneumoniaeNot detectedNormalNOT DETECTEDThe [facility] HospitalComment on above:Performed By: #### RSPLUS #### [facility] [address] [address] [address] Shawnee Saunders 1Not detectedNormalNOT DETECTEDThe [facility] HospitalComment on above:Performed By: #### RSPLUS #### [facility] [address] [address] [address] Shawnee Saunders 2Not detectedNormalNOT DETECTEDThe [facility] HospitalComment on above:Performed By: #### RSPLUS #### [facility] [address] [address] [address] Shawnee Saunders 3Not detectedNormalNOT DETECTEDThe [facility] HospitalComment on above:Performed By: #### RSPLUS #### [facility] [address] [address] [address] Shawnee Saunders 4Not detectedNormalNOT DETECTEDThe [facility] HospitalComment on above:Performed By: #### RSPLUS #### [facility] [address] [address] [address] Shawnee BainRhdemi/EnterovirusNot detectedNormalNOT DETECTEDThe [facility] HospitalComment on above:Performed By: #### RSPLUS #### [facility] [address] [address] [address] Shawnee Davis Header 1RESPIRATORY PANEL: [facility]IRUSESNormAshtabula [facility] Comment on above:Performed By: #### RSPLUS #### [facility] [address] [place] [address] Dr. Shawnee Yoder2 Header 2RESPIRATORY PANEL: [facility] on above:Performed By: #### RSPLUS #### [facility] [address] [place] [address] Dr. Shawnee BainRSVNot detectedNormalNOT DETECTEDThe [facility] HospitalCommunson [facility] on above:Performed By: #### RSPLUS #### [facility] [address] [place] [address] Dr. Shawnee Dixon-CoV-2 (COVID-19) RNA ELENA+probe Ql (Unsp spec)Detected Critically abnormalNOT DETECTEDThe [facility] HospitalCommunson [facility] on above:Performed By: #### RSPLUS #### [facility] [address] [place] [address] Dr. Shawnee Youngpletbrandi Blood Counton [id number] distribution width (RBC) [Ratio]13.4 %Xdmeri64.0-15.0[facility]Commun[facility] on above:Performed By: #### LIPD, CBC, CMP #### [facility] [address], [place] [id number] (Bld) [Volume fraction]48.4 %Ttyiev14.5-50.0 [facility] on above:Performed By: #### LIPD, CBC, CMP #### [facility] [address], [place] [id number] (Bld) [Mass/Vol]16.0 g/kUMvtbje39.0-17.1NorthTwin City HospitalComment on above:Performed By: #### LIPD, CBC, CMP #### [facility] [address], [place] [id number] (RBC) [Entitic mass]30.9 zwSsdptk75.0-33.0NoWVUMedicine Harrison Community Hospital SpecialistComment on above:Performed By: #### LIPD, CBC, CMP #### [facility] [address], [place] [id number] (RBC) [Mass/Vol]33.1 g/aYUasfgt57.0-36.0NoWVUMedicine Harrison Community Hospital SpecialistComment on above:Performed By: #### LIPD, CBC, CMP #### [facility] [address], [place] [id number] (RBC) [Entitic vol]94 xRNmyemp74-383Izafdlxm [place] [facility] SpecialistComment on above:Performed By: #### LIPD, CBC, CMP #### [facility] [address], [place] [id number] mean volume (Bld) [Entitic vol]9.90 fLNormal 7.50-12.50[facility] SpecialistComment on above:Performed By: #### LIPD, CBC, CMP #### [facility] [address], [place] [id number] (Bld) [#/Vol]302 10*3/mELdkqxj392-320Ncjqeqxn [place] [facility] SpecialistComment on above:Performed By: #### LIPD, CBC, CMP #### [facility] [address], [place] [id number] (Bld) [#/Vol]5.17 10*6/uLNormal4.20-5.80[facility] SpecialistComment on above:Performed By: #### LIPD, CBC, CMP #### [facility] [address], [place] [id number]-AI03.3 mRQoivde62.0-50.0NoWVUMedicine Harrison [facility] Hospital Specialist Comment on above:Performed By: #### LIPD, CBC, CMP #### [facility] [address], [place] [id number] (Bld) [#/Vol]6.6 10*3/uLNormal3.8-11.0[facility] SpecialistComment on above:Performed By: #### LIPD, CBC, CMP #### [facility] [address], [place] [id number] Metabolic Panelon 57-72-5549Okhnsmm [Mass/Vol] 4.4 g/dLNormal3.6-5.1[facility] SpecialistComment on above:Performed By: #### LIPD, CBC, CMP #### [facility] [address], [place] [id number]/Globulin [Mass ratio]1.7 {ratio}Normal1.0-2.5NoWVUMedicine Harrison [facility] Hospital SpecialistComment on above:Performed By: #### LIPD, CBC, CMP #### [facility] [address], [place] [id number] [Catalytic activity/Vol]106 U/SKsypdg72-870Lkvnidah [place] [facility] SpecialistComment on above:Performed By: #### LIPD, CBC, CMP #### [facility] [address], [place] [id number] [Catalytic activity/Vol]14 U/LNormal9-46NoWVUMedicine Harrison [facility] Hospital SpecialistComment on above:Result Comment: 05/01/2021 Female reference range changed.Performed By: #### LIPD, CBC, CMP #### [facility] [address], [place] [id number] gap [Moles/Vol]18 mmol/YPywpjh50-82Iwoyfvvx [place] [facility] SpecialistComment on above:Result Comment: Effective 06/06/2019 reference range changed.Performed By: #### LIPD, CBC, CMP #### [facility] [address], [place] [id number] [Catalytic activity/Vol]22 U/XMezszj90-77Rqwuazyw [place] [facility] SpecialistComment on above:Performed By: #### LIPD, CBC, CMP #### [facility] [address], [place] [id number] [Mass/Vol]0.46 mg/dLNormal0.30-1.20NoWVUMedicine [facility] SpecialistComment on above:Performed By: #### LIPD, CBC, CMP #### [facility] [address], [place] [id number]/CREA22 RatioNormal6-22[employer] Comment on above:Performed By: #### LIPD, CBC, CMP #### [facility] [address], [place] [id number] [Mass/Vol]9.6 mg/dLNormal8.6-10.2[facility] SpecialistComment on above:Performed By: #### LIPD, CBC, CMP #### [facility] [address], [place] [id number] [Moles/Vol]107 mmol/FFwqall73-528Pgeeqyom [place] [facility] SpecialistComment on above:Performed By: #### LIPD, CBC, CMP #### [facility] [address], [place] [id number] [Moles/Vol]24 mmol/ZEiomgt52-97Xapdpjje [place] [facility] SpecialistComment on above:Performed By: #### LIPD, CBC, CMP #### [facility] [address], [place] [id number] [Mass/Vol]1.2 mg/dLNormal0.7-1.4Nortreunion rehabilitation hospital phoenixn [facility] SpecialistComment on above:Performed By: #### LIPD, CBC, CMP #### [facility] [address], [place] [id number] mL/min/1.01d7Xtnfrn>60[facility] SpecialistComment on above:Performed By: #### LIPD, CBC, CMP #### [facility] [address], [place] [id number] mL/min/1.70x8Kpo>60NoWVUMedicine [facility] Specialist Comment on above:Performed By: #### LIPD, CBC, CMP #### [facility] [address], [place] [id number] (S) [Mass/Vol]2.6 g/dLNormal1.9-3.7[facility] SpecialistComment on above:Performed By: #### LIPD, CBC, CMP #### [facility] [address], [place] [id number] [Mass/Vol]97 mg/sEHdfmwj79-22Qxcpkxyv [place] [facility] SpecialistComment on above:Result Comment: For FASTING Glucose --- ADA reference ranges: Normal 65-99 mg/dl Prediabetes 100-125 Diabetes >/= 126Performed By: #### LIPD, CBC, CMP #### [facility] [address], [place] [id number] [Moles/Vol]4.5 mmol/LNormal3.5-5.5NoWVUMedicine [facility] SpecialistComment on above:Performed By: #### LIPD, CBC, CMP #### [facility] [address], [place] [id number] [Mass/Vol]7.0 g/dLNormal6.1-8.1NortherRiverview Health Institute SpecialistComment on above:Performed By: #### LIPD, CBC, CMP #### [facility] [address], [place] [id number] [Moles/Vol]144 mmol/YUcoqev872-935Xtcmhtpy [place] [facility] SpecialistComment on above:Performed By: #### LIPD, CBC, CMP #### [facility] [address], [place] [id number] nitrogen [Mass/Vol]26 mg/dLHigh7-25NoWVUMedicine [facility] SpecialistComment on above:Performed By: #### LIPD, CBC, CMP #### [facility] [address], [place] [id number] Panelon 45-08-2387Itvagayfiqf [Mass/Vol]224 mg/dLHigh 125-200NoWVUMedicine [facility] SpecialistComment on above:Result Comment: Low risk < 200mg/dL Borderline risk 201-239 mg/dl High risk > or equal to 240Performed By: #### LIPD, CBC, CMP #### [facility] [address], [place] [id number] in HDL [Mass/Vol]55 mg/dLNormal>40NoWVUMedicine [facility] SpecialistComment on above:Result Comment: High Cardiovascular Risk HDL <40 mg/dL Low Cardiovascular Risk HDL > or equal to 60 mg/dlPerformed By: #### LIPD, CBC, CMP #### [facility] [address], [place] [id number] in LDL [Mass/Vol]152 mg/dLNoOhio State University Wexner Medical CenterComment on above:Result Comment: LDL ATP III CLASSIFICATION LDL less than 100 mg/dl Optimal LDL 100-129 mg/dl Near or above optimal LDL 130-159 Borderline high LDL 160-189 High LDL greater than 189 mg/dl Very HighPerformed By: #### LIPD, CBC, CMP #### [facility] [address], [place] [id number] in VLDL [Mass/Vol]17 mg/dLNoMercy Health St. [facility] SpecialistComment on above:Performed By: #### LIPD, CBC, CMP #### [facility] [address], [place] [id number].total/Cholesterol in HDL [Mass ratio]4 {ratio} NormalBlanchard Valley Health System SpecialistComment on above:Performed By: #### LIPD, CBC, CMP #### [facility] [address], [place] [id number] [Mass/Vol]83 mg/kZJjsdfi34-440PnzqadsrRiverside Methodist HospitalComment on above:Result Comment: TRIG ATPIII CLASSIFICATIONS TRIG less than 150 mg/dl Normal TRIG 150-199 mg/dl Borderline High TRIG 200-500 mg/dl High TRIG greather than 500 mg/dl Very HighPerformed By: #### LIPD, CBC, CMP #### [facility] [address], [place] [id number] Specific Antigen, Totalon 55-08-0563TMJN2.530 ng/mL High<4.000[facility] SpecialistComment on above:Result Comment: PSA Test Method: ECLIA/Barron e 601Performed By: #### PSA #### [facility] [address], [place] [id number] W MANUAL DIFFon [id number] LYMPH #NormalMckitrick HospitalComment on above:Performed By: #### CBCMAN #### [facility] [address] [place] [address] Bri KarenATYPICAL LYMPH %NormalThe Orange HospitalComment on above: Performed By: #### KELIN #### [facility] [address] [place] [address] Bri KarenBAND #0.1 103/ulNormal0.0-0.3The [facility]rville HospitalComment on above: Performed By: #### KELIN #### [facility] [address] [place] [address] Bri KarenBAND %1 %Normal0-5The [facility] HospitalComment on above:Performed By: #### KELIN #### [facility] [address] [place] [address] Bri KarenBASOM #0.00 103/ulNormal0.00-0.10The [facility]rville HospitalComment on above:Performed By: #### KELIN #### [facility] [address] [place] [address] Bri KarenBASOM %0.0 %Critically low0.2-2.0The [facility]rville HospitalComment on above:Performed By: ###Pepe NEVILLE #### [facility] [address] [place] [address] Bri KarenBLAST #NormalMckitrick HospitalCommunson healthcare [facility] hospital on above:Performed By: #### KELIN #### [facility] [address] [place] [address] Bri KarenBLAST %NormalMckitrick HospitalComment on above:Performed By: #### KELIN #### [facility] [address] [place] [address] Bri KarenCORRECTED WBCNormal4.0-11.0The [facility]rville HospitalComment on above: Performed By: #### KELIN #### [facility] [address] [place] [address] Bri KarenEOS #0.11 103/ulNormal0.00-0.70The [facility] HospitalComment on above:Performed By: #### KELIN #### [facility] [address] [place] [address] Bri KarenEOS%1.0 %Normal0.9-7.0The [facility]rville HospitalComment on above: Performed By: #### KELIN #### [facility] [address] [place] [address] Bri TsdpkJXW91.5 %Wzmjnr71.0-54.0The [facility]rville HospitalComment on above: Performed By: #### KELIN #### [facility] [address] [place] [address] Bri NwdkkWLV11.9 g/kzZrzqpd43.0-18.0The [facility] HospitalComment on above: Performed By: #### KELIN #### [facility] [address] [place] [address] Bri KarenLYMPHM #1.93 103/ulNormal1.20-3.80The [facility] HospitalComment on above:Performed By: #### KELIN #### [facility] [address] [place] [address] Bri KarenLYMPHM%18.0 %Critically low20.5-60.0The [facility] HospitalComment on above:Performed By: #### KELIN #### [facility] [address] [place] [address] Bri TrcgeEWJ71.2 khGydfot22.9-34.0The [facility] HospitalComment on above: Performed By: #### KELIN #### [facility] [address] [place] [address] Bri XpwtdWKDR15.2 g/loJokfpz89.9-35.2The [facility] HospitalComment on above: Performed By: #### KELIN #### [facility] [address] [place] [address] Bri UymwoHHU15.2 sXHtaase77.0-94.0The [facility] HospitalComment on above: Performed By: #### KELIN #### [facility] [address] [place] [address] Bri KarenMETAMYELOCYTE #NormalThe [facility] HospitalComment on above:Performed By: #### KELIN #### [facility] [address] [place] [address] Bri KarenMETAMYELOCYTE %NormalMckitrick HospitalComment on above:Performed By: #### KELIN #### [facility] [address] [place] [address] Bri KarenMONOM#0.64 103/ulNormal0.30-0.80The [facility] HospitalComment on above:Performed By: #### KELIN #### [facility] [address] [place] [address] Bri KarenMONOM%6.0 %Normal1.7-12.0The [facility] HospitalComment on above: Performed By: #### KELIN #### [facility] [address] [place] [address] Bri KarenMPV9.4 fLCritically low9.5-13.5The [facility] HospitalComment on above:Performed By: #### KELIN #### [facility] [address] [place] [address] Bri KarenMYELOCYTE #NormalUniversity Hospitals Portage Medical Center on above:Performed By: #### KELIN #### [facility] [address] [place] [address] Bri KarenMYELOCYTE %NormalMckitrick HospitalCommunson healthcare [facility]ist[facility] hospital on above:Performed By: #### KELIN #### [facility] [address] [place] [address] Bri KarenNRBCNormalThe [facility] HospitalComment on above:Performed By: #### KELIN #### [facility] [address] [place] [address] Bri VitthRYO768 103/bzDcgxgg370-320Uwp [facility] HospitalCommunson healthcare [facility] hospital on above: Performed By: #### KELIN #### [facility] [address] [place] [address] Bri KarenRBC5.10 106/ulNormal4.70-6.10The Lutheran Hospitalment on above: Performed By: #### KELIN #### [facility] [address], [place] [address] Bri McnallyRDW13.2 %Ciiime26.0-15.0The [facility] HospitalComment on above: Performed By: #### ZIGGYSUNDAY #### [facility] [address], [place] [address] Bri BurtonG #7.92 103/ulCritically high1.40-6.50The [facility] HospitalComment on above:Performed By: #### CBCSUNDAY #### [facility] [address], [place] [address] Bri BurtonG %74.0 %Cetsum08.0-75.0The [facility] HospitalComment on above: Performed By: #### CBCSUNDAY #### [facility] [address], [place] [address] Bri NievesenWBC10.7 103/ulNormal4.0-11.0The [facility] HospitalComment on above: Performed By: #### KELIN #### [facility] [address] [id number] Bri KarenCT ABD/PELVIS WO CONon [id number] ABD/PELVIS WO CONEXAMINATION: CT ABD/PELVIS WO CON, [...] Electronically authenticated by: ZEKE TREVINO Date: 2020-12-21 07:50[facility] URINE PROFILEon [id number] Ql (U)NegativeNormal NEGATIVEMckitrick HospitalComment on above:Performed By: #### COURTNEY GOMEZ #### [facility] [address] [place] [address] Bri KarenClarity (U)CLEARNormalCLEARMckitrick HospitalComment on above: Performed By: #### COURTNEY GOMEZ #### [facility] [address] [place] [address] Bri KarenColor (U)LT. YELLOWNormalYELLOWMckitrick HospitalComment on above:Performed By: #### COURTNEY GOMEZ #### [facility] [address] [place] [address] Bri KarenERUAHDA micrscopic examination will be performed if indicated.Normal The [facility] HospitalComment on above:Performed By: #### NAHUM GOMEZR #### [facility] [address] [place] [address] Bri KarenGlucose Ql (U)NegativeNormalNEGATIVEMckitrick HospitalComment on above:Performed By: #### COURTNEY GOMEZ #### [facility] [address] [place] [address] Bri KarenHemoglobin Ql (U)SMALLAbnormalNEGATIVEMckitrick HospitalComment on above:Performed By: #### NAHUM GOMEZR #### [facility] [address] [place] [address] Bri KarenKetones Ql (U)NegativeNormalNEGATIVEThe Orange HospitalComment on above:Performed By: #### COURTNEY GOMEZ #### [facility] [address] [place] [address] Bri KarenLEUKOCYTESNegativeNormalNEGATIVEMckitrick HospitalComment on above:Performed By: #### JASON ERUR #### [facility] [address] [place] [address] Bri KarenNitrite Ql (U)NegativeNormalNEGATIVEThe Orange HospitalComment on above:Performed By: #### NAHUM GOMEZR #### [facility] [address] [place] [address] Bri KarenpH (U)6.0 [pH]Normal5-9The [facility] HospitalComment on above: Performed By: #### NAHUM GOMEZR #### [facility] [address] [place] [address] Bri KarenSPEC GRAVITY1.536Qnnybn9.005-<=1.025The [facility]rville HospitalComment on above:Performed By: #### COURTNEY GOMEZ #### [facility] [address] [place] [address] Bri KarenUA PROTEINNegativeNormalNEGATIVE/ TRACEThe [facility] HospitalComment on above:Performed By: #### NAHUM GOMEZR #### [facility] [address] [place] [address] Bri KarenUR MICRO INDINDICATEDNormalThe [facility] HospitalComment on above: Performed By: #### NAHUM GOMEZR #### [facility] [address] [place] [address] Bri KarenUrobilinogen Qn (U)0.2 {Zohreh'U}/dLNormal0.2 - 1.0The Orange HospitalComment on above:Performed By: #### NAHUM GOMEZR #### [facility] [address] [place] [address] Bri KarenPROF CHEM 8 (BAS METB)on 64-59-4812Nlqzq gap [Moles/Vol]15.0 mmol/L NormalMckitrick HospitalComment on above:Performed By: #### BMP #### [facility] [address] [place] [address] Bri KarenCalcium [Mass/Vol]9.1 mg/dLNormal8.4-10.2The [facility] Comment on above:Performed By: #### BMP #### [facility] [address] [place] [address] Bri KarenChloride [Moles/Vol]101 mmol/ADghuih85-782Wkd [facility] Comment on above:Performed By: #### BMP #### [facility] [address] [place] [address] Bri KarenCO2 [Moles/Vol]27.0 mmol/CLcjcwf51.0-30.0The [facility] Comment on above:Performed By: #### BMP #### [facility] [address] [place] [address] Bri KarenCreatinine [Mass/Vol]1.81 mg/dLCritically high0.66-1.25The [facility] HospitalComment on above:Performed By: #### BMP #### [facility] [address] [place] [address] Bri KarenEGFR-AF EULNXCSE64 mL/min/1.08z3Vmzrxygoxa low>=60The [facility] HospitalComment on above:Performed By: #### BMP #### [facility] [address] [place] [address] Bri KarenEGFR-NON AF LPRFTVGC41 mL/min/1.66i5Zkdnuvhxfa low>=60The [facility] HospitalComment on above:Performed By: #### BMP #### [facility] [address] [place] [address] Bri KarenGlucose [Mass/Vol]132 mg/dLCritically tgdk25-753Jnr [facility] HospitalComment on above:Performed By: #### BMP #### [facility] [address] [place] [address] Bri KarenPotassium [Moles/Vol]4.0 mmol/LNormal3.4-5.0[facility] Comment on above:Performed By: #### BMP #### [facility] [address] [address] Bri KarenSodium [Moles/Vol]139 mmol/OEvxkjv723-043Vfl [facility] Comment on above:Performed By: #### BMP #### [facility] [address] [address] Bri KarenUrea nitrogen [Mass/Vol]20.0 mg/dLNormal9.0-20.0Mckitrick HospitalComment on above:Performed By: #### BMP #### [facility] [address] [place] [address] Bri KarenUrea nitrogen/Creatinine [Mass ratio]11.0 mg/mgNoalThe [facility] HospitalComment on above:Performed By: #### BMP #### [facility] [address] [place] [address] Bri KarenURINE MICROSCOPIC ONLYon [id number]A SEENMckitrick HospitalComment on above:Performed By: #### JASON ERUR #### [facility] [address] [place] [address] Bri KarenBacteria identified Cx Nom (U)NOT INDICATEDNoalThAdena Regional Medical CenterComment on above:Performed By: #### JASON ERUR #### [facility] [address] [place] [address] Bri KarenCASTNONE SEENNormalNONE SEENMckitrick HospitalComment on above: Performed By: #### JASON ERUR #### [facility] [address] [place], [place] [id number] Bri KarenCrystals LM Nom (Urine sed)NONE SEENNormalNONE SEENMckitrick HospitalComment on above:Performed By: #### JASON ERUR #### [facility] [address] [place], [place] [id number] Bri KarenEpithelial cells LM Ql (Urine sed)RARENormalNONE SEEN /RAREMckitrick HospitalComment on above:Performed By: #### JASON, ERUR #### [facility] [address] [place], [place] [address] Bri NievesenMUCOUSNONE SEENNormalNONE SEENMckitrick HospitalCommunson healthcare [facility]ist[facility] hospital on above: Performed By: #### JASON, ERUR #### [facility] [address] [id number] Bri McnallyPrbrjKXD8-53Eqyhbuww5-8Vow [facility] HospitalComment on above:Performed By: #### JASON, ERUR #### [facility] [address] [place], [place] [address] Bri NievesenWBC0-2AbnormalNONE SEENMckitrick HospitalComment on above: Performed By: #### JASON, ERUR #### [facility] [address] [id number] Bri Mcnally Vital Signs Date TimeVital SignValuePerforming SdeisuhyxAveblrkk44-14-5627 10:22-0400Body .[address]07-24-2025 10:22-0400Body mass index (BMI) [Ratio]21.46 kg/m2Pmh [address] [place], [place] 2793907-24-2025 10:22-0400Body bjykfr66.[address] [place], [place] 2793901-22-2025 11:29-0500Body bfuzvf658.2 cmDamion Nuñez MD Work Phone: [facility] NorthLibllxxtqu53-14-2199 11:29-0500Body mass index (BMI) [Ratio]23.49 kg/r9IzvwymDamion Nuñez MD Work Phone: [phone] J. Siteman Cancer CenterOnvgwitxyx86-05-3872 11:29-0500Body rajqvo24.04 kgDamion Nuñez MD Work Phone: [facility] NorthQxrhvbmfko89-65-6865 11:29-0500Diastolic blood zestmzuo00 mm[Hg]Damion Nuñez MD Work Phone: [facility] NorthEigslmryjb11-51-3235 11:29-0500Heart rate70 /min Damion Nuñez MD Work Phone: [facility] NorthLvataimumu83-38-2954 11:29-8178AjV5% (BldA) [Mass fraction]95 %Damion Nuñez MD Work Phone: 1(808)[facility]-138SportisticCox NorthZdnbpjqeyr10-31-4343 11:29-0500Systolic blood fifegkjb293 mm[Hg]Damion Nuñez MD Work Phone: 1(053)[facility] [place], [place] [address]Pexwpnialh61-71-8026 11:12-0500Body qnqyyl761.2 cmDakavon Nuñez MD Work Phone: [phone])[facility] [place], [place] [address]Meubkuucmt15-43-1529 11:12-0500Diastolic blood oqtbwntv44 mm[Hg]Damion Nuñez MD Work Phone: 1(127)[facility] [place], [place] [address]Shtreroakd39-41-7797 11:12-0500Heart rate79 /min Damion Nuñez MD Work Phone: 1(532)[facility] [place], [place] [address]Ortcheeted33-71-9552 11:12-9113AwK4% (BldA) [Mass fraction]92 %Damion Nuñez MD Work Phone: 1([phone])[facility]-[address] [place], [place] [address]Ilibxabljj11-47-2359 11:12-0500Systolic blood mm[Hg]Damion Nuñez MD Work Phone: [facility] Healthcare Encounters Encounter DateEncounter TypeCare ProviderFacilityStart: 01-26-2025 End: 22-45-1598Cnjqzwfhej and management of inpatientSUSAN E [facility] Memorial Hospitaltart: 01-12-2025 End: 86-79-6476Wlrhizwzup and management of inpatientSUSAN E [facility] HospitalStart: 12-22-2024 End: 25-40-6276Cgnelwr encounter procedurePmh Pre-Admission Testing [address] [place] [address] - Pre AdmitComment on above:Preop examination (Primary Dx); Other emphysema (CMS-HCC)Start: 12-22-2024 End: 16-16-6625Wapfxsqotktcr examination donePmh [address] [place] [address] SystemStart: 12-22-2024 End: 45-97-3489tcwttmchtqVVVMJ M SOMMERSGlenbeigh Hospital HospitalStart: 06-22-2024 End: 81-17-5753Jrgvuz flowsheetDamion Nuñez MD Work Phone: [facility] FMStart: 06-22-2024 End: 32-37-5041Jzajsr flowsJong Nuñez MD Work Phone: NOZP CI FMStart: 06-22-2024 End: 99-28-7611Hyehv of hemosiderin, quantDamion Nuñez MD Work Phone: [facility] Work Phone: Start: 06-22-2024 End: 18-24-7053Udcspuj encounter procedureDamion Nuñez MD Work Phone: noms CI FMComment on above:Routine general medical examination at health care facility (Primary Dx); ACP (advance care planning); Panlobular emphysema (CMS/HCC); Prostate cancer (CMS/HCC)Start: 06-22-2024 End: 98-32-5691lhxyzfkmieTUAKXD B BERRYNot AvailableStart: 05-16-2024 End: 07-42-5090dtmkljmcciCYFGQWNABristow [facility] PPGStart: 04-27-2024 End: 16-04-9941Smypyvnlkody care manage srvc 14 day dischargeDweston Nuñez MD Work Phone: noms CI FMComment on above:Closed fracture of right tibia and fibula with routine healing, subsequent encounter (Primary Dx); Panlobular emphysema (CMS/HCC); Prostate cancer (CMS/HCC)Start: 04-27-2024 End: 71-19-8701kmidirrvyaSDJNJY B BERRYNot AvailableStart: 04-26-2024 End: 94-25-2111bdbythxofkZMTZTJCKArkansas Valley Regional Medical Center HospitalStart: 87-44-8772Lgqbvazwa for other preprocedural examinationPAUL [facility] HospitalStart: 04-06-2024 End: 75-71-9875Pgtuxhjatv and management of inpatientDAMION NUÑEZGlenbeigh Hospital HospitalStart: 12-16-2023 End: 06-58-8404nxafqaxisvSEWXSF B BERRYNot AvailableStart: 11-21-2021 End: 98-43-0459whcqchvxnuUH DAMION TAYLORFacility:K6Ksjhu: 12-21-2020 End: 89-14-7611hgaiosseaxLD SANIA TREFacility:H1 Procedures DateProcedureProcedure DetailPerforming ClinicianStart: 23-97-3342Byqot depression screening assessmentLancaster [facility] 1 Plan of Treatment DateCare ActivityDetailAuthorStart: 33-64-9542Ugoxyhk ScreeningTobacco Screening [facility] SystemStart: 01-22-2026Medicare Annual Wellness (AWV)Medicare Annual Wellness (AWV)[facility] HealthcareStart: 63-53-9510Inrqjormoc Screening Depression ScreeningGeorgetown Behavioral Hospital SystemStart: 38-00-2601Edusuxqfw vaccinationInfluenza VaccineGeorgetown Behavioral Hospital SystemStart: 01-26-2025 End: 39-51-5571Jzeshoxkh to same day surgery lgbsix7101/26/2025 12:45 PM EDT - 01/26/2025 1:30 PM EDT Surgery [facility] [address] [place] [address] Danette Santa MD [address] [place] [address] [id number] EXTRACTION CATARACT INTRAOCULAR LENS [13341 (CPT )][facility] SurgeryComment on above:EXTRACTION CATARACT INTRAOCULAR LENS [44429 (CPT )] Start: 55-70-9495Qrpglepwah hospital visit by ifcgvrbtm52/28/2025 12:45 PM EDT Hospital Encounter [facility] [address] [place] [address] Danette Santa MD [address] [place] [address] [facility] SurgeryStart: 01-26-2025 End: 98-00-6545Abvgqn ctrc rmvl insj io lens prosth w/o ecpEXTRACTION CATARACT INTRAOCULAR LENS cataract left eye 01/26/2025 12:45 PM EDTFREMONT SURGERYStart: 01-25-2025 End: 73-88-2450xlqjnqxkkj97/27/2025 3:40 PM EDT Support Visit [facility]mit [address] [address] [facility] AdmitStart: 01-12-2025 End: 52-56-6234Phzlnqhvp to same day surgery utiing0001/12/2025 12:45 PM EDT - 01/12/2025 1:30 PM EDT Surgery [facility] [address] [facility] [place] [address] Danette Santa MD [address] [place] [address] [phone] EXTRACTION CATARACT INTRAOCULAR LENS [11490 (CPT )][facility] - SurgeryComment on above:EXTRACTION CATARACT INTRAOCULAR LENS [36284 (CPT )] Start: 70-65-5550Buxcybrwar hospital visit by ayoixjrhs14/14/2025 12:45 PM EDT Hospital Encounter [facility] [address] [facility] [place] [address] Danette Santa MD [address] [place] [address] [id number] [facility] SurgeryStart: 01-12-2025 End: 17-18-3218Qwitad ctrc rmvl insj io lens prosth w/o ecpEXTRACTION CATARACT INTRAOCULAR LENS cataract right eye 01/12/2025 12:45 PM EDTFREMONT SURGERYStart: 12-19-2024 End: 10-63-0651Zyjcgxc encounter qxkhsrhig02/21/2025 1:30 PM EDT Office Visit [facility] [address] [place] [address] Damion Nuñez MD [address] [facility] [address] [place] [address] [facility] FMStart: 07-17-2025Medicare Annual Wellness (AWV) Medicare Annual Wellness (AWV)[facility] HealthcareStart: 06-22-2024 End: 18-56-6294Mqojnyz encounter procedureNOMS CI FMComment on above:Arrived Start: 47-12-9657Cbkiutkrs vaccinationInfluenza Vaccine (#1)[facility] Healthcare Start: 55-63-5922Cvjn Risk ScreeningFall Risk ScreeningGeorgetown Behavioral Hospital System Start: 00-49-7562Dvkqrjbcgtzthq of varicella zoster vaccineZoster (Shingles) Vaccine (1 of 2)[facility] Hospitaltart: 36-20-1376QWnH,Tdap and Td Vaccines (1 - Tdap)DTaP,Tdap and Td Vaccines (1 - Tdap)[facility] Start: 64-61-9731Gkqkinejvjlz Vaccine: 65+ Years (1 of 2 - PCV)Pneumococcal Vaccine: 65+ Years (1 of 2 - PCV)[facility] Payers DatePayer CategoryPayerPolicy ID2019Medicare (Managed Care)[employer] [id number] 2018Medicare HMOANTHEM MEDICARE Member Subscriber Plan / Payer (Effective 2017-Present) Name: Negar Silveira Relation to Subscriber: Self Name: Negar Silveira Payer ID: [id number] ([place]) Group ID: [id number] Type: Not on file Address: [facility] [address] [place] [id number] [id number] 2.16840.1.531355.3.57[id number]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
[2025-05-30 11:32] LABS: Blood Urea Nitrogen 19.0 mg/dL (7.0-18.0); Calcium 9.3 mg/dL (8.5-10.1); Carbon Dioxide 28.4 mmol/L (21.0-32.0); Chloride 102 mmol/L (98-107); Estimated GFR (African America 58 (>=60 mL/min/1.73m^2); Estimated GFR (Non-African Ame 48 (>=60 mL/min/1.73m^2); Sodium 139 mmol/L (136-145); Uric Acid 4.8 mg/dL (3.5-7.2)
[2025-05-30 11:43] LABS: Calcium 24 Hour Urine 264.0 mg/24hr (100.0-300.0); Total Volume 24 Hour Urine 1100 mL/24hr
[2025-05-31 12:09] LABS: Magnesium, U 14.3 mg/dL (Not Estab.); Magnesium,Urine 24hr 157.3 mg/24 hr (12.0-293.0); Phosphorus, Urine 53.1 mg/dL (Not Estab.); Phosphorus,Urine 24h 584 mg/24 hr (210-888); Uric Acid, Urine 26.3 mg/dL (Not Estab.); Uric Acid,Urine 24hr 289.3 mg/24 hr (136.1-771.1)
[2025-05-31 17:06] LABS: BOX Test Reference Lab CLEVELAND; BOX Test Sent Out CA OXALATE
== END 2025-05-30 10:37 | disposition home or self-care (01) ==
LOC: LAB 10:36
PROVIDERS: PCP Internal Medicine; Visit Provider Urology
DX: N20.0 Calculus of kidney (principal)
CPT/HCPCS: 36415; 82310; 82340; 82374; 82435; 82507; 82565; 82570; 83735; 83970; 84100; 84105; 84295; 84300; 84520; 84550; 84560